=== PATIENT | female | born 1955 | race Caucasian/White ===

== ENCOUNTER 2017-06-27 10:47 | Observation (INO) | payer OTHER ==
[2017-06-27] MEDS ORDERED: SODIUM CHLORIDE 0.9% 500 ML IV STA (11:39)
[2017-06-27] MEDS ORDERED: ACETAMINOPHEN TAB 325 MG TAB PO STA (11:40)
[2017-06-27 12:02] LABS: Basophils % (A) 0 %; CHCM 34.8; Eosinophils # (A) 0.1 k/uL (0-0.7); Eosinophils % (A) 1 %; HCT 45.9 % (34.0-46.0); HDW 2.67; HGB 16.1 gm/dL (11.4-16.0); Luc # (Auto) 0.14; Luc % (Auto) 2; Lymphocytes # (A) 1.7 k/uL (1.0-4.8); Lymphocytes % (A) 20 %; MCH 30.4 pg (25.0-35.0); MCHC 35.1 g/dL (31.0-37.0); MCV 86.6 fL (80.0-100.0); Mean Platelet Volume 7.4; Monocytes # (A) 0.5 k/uL (0-1.0); Monocytes % (A) 5 %; Neutrophils # (A) 5.9 k/uL (1.3-7.7); Neutrophils % (A) 71 %; RDW 12.2 % (11.5-15.5); WBC 8.3 k/uL (3.8-10.6); WBC (Perox) 8.23
[2017-06-27 12:03] LABS: ALT 49 U/L (9-52); AST 28 U/L (14-36); Alkaline Phosphatase 69 U/L (38-126); Anion Gap 9 mmol/L; Blood Urea Nitrogen 15 mg/dL (7-17); Calcium 9.2 mg/dL (8.4-10.2); Carbon Dioxide 25 mmol/L (22-30); Chloride 109 mmol/L (98-107); Glucose 90 mg/dL (74-99); Magnesium 1.9 mg/dL (1.6-2.3); Non-African American GFR(MDRD) >60 (>60 ml/min/1.73 sqM); Potassium 4.1 mmol/L (3.5-5.1); Sodium 143 mmol/L (137-145); Total Bilirubin 0.4 mg/dL (0.2-1.3); Total Protein 6.4 g/dL (6.3-8.2)
[2017-06-27 12:04] LABS: Partial Thromboplastin Time 22.9 sec (22.0-30.0)
[2017-06-27 12:07] LABS: Prothrombin Time 10.4 sec (9.0-12.0)
[2017-06-27 12:12] LABS: Creatine Kinase 41 U/L (30-135)
[2017-06-27 12:25] LABS: Creatine Kinase MB 0.6 ng/mL (0.0-2.4); Troponin I <0.012 ng/mL (0.000-0.034)
--- NOTE | 2017-06-27 12:47 | CT ---
EXAMINATION TYPE: CT brain wo con DATE OF EXAM: 06/27/2017 COMPARISON: NONE INDICATION: Headache, elevated blood pressure DLP: 981.7 mGycm, Automated exposure control for dose reduction was used. CONTRAST: None CT of the brain is performed utilizing 3 mm thick sections through the posterior fossa and 3 mm thick sections through the remaining calvarium. Study is performed within 24 hours of arrival to the hosp [facility]. No abnormal hyperdensity is present to suggest an acute intracranial hemorrhage. No mass lesion is evident. No acute infarcts are evident. Ventricles and sulci are appropriate for the patient age. Paranasal sinuses and mastoid air cells within the [id number] are clear. IMPRESSIONS: 1. Normal CT Brain
--- NOTE | 2017-06-27 12:48 | XR ---
EXAMINATION TYPE: XR chest 2V DATE OF EXAM: 06/27/2017 COMPARISON: NONE INDICATION: Chest pain elevated blood pressure TECHNIQUE: Frontal and lateral views of the chest are obtained. FINDINGS: The heart size is normal. The pulmonary vasculature is normal. The lungs are clear. IMPRESSION: 1. No acute pulmonary process.
[2017-06-27] MEDS ORDERED: ASPIRIN 325 MG TAB PO STA (13:17)
[2017-06-27] MEDS ORDERED: ONDANSETRON 4 MG/2 ML VIAL IVP PRN (14:22)
[2017-06-27] MEDS ORDERED: NALOXONE 0.4 MG/ML 1 ML VIAL IV PRN (14:22)
[2017-06-27] MEDS ORDERED: MORPHINE SULFATE 4 MG/ML SYRINGE IV PRN (14:22)
[2017-06-27] MEDS ORDERED: SODIUM CHLORIDE 0.9% 1,000 ML IV SCH (14:30)
--- NOTE | 2017-06-27 14:39 | ED ---
General Adult HPI - General Chief complaint: Dizziness Stated complaint: HIGH BP, HEADACHE Time Seen by Provider: 06/27/17 11:07 Source: patient, family, RN notes reviewed Mode of arrival: wheelchair Limitations: no limitations - History of Present Illness Initial comments: 61-year-old female presents for evaluation of hypertension. She does have a history of hypertension, is currently taking metoprolol 25 mg 3 times daily. She was previously on Norvasc 5 mg, she was taken off this medication to 3 weeks ago. Patient states she took an additional 2.5 mg of Norvasc this morning prior to arrival. Patient's blood pressure was 199/111. Denies any shortness of breath. Denies abdominal pain. Patient does state she has a fluttering sensation and sharp chest pain in the center of her chest. This lasts for 1-2 seconds. Nonradiating, not associated with nausea vomiting or diarrhea. There is no diaphoresis. Chest pain is not sustained, and not associated with exertion. She also reports a headache which is localized to the top of her head, this was gradual in onset, throbbing in nature. Only additional past medical history is GERD, and she is a current smoker. - Related Data Home Medications Medication Instructions Recorded Confirmed ALPRAZolam [Xanax] 0.25 mg PO DAILY PRN 06/27/17 06/27/17 Metoprolol Tartrate [Lopressor] 25 mg PO TID 06/27/17 06/27/17 Pantoprazole Sodium [Protonix] 40 mg PO HS 06/27/17 06/27/17 Timolol [Betimol 0.5% Ophth Soln] 1 drop RIGHT EYE DAILY 06/27/17 06/27/17 traMADol HCL [Ultram] 50 mg PO BID PRN 06/27/17 06/27/17 Allergies Allergy/AdvReac Type Severity Reaction Status Date / Time Iodine and Iodide Containing Allergy Swelling Verified 06/27/17 12:36 Produc Penicillins Allergy Unknown Verified 06/27/17 12:36 prednisone Allergy Unknown Verified 06/27/17 12:36 contrast dye Allergy Swelling Uncoded 06/27/17 10:50 silk tape Allergy Unknown Uncoded 06/27/17 10:50 Review of Systems ROS Statement: Those systems with pertinent positive or pertinent negative responses have been documented in the HPI. ROS Other: All systems not noted in ROS Statement are negative. Past Medical History Past Medical History: GERD/Reflux, Hypertension Additional Past Medical History / Comment(s): back problems History of Any Multi-Drug Resistant Organisms: None Reported Past Surgical History: Cholecystectomy, Hysterectomy, Orthopedic Surgery Additional Past Surgical History / Comment(s): eye surgery, prothetic right eye , right shoulder Past Psychological History: Anxiety Smoking Status: Current every day smoker Past Alcohol Use History: None Reported Past Drug Use History: None Reported General Exam Limitations: no limitations General appearance: alert, in no apparent distress Head exam: Present: atraumatic, normocephalic Eye exam: Present: normal appearance, EOMI, other (Left eye is a prosthetic, right eye pupil equal round reactive to light, 3 mm) ENT exam: Present: normal exam, mucous membranes moist Neck exam: Present: normal inspection. Absent: tenderness, meningismus Respiratory exam: Present: normal lung sounds bilaterally. Absent: respiratory distress, wheezes Cardiovascular Exam: Present: regular rate, normal rhythm GI/Abdominal exam: Present: soft. Absent: distended, tenderness, guarding Extremities exam: Present: normal inspection, full ROM (DP pulses present bilaterally), other. Absent: normal capillary refill, pedal edema Neurological exam: Present: alert, oriented X3, CN II-XII intact. Absent: motor sensory deficit Psychiatric exam: Present: normal affect, normal mood Skin exam: Present: warm, dry, intact. Absent: cyanosis, diaphoretic Course Vital Signs 06/27/17 06/27/17 06/27/17 10:50 11:42 13:14 Temperature 98.2 F Pulse Rate 54 L 68 64 Respiratory 17 16 16 Rate Blood Pressure 195/95 177/73 169/89 O2 Sat by Pulse 97 98 Oximetry 06/27/17 13:36 Temperature Pulse Rate 69 Respiratory 18 Rate Blood Pressure 167/79 O2 Sat by Pulse 97 Oximetry - Reevaluation(s) Reevaluation #1: 06/27/17 14:38 On reevaluation, patient continues to have these intermittent episodes of palpitation and sharp chest pain. This pain is atypical for cardiac chest pain. Headache is improving. Blood pressure is down trending without treatment EKG Findings - EKG Comments: EKG Findings:: EKG shows sinus bradycardia with a ventricular 57, per old 2, QRS duration 102, QTC 406, there is no ST segment elevation or depression. Medical Decision Making - Medical Decision Making 61-year-old female presenting with chief complaint of hypertension, and gradual onset headache as well as some sharp intermittent chest pain. Patient's chest pain is sharp, it is associated with a palpitation, there is no signs of arrhythmia, pain does not seem cardiac in nature. Headache is resolving with Tylenol. Patient's blood pressure is down trending without treatment. She did take Norvasc prior to arrival. Patient's family is somewhat concerned about the level of blood pressure prior to arrival. I did speak extensively with the family that her chest pain does not sound cardiac in nature, her EKG is not concerning for heart attack, and her cardiac enzymes are negative. However given patient's history of smoking, and uncertainty surrounding both her hypertension and chest pain. She will be placed in observation for cardiology evaluation. Serial troponins will be obtained. Patient will be restarted on Norvasc at 2.5 mg daily. Blood pressure the vital signs are stable while in the emergency department. Patient family are agreeable with this plan. Diagnosis: Hypertension, atypical chest pain. - Lab Data Result diagrams: 06/27/17 11:30 06/27/17 11:30 Lab Results 06/27/17 06/27/17 06/27/17 Range/Units 11:30 11:30 11:30 WBC 8.3 (3.8-10.6) k/uL RBC 5.30 (3.80-5.40) m/uL Hgb 16.1 H (11.4-16.0) gm/dL Hct 45.9 (34.0-46.0) % MCV 86.6 (80.0-100.0) fL MCH 30.4 (25.0-35.0) pg MCHC 35.1 (31.0-37.0) g/dL RDW 12.2 (11.5-15.5) % Plt Count 280 (150-450) k/uL Neutrophils % 71 % Lymphocytes % 20 % Monocytes % 5 % Eosinophils % 1 % Basophils % 0 % Neutrophils # 5.9 (1.3-7.7) k/uL Lymphocytes # 1.7 (1.0-4.8) k/uL Monocytes # 0.5 (0-1.0) k/uL Eosinophils # 0.1 (0-0.7) k/uL Basophils # 0.0 (0-0.2) k/uL PT (9.0-12.0) sec INR (<1.2) APTT (22.0-30.0) sec Sodium 143 (137-145) mmol/L Potassium 4.1 (3.5-5.1) mmol/L Chloride 109 H (98-107) mmol/L Carbon Dioxide 25 (22-30) mmol/L Anion Gap 9 mmol/L BUN 15 (7-17) mg/dL Creatinine 0.75 (0.52-1.04) mg/dL Est GFR (MDRD) Af Amer >60 (>60 ml/min/1.73 sqM) Est GFR (MDRD) Non-Af >60 (>60 ml/min/1.73 sqM) Glucose 90 (74-99) mg/dL Calcium 9.2 (8.4-10.2) mg/dL Magnesium 1.9 (1.6-2.3) mg/dL Total Bilirubin 0.4 (0.2-1.3) mg/dL AST 28 (14-36) U/L ALT 49 (9-52) U/L Alkaline Phosphatase 69 (38-126) U/L Total Creatine Kinase 41 (30-135) U/L CK-MB (CK-2) 0.6 (0.0-2.4) ng/mL CK-MB (CK-2) Rel Index 1.5 Troponin I <0.012 (0.000-0.034) ng/mL NT-Pro-B Natriuret Pep pg/mL Total Protein 6.4 (6.3-8.2) g/dL Albumin 3.9 (3.5-5.0) g/dL 06/27/17 06/27/17 Range/Units 11:30 11:30 WBC (3.8-10.6) k/uL RBC (3.80-5.40) m/uL Hgb (11.4-16.0) gm/dL Hct (34.0-46.0) % MCV (80.0-100.0) fL MCH (25.0-35.0) pg MCHC (31.0-37.0) g/dL RDW (11.5-15.5) % Plt Count (150-450) k/uL Neutrophils % % Lymphocytes % % Monocytes % % Eosinophils % % Basophils % % Neutrophils # (1.3-7.7) k/uL Lymphocytes # (1.0-4.8) k/uL Monocytes # (0-1.0) k/uL Eosinophils # (0-0.7) k/uL Basophils # (0-0.2) k/uL PT 10.4 (9.0-12.0) sec INR 1.0 (<1.2) APTT 22.9 (22.0-30.0) sec Sodium (137-145) mmol/L Potassium (3.5-5.1) mmol/L Chloride (98-107) mmol/L Carbon Dioxide (22-30) mmol/L Anion Gap mmol/L BUN (7-17) mg/dL Creatinine (0.52-1.04) mg/dL Est GFR (MDRD) Af Amer (>60 ml/min/1.73 sqM) Est GFR (MDRD) Non-Af (>60 ml/min/1.73 sqM) Glucose (74-99) mg/dL Calcium (8.4-10.2) mg/dL Magnesium (1.6-2.3) mg/dL Total Bilirubin (0.2-1.3) mg/dL AST (14-36) U/L ALT (9-52) U/L Alkaline Phosphatase (38-126) U/L Total Creatine Kinase (30-135) U/L CK-MB (CK-2) (0.0-2.4) ng/mL CK-MB (CK-2) Rel Index Troponin I (0.000-0.034) ng/mL NT-Pro-B Natriuret Pep 281 pg/mL Total Protein (6.3-8.2) g/dL Albumin (3.5-5.0) g/dL Disposition Clinical Impression: Hypertension, Atypical chest pain Disposition: ADMITTED IP TO THIS [facility] Condition: Stable Referrals: Apurva Richardson DO [Primary Care Provider] - 1-2 days Decision to Admit Reason: Admit from EC Decision Date: 06/27/17 Decision Time: 14:05
[2017-06-27] MEDS: ALPRAZolam 0.25 MG TAB PO PRN (17:58)
[2017-06-27] MEDS: ACETAMINOPHEN TAB 325 MG TAB PO PRN (17:59)
[2017-06-27 18:31] VITALS: BMI 27.7
[2017-06-27 18:40] LABS: Creatine Kinase 39 U/L (30-135)
[2017-06-27 18:54] LABS: Creatine Kinase MB 0.5 ng/mL (0.0-2.4); Troponin I <0.012 ng/mL (0.000-0.034)
[2017-06-27] MEDS: METOPROLOL TARTRATE 25 MG TAB PO SCH (19:24)
[2017-06-27] MEDS: traMADol 50 MG TAB PO PRN (20:10)
[2017-06-27] MEDS: PANTOPRAZOLE 40 MG TABLET PO SCH (20:10)
[2017-06-28 00:12] LABS: Creatine Kinase 36 U/L (30-135)
[2017-06-28 00:25] LABS: Creatine Kinase MB 0.6 ng/mL (0.0-2.4); Troponin I <0.012 ng/mL (0.000-0.034)
[2017-06-28] MEDS: traMADol 50 MG TAB PO PRN ×3 (01:50→20:53)
[2017-06-28] MEDS: METOPROLOL TARTRATE 25 MG TAB PO SCH ×3 (02:09→17:59)
[2017-06-28 07:39] LABS: Basophils % (A) 1 %; CH 30.6; Eosinophils # (A) 0.2 k/uL (0-0.7); Eosinophils % (A) 3 %; HDW 2.58; HGB 15.4 gm/dL (11.4-16.0); Luc # (Auto) 0.15; Luc % (Auto) 3; Lymphocytes # (A) 2.5 k/uL (1.0-4.8); Lymphocytes % (A) 41 %; MCH 30.4 pg (25.0-35.0); MCHC 33.5 g/dL (31.0-37.0); MCV 90.7 fL (80.0-100.0); Mean Platelet Volume 7.1; Monocytes # (A) 0.3 k/uL (0-1.0); Monocytes % (A) 5 %; Neutrophils % (A) 49 %; RBC 5.07 m/uL (3.80-5.40); RDW 13.1 % (11.5-15.5); WBC 6.1 k/uL (3.8-10.6); WBC (Perox) 6.05
[2017-06-28 07:58] LABS: ALT 43 U/L (9-52); AST 26 U/L (14-36); Alkaline Phosphatase 54 U/L (38-126); Anion Gap 6 mmol/L; Blood Urea Nitrogen 15 mg/dL (7-17); Calcium 8.9 mg/dL (8.4-10.2); Carbon Dioxide 25 mmol/L (22-30); Chloride 110 mmol/L (98-107); Glucose 77 mg/dL (74-99); Non-African American GFR(MDRD) >60 (>60 ml/min/1.73 sqM); Potassium 4.4 mmol/L (3.5-5.1); Sodium 141 mmol/L (137-145); Total Bilirubin 0.4 mg/dL (0.2-1.3); Total Protein 5.8 g/dL (6.3-8.2)
[2017-06-28 08:26] LABS: Creatine Kinase MB 0.5 ng/mL (0.0-2.4)
[2017-06-28] MEDS ORDERED: ASPIRIN 325 MG TAB PO SCH (09:00)
[2017-06-28] MEDS ORDERED: amLODIPine 2.5 MG TAB PO SCH (09:00)
--- NOTE | 2017-06-28 09:16 | CONS ---
This is a 61-year-old female who presented with headaches and elevated blood pressures. She recently stopped amlodipine and after that her blood pressure has been steadily increasing. She had some atypical chest discomfort, but mostly headache and elevated blood pressure. She looks comfortable. No shortness of breath. At this time she is lying comfortably in bed. She has a past history of elevated blood pressures on Dr. Olivares note from 2009. At that time her blood pressure went up to 193/79 mmHg in the standing position associated with dizziness. Patient recently had a stress echo with Dr. Spencer in the office and apparently according to the patient was within normal limits. Past medical history of cholecystectomy, longstanding history of hypertension, she has prosthetic eye on left side. MEDICATIONS: She takes metoprolol 25 mg three times a day and has been bradycardic and this has been noted in the hospital too. She also stopped amlodipine. ALLERGIES: PENICILLIN AND IODINE. REVIEW OF SYSTEMS: No fever, chills, rigors. No cough or expectoration. No nausea, vomiting, diarrhea, hematuria, dysuria. No strokes or seizures. No skin lesions or musculoskeletal complaints. On examination, her blood pressure upon admission was 155/81 mmHg. Heart rates were in the high 40 and low 50s. Head and neck examination is normal. Heart sounds are S1, S2 normal. No murmurs, no gallops, no rubs. Breath sounds are normal. No rhonchi, no crackles. Abdomen is soft, nontender. Extremities are warm, no edema. EKG showed sinus rhythm and heart rate around 50 beats per minute. Normal ST segments. Normal GA interval. IMPRESSION: Longstanding history of hypertension and history of elevated blood pressures associated with dizziness. Her dizziness is most likely from high blood pressure not low blood pressure. Her heart rates while mildly bradycardic are usually in the 50s. She is on metoprolol 25 mg three times a day for palpitations and she describes it flip flops. She has event monitoring done and no sustained arrhythmias have been noted in the office by Dr. Spencer, according to the patient. SUGGEST: Amlodipine 5 mg this morning and 5 mg p.o. daily. Reduce the dose of metoprolol to 25 mg twice daily and consider reducing this further. I reassured the patient for minor palpitations it is probably not worth taking metoprolol and therefore, I am cutting down the dose while increasing the dose of amlodipine. She already has an appointment with Dr. Spencer in about 7 to 10 days and hopefully by then her blood pressure will be better controlled on 5 mg of amlodipine with possibly very low dose beta-bree. She should stay in the hospital for at least 24 hours more to ensure that her blood pressure is controlled. MTDD
[2017-06-28] MEDS: amLODIPine 5 MG TAB PO SCH (09:19)
[2017-06-28] MEDS: ASPIRIN 81 MG PO SCH (09:19)
[2017-06-28] MEDS: TIMOLOL 0.5% OPHTH DROPS 5 ML BTL RIGHT EYE SCH (09:20)
[2017-06-28] MEDS: ACETAMINOPHEN TAB 325 MG TAB PO PRN (09:21)
[2017-06-28] MEDS: ALPRAZolam 0.25 MG TAB PO PRN (15:46)
--- NOTE | 2017-06-28 18:18 | P.HPIM ---
History of Present Illness H&P Date: 06/28/17 Chief Complaint: Hypertensive emergency and headache Patient is a 61-year-old female who presented to [facility] emergency room with a chief complaint of severe headache and elevated blood pressure. She was evaluated in the emergency room her blood pressure was 195/ 95 she was admitted for 24-hour observation due to hypertensive emergency. Patient states that she has known history of palpitation and elevated blood pressure she has been maintained on metoprolol 25 mg 3 times daily she was also maintained on Norvasc however she developed episodes of bradycardia and Norvasc was discontinued at that time. Patient started having significant elevation in her blood pressure after Norvasc was discontinued. Past Medical History Past Medical History: Eye Disorder, GERD/Reflux, Hypertension Additional Past Medical History / Comment(s): back problems, left eye prosthetic eye, inactive gastritis History of Any Multi-Drug Resistant Organisms: None Reported Past Surgical History: Cholecystectomy, Hysterectomy, Orthopedic Surgery Additional Past Surgical History / Comment(s): eye surgery, prothetic left eye, left shoulder ligament repair Past Anesthesia/Blood Transfusion Reactions: No Reported Reaction Past Psychological History: Anxiety Smoking Status: Current every day smoker Past Alcohol Use History: None Reported Past Drug Use History: None Reported - Past Family History Mother Family Medical History: Congestive Heart Failure (CHF), Myocardial Infarction ( [place]), Renal Disease Father Family Medical History: CVA/TIA, Diabetes Mellitus Medications and Allergies Home Medications Medication Instructions Recorded Confirmed Type ALPRAZolam [Xanax] 0.25 mg PO DAILY PRN 06/27/17 06/27/17 History Metoprolol Tartrate [Lopressor] 25 mg PO TID 06/27/17 06/27/17 History Pantoprazole Sodium [Protonix] 40 mg PO HS 06/27/17 06/27/17 History Timolol [Betimol 0.5% Ophth Soln] 1 drop RIGHT EYE DAILY 06/27/17 06/27/17 History traMADol HCL [Ultram] 50 mg PO BID PRN 06/27/17 06/27/17 History Allergies Allergy/AdvReac Type Severity Reaction Status Date / Time Iodine and Iodide Containing Allergy Swelling Verified 06/27/17 12:36 Produc Penicillins Allergy Unknown Verified 06/27/17 12:36 prednisone Allergy Unknown Verified 06/27/17 12:36 contrast dye Allergy Swelling Uncoded 06/27/17 10:50 silk tape Allergy Unknown Uncoded 06/27/17 10:50 Physical Exam Vitals: Vital Signs Temp Pulse Pulse Pulse Resp BP BP 06/28/17 16:00 97.8 F 55 L 16 06/28/17 12:00 97.7 F 51 L 14 06/28/17 07:59 97.6 F 57 L 14 06/28/17 04:00 98 F 49 L 54 L 18 155/81 184/71 06/28/17 02:01 55 L 06/28/17 00:00 51 L 18 06/27/17 22:27 60 18 06/27/17 20:00 56 L 18 06/27/17 19:18 98 F 68 18 BP BP Pulse Ox 06/28/17 16:00 128/65 97 06/28/17 12:00 136/76 96 06/28/17 07:59 134/65 97 06/28/17 04:00 139/78 95 06/28/17 02:01 134/63 06/28/17 00:00 06/27/17 22:27 133/82 97 06/27/17 20:00 06/27/17 19:18 117/61 96 Intake and Output 06/28/17 06/28/17 06/28/17 06:59 14:59 22:59 Other: Voiding Method Toilet Toilet Toilet In general patient is alert and oriented 3 in no apparent distress HEENT head normocephalic and atraumatic Neck is supple no JVD no goiter no lymphadenopathy Chest exam reveals a scattered crackles in both bases no wheezing Cardiac exam reveals regular heart sounds S1 and S2 no gallops no murmurs Abdomen is soft nontender no organomegaly with normal bowel sounds Extremity exam reveals no edema no cyanosis or clubbing Results CBC & Chem 7: 06/28/17 06:39 06/28/17 06:39 Labs: Abnormal Lab Results - Last 24 Hours (Table) 06/28/17 06/28/17 Range/Units 06:39 06:39 Chloride 110 H (98-107) mmol/L Total Creatine Kinase 29 L (30-135) U/L Total Protein 5.8 L (6.3-8.2) g/dL Albumin 3.4 L (3.5-5.0) g/dL Thrombosis Risk Factor Assmnt - Choose All That Apply Each Factor Represents 1 point: Obesity (BMI >25) Each Risk Factor Represents 2 Points: Age 61-74 years Thrombosis Risk Factor Assessment Total Risk Factor Score: 3 Thrombosis Risk Factor Assessment Level: Moderate Risk Assessment and Plan Plan: #1 hypertension was hypertensive emergency #2 severe headache likely related to hypertension #3 underlying history of gastroesophageal reflux disease #4 underlying history of degenerative disc disease with chronic back pain At this time patient is admitted for 24-hour observation cardiology consultation was requested Blood pressure medications are being readjusted, Norvasc was added a cane and dose of metoprolol was decreased to twice daily due to bradycardia Will monitor closely possible discharge to home in a.m.
[2017-06-28] MEDS: PANTOPRAZOLE 40 MG TABLET PO SCH (20:53)
[2017-06-29] MEDS: ALPRAZolam 0.25 MG TAB PO PRN (01:49)
[2017-06-29] MEDS: traMADol 50 MG TAB PO PRN (06:56)
[2017-06-29 07:46] LABS: Basophils % (A) 1 %; CH 30.7; CHCM 33.5; Eosinophils # (A) 0.2 k/uL (0-0.7); Eosinophils % (A) 3 %; HCT 48.7 % (34.0-46.0); HDW 2.57; HGB 15.5 gm/dL (11.4-16.0); Luc # (Auto) 0.15; Luc % (Auto) 2; Lymphocytes # (A) 2.4 k/uL (1.0-4.8); Lymphocytes % (A) 33 %; MCH 29.4 pg (25.0-35.0); MCHC 31.8 g/dL (31.0-37.0); MCV 92.3 fL (80.0-100.0); Monocytes # (A) 0.3 k/uL (0-1.0); Monocytes % (A) 5 %; Neutrophils # (A) 4.2 k/uL (1.3-7.7); Neutrophils % (A) 57 %; RBC 5.28 m/uL (3.80-5.40); RDW 13.6 % (11.5-15.5); WBC 7.3 k/uL (3.8-10.6); WBC (Perox) 7.22
[2017-06-29 07:54] LABS: ALT 42 U/L (9-52); AST 26 U/L (14-36); Alkaline Phosphatase 60 U/L (38-126); Anion Gap 8 mmol/L; Blood Urea Nitrogen 20 mg/dL (7-17); Calcium 9.1 mg/dL (8.4-10.2); Carbon Dioxide 29 mmol/L (22-30); Chloride 105 mmol/L (98-107); Glucose 77 mg/dL (74-99); Non-African American GFR(MDRD) >60 (>60 ml/min/1.73 sqM); Potassium 4.5 mmol/L (3.5-5.1); Sodium 142 mmol/L (137-145); Total Bilirubin 0.4 mg/dL (0.2-1.3)
[2017-06-29] MEDS: amLODIPine 5 MG TAB PO SCH (08:42)
[2017-06-29] MEDS: METOPROLOL TARTRATE 25 MG TAB PO SCH (08:42)
[2017-06-29] MEDS: ASPIRIN 81 MG PO SCH (08:42)
[2017-06-29] MEDS: TIMOLOL 0.5% OPHTH DROPS 5 ML BTL RIGHT EYE SCH (11:06)
--- NOTE | 2017-06-29 11:14 | P.DS ---
Providers Date of admission: 06/27/17 14:43 Expected date of discharge: 06/29/17 Attending physician: Attila Salazar Consults: 06/27/17 14:23 Consult Physician Urgent Consulting Provider: Nash Jack Consult Reason/Comments: Hypertension, chest pain Do you want consulting provider notified?: Yes Primary care physician: Apurva [facility] Course: Discharge diagnosis #1 hypertension was hypertensive emergency #2 severe headache likely related to hypertension #3 underlying history of gastroesophageal reflux disease #4 underlying history of degenerative disc disease with chronic back pain Hospital course Patient is a 61-year-old female who presented to [facility] emergency room with a chief complaint of severe headache and elevated blood pressure. She was evaluated in the emergency room her blood pressure was 195/ 95 she was admitted for 24-hour observation due to hypertensive emergency. Patient states that she has known history of palpitation and elevated blood pressure she has been maintained on metoprolol 25 mg 3 times daily she was also maintained on Norvasc however she developed episodes of bradycardia and Norvasc was discontinued at that time. Patient started having significant elevation in her blood pressure after Norvasc was discontinued. Patient has computed tomography scan of the brain showing no acute changes. And likely her headache was related to her hypertension. Headache has now resolved. Cardiology evaluated patient has adjusted medications. Metoprolol has been decreased from 3 times a day to 25 mg twice a day. Norvasc has been added at 5 mg daily. Patient has had improvement in blood pressures. She is stable for discharge. She'll follow-up with cardiology and PCP in the outpatient setting. please refer to chart for any further details. I performed an examination of the patient and discussed their management with the physician Field Placement Director. I have reviewed the Physician Field Placement Director's notes and agree with the documented findings and plan of care Patient Condition at Discharge: Stable Plan - Discharge Summary New Discharge Prescriptions: New amLODIPine [Norvasc] 5 mg PO DAILY #30 tab Metoprolol Tartrate [Lopressor] 25 mg PO BID@0900,1800 #60 tab Aspirin EC [Ecotrin Low Dose] 81 mg PO DAILY #30 tablet. Continue traMADol HCL [Ultram] 50 mg PO BID PRN PRN Reason: Pain Timolol [Betimol 0.5% Ophth Soln] 1 drop RIGHT EYE DAILY ALPRAZolam [Xanax] 0.25 mg PO DAILY PRN PRN Reason: Anxiety Pantoprazole Sodium [Protonix] 40 mg PO HS Discontinued Metoprolol Tartrate [Lopressor] 25 mg PO TID Discharge Medication List ALPRAZolam [Xanax] 0.25 mg PO DAILY PRN 06/27/17 [History] Pantoprazole Sodium [Protonix] 40 mg PO HS 06/27/17 [History] Timolol [Betimol 0.5% Ophth Soln] 1 drop RIGHT EYE DAILY 06/27/17 [History] traMADol HCL [Ultram] 50 mg PO BID PRN 06/27/17 [History] Aspirin EC [Ecotrin Low Dose] 81 mg PO DAILY #30 tablet. 06/29/17 [Rx] Metoprolol Tartrate [Lopressor] 25 mg PO BID@0900,1800 #60 tab 06/29/17 [Rx] amLODIPine [Norvasc] 5 mg PO DAILY #30 tab 06/29/17 [Rx] Follow up Appointment(s)/Referral(s): Jc Spencer MD [STAFF PHYSICIAN] - 2 Weeks Apurva Richardson DO [Primary Care Provider] - 1 Week Activity/Diet/Wound Care/Special Instructions: Diet: cardiac Activity: as tolerated Discharge Disposition: HOME SELF-CARE
[2017-06-29 11:33] VITALS: BP 115/64; PULSE 52; RESP 16; TEMP 97.9
== END 2017-06-29 11:55 | disposition home or self-care (01) ==
LOC: EC 10:47 → 3OBS 14:43
PROVIDERS: ADMIT Internal Medicine; ATTEND Internal Medicine
DX: I10 Essential (primary) hypertension (principal); I16.1 Hypertensive emergency; R51 Headache; K21.9 Gastro-esophageal reflux disease without esophagitis; M54.9 Dorsalgia, unspecified; R00.1 Bradycardia, unspecified; R00.2 Palpitations; G89.29 Other chronic pain; F41.9 Anxiety disorder, unspecified; Z79.899 Other long term (current) drug therapy; F17.200 Nicotine dependence, unspecified, uncomplicated; Z88.3 Allergy status to other anti-infective agents; Z91.041 Radiographic dye allergy status; Z88.0 Allergy status to penicillin; Z88.8 Allergy status to other drugs, medicaments and biological substances; Z91.048 Other nonmedicinal substance allergy status; Z97.0 Presence of artificial eye; Z82.49 Family history of ischemic heart disease and other diseases of the circulatory system; Z83.3 Family history of diabetes mellitus
CPT/HCPCS: 99285; 96361 ×2; 96374; 36415; 94760; 93005; 83880; 80053 ×3; 82550 ×2; 82553 ×2; 83735; 84484; 85025 ×3; 85610; 85730; 71020; 70450; G0378 ×3; J2405

== ENCOUNTER → 2018-02-22 | Outpatient (CLI) | payer OTHER ==
[2018-02-22 12:11] LABS: Basophils % (A) 0 %; Eosinophils # (A) 0.2 k/uL (0-0.7); Eosinophils % (A) 2 %; HCT 44.3 % (34.0-46.0); HGB 14.6 gm/dL (11.4-16.0); Lymphocytes # (A) 1.8 k/uL (1.0-4.8); Lymphocytes % (A) 28 %; MCHC 32.9 g/dL (31.0-37.0); Mean Platelet Volume 6.7; Monocytes # (A) 0.4 k/uL (0-1.0); Monocytes % (A) 6 %; Neutrophils % (A) 61 %; Platelet Count 328 k/uL (150-450); RBC 5.21 m/uL (3.80-5.40); RDW 12.7 % (11.5-15.5); WBC 6.5 k/uL (3.8-10.6)
--- NOTE | 2018-02-22 12:17 | XR ---
EXAMINATION TYPE: XR chest 2V DATE OF EXAM: 02/22/2018 COMPARISON: 06/27/2017 HISTORY: 62-year-old female preoperative evaluation for spine surgery TECHNIQUE: PA and lateral views FINDINGS: The heart is normal size. Aorta and pulmonary vasculature are within normal limits. Nodular density a t the right tracheobronchial angle could reflect a prominent azygos vein. Short interval follow-up is recommended. Strandy bibasilar atelectasis. No consolidation or pleural effusion. Surgical gary a t the right glenoid. IMPRESSION: 1. No acute cardiopulmonary process. 2. Some nodular density at the right tracheobronchial angle probably represents summation artifact an d/or a prominent azygos vein. Short interval follow-up in 4-6 weeks recommended to reassess.
[2018-02-22 12:18] LABS: Appearance,Urine Cloudy (Clear); Bilirubin,Urine Negative (Negative); Blood,Urine Small (Negative); Color,Urine Yellow; Glucose,Urine (UA) Negative (Negative); Ketones,Urine Negative (Negative); Leukocyte Esterase,Urine Negative (Negative); Mucus,Urine Rare /hpf; Nitrite,Urine Negative (Negative); PH, Urine 5.5 (5.0-8.0); Protein,Urine Negative (Negative); RBC,Urine 2 /hpf (0-5); Squamous Epithelial Cell,Urine 7 /hpf (0-4); Urobilinogen,Urine <2.0 mg/dL (<2.0); WBC,Urine 2 /hpf (0-5)
[2018-02-22 12:27] LABS: Partial Thromboplastin Time 22.9 sec (22.0-30.0); Prothrombin Time 9.8 sec (9.0-12.0)
[2018-02-22 12:41] LABS: Anion Gap 11 mmol/L; Blood Urea Nitrogen 16 mg/dL (7-17); Calcium 9.1 mg/dL (8.4-10.2); Carbon Dioxide 27 mmol/L (22-30); Chloride 105 mmol/L (98-107); Glucose 74 mg/dL (74-99); Potassium 4.4 mmol/L (3.5-5.1); Sodium 143 mmol/L (137-145)
== END | disposition home or self-care (01) ==
LOC: LABPAT 11:12
PROVIDERS: ATTEND Orthopaedic Surgery Orthopaedic Surgery of the Spine
DX: Z01.818 Encounter for other preprocedural examination (principal); Z01.812 Encounter for preprocedural laboratory examination; R91.8 Other nonspecific abnormal finding of lung field; M48.00 Spinal stenosis, site unspecified
CPT/HCPCS: 36415; 71046; 80048; 81001; 85025; 85610; 85730; 86850; 86900; 86901; 87070

== ENCOUNTER 2018-03-03 06:35 | Inpatient (IN) | payer OTHER ==
[~2018-03-03 06:35] MED LIST: BACITRACIN 50,000 UNIT, POLYMYXIN B 500,000 UNIT in SODIUM CHLORIDE 0.9% IRRIGATIO 1,00... IRRIGATION ONE; Pre Op ABX Message 1 EACH MISC MISCELLANE ONE
[2018-03-03] MEDS ORDERED: LIDOCAINE 1% 20 ML VIAL (10MG/ML) FOR IV START INTRADERMA PRN (06:52)
[2018-03-03] MEDS ORDERED: ONDANSETRON ODT 4 MG TAB PO ONE (06:52)
[2018-03-03] MEDS: LACTATED RINGERS 1,000 ML IV SCH (07:37)
[2018-03-03] MEDS ORDERED: ONDANSETRON 4 MG/2 ML VIAL IVP ONE (07:43)
[2018-03-03] MEDS ORDERED: ceFAZolin 1,000 MG VIAL IVPB ONE (08:50)
[2018-03-03 08:51] LABS: Glucose,Whole Blood 105 mg/dL (75-99)
[2018-03-03] MEDS ORDERED: GELATIN SPONGE,ABSORB (SMALL) 1 EACH SPONGE TOPICAL ONE (09:14)
[2018-03-03] MEDS ORDERED: BUPIVACAINE-EPI 0.5%-1:200,000 10 ML VIAL SQ ONE ×2 (09:14→10:10)
[2018-03-03] MEDS ORDERED: THROMBIN (BOVINE) 5,000 UNIT VIAL TOPICAL ONE (09:15)
[2018-03-03] MEDS ORDERED: LACTATED RINGERS 1,000 ML IV ONE ×2 (09:45→12:05)
--- NOTE | 2018-03-03 12:20 | FL ---
Fluoroscopy History: min. invasive lumbar fusion minimally invasive lumbar fusion. 96 sec fl time. 2 carms used for case. 2 images scanned
[2018-03-03] MEDS ORDERED: ONDANSETRON 4 MG/2 ML VIAL IVP PRN (12:33)
[2018-03-03] MEDS ORDERED: BENZOCAINE/MENTHOL LOZENG 1 EACH LOZENGE MUCOUS MEM PRN (12:33)
[2018-03-03] MEDS ORDERED: traMADol 50 MG TAB PO PRN (12:36)
[2018-03-03] MEDS: MORPHINE SULFATE 2 MG/ML SYRINGE IV PRN ×6 (12:39→14:39)
--- NOTE | 2018-03-03 12:43 | P.OP ---
Date of Procedure: 03/03/18 Preoperative Diagnosis: Spinal stenosis L4 5 L5-S1, degenerative disc disease L4 5 L5-S1, low back pain , lower extremity radiculopathy, facet arthrosis Postoperative Diagnosis: Same Anesthesia: GETA Pathology: none sent Condition: stable Disposition: PACU Description of Procedure: DESCRIPTION OF PROCEDURE(S): BRIEF OPERATIVE NOTE Preoperative Diagnosis: Spinal stenosis L4 5 L5-S1, degenerative disc disease L4 5 L5-S1, low back pain, lower extremity radiculopathy, facet arthrosis Postoperative Diagnosis: Same Procedure: Laminectomy and decompression with bilateral foraminotomies and left facetectomy L4 5 L5-S1 Minimally invasive Posterior lateral decompression and fusion L4 5 L5-S1 Minimally invasive Transforaminal lumbar interbody fusion for a 360 fusion L4 5 and L5-S1 Discectomy for decompression L4 5 L5-S1 Placement of interbody graft L4 5 L5-S1 Harvesting of bone marrow aspirate the pedicle and vertebral body of L4 on the right Local autogenous bone grafting Use of Cell Saver Use of bone graft extenders Surgeon: Dr. Pereira Distribution Operation Supervisor: Jose Elias SIMONS who is present throughout the entire the case persistence during positioning, dissection, exposure, visualization, and all crucial elements of the case as well as closure. Anesthesia: General anesthesia per Dr. Millard Estimated blood loss: Approximately 150 mL Complications: None apparent Components implanted: K2M minimally invasive [place] pedicle screw system with rods and screws measuring 6.5 x 40 and 45 no meters with a [place] interbody cage as well as a Dyer interbody expandable cage Disposition: To recovery room in good stable condition. OPERATIVE INDICATIONS The patient has had long-standing issues in their lower back and lower extremities. She is found have severe changes at L4 5 and L5-S1 with significant disc degeneration facet arthrosis and foraminal stenosis. She had disc protrusion as well. She was having significant low back pain and lower extremity radicular symptoms which correlated well with her low back imaging. The patient has been through conservative treatment. Despite conservative treatment she was not having any significant improvement and was having some worsening of her symptoms over time. We discussed various treatment options including surgery, and the patient wishes to proceed with surgery We discussed the risk, patient's alternatives and benefits of surgery including but not limited to, risk of bleeding risk of infection, risk of need for further surgery , risk of decreased, loss of motion, muscle function, malunion nonunion, hardware failure, nerve damage, paralysis, heart attack, blindness and . OPERATIVE SUMMARY After discussing all the risks, patient alternatives and benefits at length, the patient elected to proceed with surgical intervention, signed informed consent, and presented for their procedure. The patient was seen and examined in the preoperative holding area and the surgical site was marked. The patient was given antibiotics and brought to the operating room. The patient was sedated and intubated by anesthesia in standard fashion. The patient was positioned on to the operating room table in a prone position on the appropriate frame which was well-padded and well molded. We were careful to pad any bony prominences and pressure points. We were careful to maintain the patient's cervical spine and good neutral alignment and position throughout. The patient was prepped and draped in a normal standard fashion. An appropriate timeout and keystone protocol performed. We were able to proceed with the surgery. The local wound area was infiltrated with local anesthetic. I was able utilize C-arm guidance to establish appropriate position over the pedicles bilaterally at the appropriate levels at L4 5 and L5-S1. With the appropriate levels confirmed was able to make small stab incisions over the appropriate pedicle sites bilaterally. Utilizing C-arm in his house able to establish a Jamshidi needle over the lateral aspect of the pedicle and advanced the trocar into the pedicle being careful not to breech superiorly inferiorly medially or laterally. Position was confirmed regularly with AP and lateral images on C-arm. I was able to establish the trocar into the pedicle appropriately into the posterior aspect of the vertebral body bilaterally at the appropriate levels. This was done at each of the pedicle positions and each of the vertebrae. At L4 on the right I was able to withdraw approximately 20 mL of bone marrow aspirate for use later in the case to supplement the bone graft. I was able place the guidewire into the trocar and into the vertebral body appropriately under C-arm guidance. Dissection was taken down over the wire to the appropriate starting position for the screw placed. This was done at L4-L5 and S1 bilaterally The appropriate length screw was chosen, threaded over the guidewire and screwed appropriately into the pedicle and vertebral body under C-arm guidance in excellent alignment and position with good bony purchase. This is done at each of the screw sites at the appropriate levels at L4-L5 and S1 bilaterally. With the screws intact I extended the incision to connect the screw hole sites on the most symptomatic side on the right. I dissected down to establish access over the pars and lamina to the base of the spinous process. I was able to expose the facet joint. The capsule the facet was taken down and showed some facet arthrosis at the joint. I was able to use a combination of curettes and Kerrison rongeurs and a high-speed drill to take down the facet joint and do a facetectomy. Partial laminectomy was also performed. I was able get excellent foraminal decompression and central decompression with undermining across midline to perform a laminectomy centrally and contralaterally. As able get good central decompression at L4 5 and L5-S1. The ligamentum flavum was taken down to further decompress centrally and at bilateral neural foramen. I was able to expose the disc space and visualize the traversing nerve root. Note was made of some disc protrusion at the level causing further compression of the nerve root. There is some further foraminal encroachment due to the disc protrusion. I was able to establish a annulotomy at the appropriate level protecting soft tissue and neural structures. Note was made of some significant disc desiccation at the disc. I performed a complete discectomy with accommodation of curettes and rasps and scrapers. The discectomy provided further decompression as well. I was able get good endplate preparation at the disc space. I sized for the appropriate size interbody spacer protecting the soft tissue and neural structures. The wound was copiously irrigated and suctioned dry. There is no evidence of any dural tear or leak. I was able to pack the disc space with local autogenous bone graft as well as a small amount of bone graft which was also placed into the interbody cage itself. At L5-S1 I used a [place] cage and at L4 5 I used an expandable Dyer cage. Protecting the soft tissue structures and neural structures I was able place the interbody cage in good alignment and good position with good fit and fill at the interbody space. His issues was confirmed with C-arm guidance. Good hemostasis maintained. There is no evidence of any dural tear or leak. The wound was irrigated and suctioned dry. With the hardware intact, intraoperative C-arm imaging was again taken which showed good alignment and position of the hardware at the appropriate levels at L4 5 and L5-S1. We were then able to measure, contour and place the rods and appropriate hardware bilaterally. I was able to place capcrews, tighten them down, and torque them with the torque screwdriver appropriately. With this intact I was able to place the local autogenous bone graft with additional bone graft enhancer as necessary into the posterior lateral gutters over the decorticated transverse processes. The remainder of the bone graft was placed over the facet joint on the contralateral side after taking down the facet joint capsule. With the bone graft intact, a stable construct, and good decompression at the appropriate levels, we were able to proceed with closure. Good hemostasis was maintained. There is no evidence of dural tear or leak. The fascia was closed for a watertight closure. he subcuticular tissue was closed with absorbable suture. The wound was cleaned and dried and dressed with the appropriate dressing. The drapes were broken down. The patient was gently rolled back onto their hospital bed being careful to maintain their cervical spine and good neutral alignment and position. They were woken up by anesthesia, extubated, and brought to the recovery room in good stable condition. The patient will be admitted to the hospital for appropriate postoperative care , medical management and monitoring. We will continue to follow them closely about the postoperative course.
[2018-03-03] MEDS ORDERED: diphenhydrAMINE 50 MG/ML 1 ML VIAL IVP ONE (13:05)
[2018-03-03] MEDS: MEPERIDINE 50 MG/ML SYRINGE IVP ONE ×2 (13:11→13:47)
[2018-03-03] MEDS: DIAZEPAM 5 MG TAB PO PRN ×3 (14:30→23:21)
[2018-03-03] MEDS: ceFAZolin IN SWFI 2 GM/20 ML SYRINGE IVP SCH (16:16)
[2018-03-03] MEDS: MORPHINE SULFATE 4 MG/ML SYRINGE IVP PRN ×2 (16:17→20:19)
[2018-03-03] MEDS: METOPROLOL TARTRATE 25 MG TAB PO SCH (17:30)
[2018-03-03] MEDS: SODIUM CHLORIDE 0.9% 1,000 ML IV SCH (17:32)
[2018-03-03] MEDS: HYDROcodone/APAP 5-325MG 1 EACH TAB PO PRN ×2 (18:55→23:14)
[2018-03-03] MEDS: PANTOPRAZOLE 40 MG TABLET PO SCH (20:07)
[2018-03-03] MEDS: FAMOTIDINE 20 MG TAB PO SCH (20:19)
[2018-03-03] MEDS: ALPRAZolam 0.25 MG TAB PO PRN (23:14)
[2018-03-04] MEDS: MORPHINE SULFATE 4 MG/ML SYRINGE IVP PRN ×2 (00:20→05:07)
[2018-03-04] MEDS: ceFAZolin IN SWFI 2 GM/20 ML SYRINGE IVP SCH (00:21)
[2018-03-04] MEDS: SODIUM CHLORIDE 0.9% 1,000 ML IV SCH ×2 (03:11→15:40)
[2018-03-04] MEDS: HYDROcodone/APAP 5-325MG 1 EACH TAB PO PRN ×4 (03:13→20:30)
[2018-03-04] MEDS ORDERED: amLODIPine 5 MG TAB PO SCH (06:00)
[2018-03-04] MEDS: AMLODIPINE 5 MG PO SCH (06:08)
[2018-03-04] MEDS: METOPROLOL TARTRATE 25 MG TAB PO SCH ×2 (06:09→18:32)
[2018-03-04] MEDS: DIAZEPAM 5 MG TAB PO PRN ×2 (06:09→18:26)
[2018-03-04] MEDS: LACTATED RINGERS 1,000 ML IV SCH (06:27)
[2018-03-04 07:43] LABS: Basophils % (A) 0 %; Eosinophils % (A) 0 %; HCT 38.5 % (34.0-46.0); HGB 13.1 gm/dL (11.4-16.0); Lymphocytes # (A) 0.9 k/uL (1.0-4.8); Lymphocytes % (A) 9 %; MCHC 33.9 g/dL (31.0-37.0); MCV 85.5 fL (80.0-100.0); Mean Platelet Volume 6.6; Monocytes # (A) 0.4 k/uL (0-1.0); Monocytes % (A) 4 %; Neutrophils # (A) 8.9 k/uL (1.3-7.7); Neutrophils % (A) 86 %; Platelet Count 237 k/uL (150-450); RDW 12.6 % (11.5-15.5); WBC 10.3 k/uL (3.8-10.6)
[2018-03-04 07:44] LABS: Anion Gap 10 mmol/L; Blood Urea Nitrogen 8 mg/dL (7-17); Calcium 8.3 mg/dL (8.4-10.2); Carbon Dioxide 27 mmol/L (22-30); Chloride 106 mmol/L (98-107); Glucose 115 mg/dL (74-99); Potassium 4.2 mmol/L (3.5-5.1); Sodium 143 mmol/L (137-145)
--- NOTE | 2018-03-04 09:12 | P.PN ---
Progress Note - Text Progress Note Date: 03/04/18 Postoperative day #1 Patient is seen and examined today at bedside. The patient has some pain around the surgical site as expected. She had significant spasms overnight which resolved to some degree with medications and is having some spasm again this morning. This seems to be somewhat controlled with heat around her paravertebral musculature and continue medications. Pain is being controlled with medication. She is not having a changes in her lower extremities. She is tolerating her diet appropriately. Physical Exam Afebrile with stable vital signs Abdomen is soft nontender. Chest has good excursion deep and space expiration The incision site is clean dry and intact. No erythema there is no purulence. The dressing is intact and it is still dry. Extremities have not had neurologic change from prior to surgery. She has sustained dorsal flexion plantarflexion and EHL intact Calves and thighs were soft nontender without evidence of DVT. Assessment/Plan Postoperative day #1 status post decompression L4 5 and L5-S1 for her spinal stenosis with degenerative disc disease low back pain and lower extremity radiculopathy Patient is having some spasms around her back which is not uncommon for this procedure but otherwise is progressing as expected from the surgery. We will continue to increase the patient's mobilization with therapy. She has been able to get up and around and her Callaway was discontinued. We will continue pain control with oral or IV medications. We'll continue to follow patient closely.
[2018-03-04] MEDS: HYDROmorphone 2 MG TAB PO PRN ×3 (09:46→20:31)
[2018-03-04] MEDS: MAGNESIUM HYDROXIDE 2,400 MG/10 ML CUP PO PRN (09:46)
[2018-03-04] MEDS: ASPIRIN 81 MG PO SCH (09:47)
[2018-03-04] MEDS: BRIMONIDINE TARTRATE 0.2% DROPS 5 ML BTL RIGHT EYE SCH (09:54)
[2018-03-04] MEDS: SENNOSIDES-DOCUSATE SODIUM 1 EACH TAB PO SCH (09:54)
[2018-03-04] MEDS ORDERED: diphenhydrAMINE 25 MG CAP PO STA (10:22)
--- NOTE | 2018-03-04 10:33 | P.CONS ---
History of Present Illness - Reason for Consult Consult date: 03/04/18 Medical management Requesting physician: Lisa Pereira - Chief Complaint Status post decompression L4 to 5 and L5 to S1 for her spinal stenosis - History of Present Illness This is a 62-year-old female, patient of Dr. Richardson. She has known past medical history of hypertension, irritable bowel syndrome, GERD and ocular hypertension. Patient also has a significant history of chronic back pain with spinal stenosis degenerative disc disease and lower extremity radiculopathy. She underwent decompression of L4 to L5 and L5 to S1 for her spinal stenosis. She is postop day #1. We will consulted for medical management. She is tolerated surgery well. Through the evening she had severe muscle spasms in her back. Patient was receiving Valium morphine and [place]. Orthopedics have added Dilaudid. Also applying heat to the area has improved some of her symptoms. Patient also has developed a rash on her back but appears to be may be related to a tape or bandage. She denies any itching. No blistering or hives. Patient denies any chest pain or shortness breath. Denies any nausea or vomiting. No bowel movement yet. Likely catheter was removed this morning. Patient has not voided yet. She has been up and ambulating with physical therapy. Review of Systems Please refer to HPI otherwise unremarkable Past Medical History Past Medical History: Eye Disorder, GERD/Reflux, Hypertension, Osteoarthritis ( OA) Additional Past Medical History / Comment(s): back problems and pain, left eye prosthetic eye, inactive gastritis,SOB,constipation,IBS,hemorrhoids,hypoglycemia History of Any Multi-Drug Resistant Organisms: None Reported Past Surgical History: Cholecystectomy, Hysterectomy, Orthopedic Surgery Additional Past Surgical History / Comment(s): eye surgery, prothetic left eye, right shoulder ligament repair Past Anesthesia/Blood Transfusion Reactions: No Reported Reaction Past Psychological History: Anxiety Smoking Status: Current every day smoker Past Alcohol Use History: None Reported Additional Past Alcohol Use History / Comment(s): started smoking at age 19,< 1ppd Past Drug Use History: None Reported - Past Family History Mother Family Medical History: Congestive Heart Failure (CHF), Myocardial Infarction ( [place]), Renal Disease Father Family Medical History: CVA/TIA, Diabetes Mellitus Medications and Allergies Home Medications Medication Instructions Recorded Confirmed Type ALPRAZolam [Xanax] 0.125 - 0.25 mg PO BID PRN 06/27/17 03/03/18 History Pantoprazole Sodium [Protonix] 40 mg PO DAILY@1700 06/27/17 03/03/18 History traMADol HCL [Ultram] 50 mg PO TID PRN 06/27/17 03/03/18 History Aspirin EC [Ecotrin Low Dose] 81 mg PO DAILY #30 tablet. 06/29/17 03/03/18 Rx Brimonidine Tartrate [Alphagan P 1 drops RIGHT EYE QAM 02/25/18 03/03/18 History 0.2% Ophth Soln] Famotidine 40 mg PO HS 02/25/18 03/03/18 History Metoprolol Tartrate [Lopressor] 25 mg PO BID@0600,1800 02/25/18 03/03/18 History amLODIPine [Norvasc] 5 mg PO DAILY@0600 02/25/18 03/03/18 History Allergies Allergy/AdvReac Type Severity Reaction Status Date / Time adhesive tape Allergy miller skin Verified 03/03/18 13:33 erythromycin base Allergy Nausea & Verified 03/03/18 13:33 Vomiting Iodinated Contrast- Oral and Allergy Swelling Verified 03/03/18 13:33 IV Dye Iodine and Iodide Containing Allergy Swelling Verified 03/03/18 13:33 Produc Penicillins Allergy Unknown Verified 03/03/18 13:33 prednisone Allergy facial Verified 03/03/18 13:33 swelling contrast dye Allergy Swelling Uncoded 02/25/18 13:58 silk tape Allergy miller skin Uncoded 02/25/18 13:58 steroid injection Allergy facial Uncoded 02/25/18 14:11 swelling Physical Exam Vitals: Vital Signs Temp Pulse Pulse Resp BP BP Pulse Ox 03/04/18 09:30 98 F 90 18 139/67 95 03/03/18 23:00 98.4 F 98 16 132/62 92 L 03/03/18 20:00 98.5 F 85 17 127/80 99 03/03/18 17:00 92 158/78 03/03/18 16:45 91 150/82 03/03/18 16:30 95 149/74 03/03/18 16:15 93 149/72 03/03/18 16:00 90 154/82 03/03/18 15:54 97.8 F 89 16 152/84 97 03/03/18 15:45 87 153/67 03/03/18 15:30 90 156/80 03/03/18 15:15 90 142/87 03/03/18 15:00 97.5 F L 89 16 152/84 97 03/03/18 14:45 89 16 151/71 96 03/03/18 14:15 92 16 151/76 97 03/03/18 13:45 94 16 131/71 96 03/03/18 13:31 90 16 137/65 95 03/03/18 13:17 92 16 143/66 94 L 03/03/18 13:01 107 H 16 163/78 99 03/03/18 12:45 87 16 131/62 99 03/03/18 12:34 98.4 F 96 16 146/65 97 Intake and Output 03/03/18 03/04/18 03/04/18 22:59 06:59 14:59 Intake Total 240 920 100 Output Total 1450 1500 Balance -1210 920 -1400 Intake: Intake, IV Titration 420 Amount Sodium Chloride 0.9% 1, 420 000 ml @ 75 mls/hr IV . [id number] [facility] Rx#:[id number] Oral 240 500 100 Output: Urine 1450 1500 Uretheral ([place]) 1500 Other: Voiding Method Indwelling Catheter Toilet # Voids 2 Weight 79.379 kg Head normocephalic Neck supple Lungs clear to auscultation bilaterally no wheezing or crackles Heart regular rate and rhythm S1-S2, no rub or gallop Abdomen is soft nontender nondistended positive bowel sounds no hepatosplenomegaly Extremities no edema Neuro alert and orientated to 3 Back: Dressing is clean dry and intact. Patient has a rash along her back that appears to be where may be bandage or dressing was placed. It starts near the buttocks and up to the middle of her back. Results CBC & Chem 7: 03/04/18 07:04 03/04/18 07:04 Labs: Abnormal Lab Results - Last 24 Hours (Table) 03/04/18 03/04/18 Range/Units 07:04 07:04 Neutrophils # 8.9 H (1.3-7.7) k/uL Lymphocytes # 0.9 L (1.0-4.8) k/uL Glucose 115 H (74-99) mg/dL Calcium 8.3 L (8.4-10.2) mg/dL Assessment and Plan Assessment: 1. Postop day 1 status post decompression of L4 to L5 and L5 to S1 for spinal stenosis with degenerative disc disease low back pain and lower extremity radiculopathy. Surgery completed with Dr. Pereira. Continue pain management per spinal surgeon. Continue physical therapy 2. Essential hypertension continue metoprolol and Norvasc. Blood pressure stable 3. GERD continue Pepcid 4. History of irritable bowel syndrome 5. Dermatitis on her back looks like a contact rash. We'll give 1 dose of Benadryl and monitor GI prophylaxis Pepcid and DVT prophylaxis SCDs Thank you for this consultation. We will continue to follow along during patient's hospitalization Time with Patient: Greater than 30 (Greater than 50% of the total time spent in counseling and coordination of care.I performed an examination of the patient and discussed their management with the physician [facility]. I have reviewed the Physician [facility]'s notes and agree with the documented findings and plan of care)
[2018-03-04] MEDS: diphenhydrAMINE 25 MG CAP ONE ×2 (11:02→15:39)
[2018-03-04] MEDS: PANTOPRAZOLE 40 MG TABLET PO SCH (18:33)
[2018-03-04] MEDS: ALPRAZolam 0.25 MG TAB PO PRN (20:31)
[2018-03-04] MEDS: FAMOTIDINE 20 MG TAB PO SCH (20:32)
[2018-03-05] MEDS: HYDROmorphone 2 MG TAB PO PRN ×2 (00:50→06:15)
[2018-03-05] MEDS: DIAZEPAM 5 MG TAB PO PRN ×3 (00:50→21:30)
[2018-03-05] MEDS: HYDROcodone/APAP 5-325MG 1 EACH TAB PO PRN (02:40)
[2018-03-05] MEDS: SODIUM CHLORIDE 0.9% 1,000 ML IV SCH ×2 (06:05→20:34)
[2018-03-05] MEDS: METOPROLOL TARTRATE 25 MG TAB PO SCH ×2 (06:15→17:11)
[2018-03-05] MEDS: AMLODIPINE 5 MG PO SCH (06:15)
[2018-03-05 07:36] LABS: Basophils % (A) 0 %; Eosinophils # (A) 0.1 k/uL (0-0.7); Eosinophils % (A) 1 %; HCT 38.5 % (34.0-46.0); HGB 13.1 gm/dL (11.4-16.0); Lymphocytes # (A) 1.5 k/uL (1.0-4.8); Lymphocytes % (A) 12 %; MCH 29.5 pg (25.0-35.0); MCHC 33.9 g/dL (31.0-37.0); MCV 86.9 fL (80.0-100.0); Mean Platelet Volume 6.7; Monocytes # (A) 0.6 k/uL (0-1.0); Monocytes % (A) 5 %; Neutrophils # (A) 10.5 k/uL (1.3-7.7); Neutrophils % (A) 82 %; Platelet Count 234 k/uL (150-450); RBC 4.43 m/uL (3.80-5.40); RDW 12.5 % (11.5-15.5); WBC 12.9 k/uL (3.8-10.6)
[2018-03-05 07:47] LABS: Anion Gap 10 mmol/L; Blood Urea Nitrogen 7 mg/dL (7-17); Calcium 8.7 mg/dL (8.4-10.2); Carbon Dioxide 28 mmol/L (22-30); Chloride 103 mmol/L (98-107); Glucose 101 mg/dL (74-99); Potassium 4.1 mmol/L (3.5-5.1); Sodium 141 mmol/L (137-145)
[2018-03-05] MEDS: ASPIRIN 81 MG PO SCH (08:06)
[2018-03-05] MEDS: BRIMONIDINE TARTRATE 0.2% DROPS 5 ML BTL RIGHT EYE SCH (08:06)
[2018-03-05] MEDS: SENNOSIDES-DOCUSATE SODIUM 1 EACH TAB PO SCH (08:06)
--- NOTE | 2018-03-05 08:33 | P.PN ---
Progress Note - Text Progress Note Date: 03/05/18 Orthopedic Spine Patient is a pleasant 62-year-old female who is seen and examined at the bedside following posterior lateral decompression and fusion performed Thursday. Patient continues to have significant difficulty with muscle spasms at the surgical sites and over the lumbar spine. She has some pain of the lumbar spine. She states her legs ache but she denies specific lower extremity radiculopathy. She has been able to ambulate to the restroom. Her [place] catheter has previously been discontinued. She is eating and voiding without difficulty. She has difficulty with prolonged sitting to increase back pain. She is seen laying on her side in bed today. She continues to receive Dilaudid , [place], and Valium for some control her symptoms does not feel her symptoms have been adequately controlled. We discussed the possibility of discharge to rehabilitation facility at the time of discharge she is unsure about her mobility and her family's ability to help her postsurgically. Currently does not complain of nausea, vomiting, fever, or chills. Physical Exam Lumbar Fusion: Status post surgical day number 2 Patient is awake, alert, and oriented 3 Vital signs stable Good chest excursion with deep inspiration and expiration Dorsiflexion, plantarflexion, and extensor hallucis longus positive sustained bilaterally No signs or symptoms of DVT; no calf pain; pneumatic cuffs not currently intact bilateral lower extremities Dressing is clean, dry, and intact; no erythema, purulence, or signs of infection Neurovascularly intact bilaterally lower extremities Assessment: Minimally invasive posterior lateral decompression and fusion with transforaminal lumbar interbody fusion at L4-5 and L5-S1 Back pain Lumbar muscle spasms Plan: 1. Ambulate as tolerated; continue to work with Physical Therapy to increase mobilization; patient may continue wearing LSO brace for comfort and support during increased activities and ambulation as needed 2. Continue pain control with IV and oral medications; we will plan to increase Irwin 5 mg/325 mg up to [place] 7.5 mg/325 mg 3. Dressing to remain intact with Telfa and Tegaderm 4. Medical management can continue to manage patient for patient's other medical issues 5. We will place consultation with case management to discuss the possibility of discharge to a rehabilitation facility or discharge home with home health care at the time of discharge 6. We will continue to follow the patient closely 7. Patient can follow-up with Jose Elias Kelley PA-C or Dr. Jono Pereira at [facility] in 2-3 weeks following discharge
[2018-03-05] MEDS: HYDROcodone/APAP 7.5-325MG 1 EACH TAB PO PRN ×3 (11:09→19:49)
--- NOTE | 2018-03-05 12:14 | P.PN ---
Subjective Progress Note Date: 03/05/18 This is a 62-year-old female, patient of Dr. Richardson. She has known past medical history of hypertension, irritable bowel syndrome, GERD and ocular hypertension. Patient also has a significant history of chronic back pain with spinal stenosis degenerative disc disease and lower extremity radiculopathy. She underwent decompression of L4 to L5 and L5 to S1 for her spinal stenosis. She is postop day #1. We will consulted for medical management. She is tolerated surgery well. Through the evening she had severe muscle spasms in her back. Patient was receiving Valium morphine and [place]. Orthopedics have added Dilaudid. Also applying heat to the area has improved some of her symptoms. Patient also has developed a rash on her back but appears to be may be related to a tape or bandage. She denies any itching. No blistering or hives. Patient denies any chest pain or shortness breath. Denies any nausea or vomiting. No bowel movement yet. Likely catheter was removed this morning. Patient has not voided yet. She has been up and ambulating with physical therapy. 03/05/2018 patient still complaining of back pain with muscle spasming. She reports having a rough night due to her pain. Spinal surgery is following. They have adjusted medications as of yesterday. Patient is being evaluated for possible ECF placement for rehab. Patient admits to having a lot of urinary frequency. She has had low-grade temps 100.1 and 100.7. White count has increased to 12.9. Urinalysis with culture has been ordered. The rash on her back has shown some improvement. She did receive 1 dose of Benadryl yesterday. Patient is passing gas no bowel movement yet. Denies any chest pain shortness of breath. Denies any nausea or vomiting. Denies any burning with urination Objective - Vital Signs Vital signs: Vital Signs Temp 98.2 F 03/05/18 07:50 Pulse 101 H 03/05/18 07:00 Resp 16 03/05/18 07:00 BP 117/72 03/05/18 07:00 Pulse Ox 96 03/05/18 07:00 Intake & Output 03/04/18 03/05/18 03/05/18 18:59 06:59 18:59 Intake Total 1300 1720 100 Output Total 1500 420 Balance -200 1300 100 Intake: Intake, IV Titration 600 Amount Sodium Chloride 0.9% 1, 600 000 ml @ 75 mls/hr IV . [id number] [facility] Rx#:[id number] Oral 700 1720 100 Output: Urine 1500 420 Uretheral ([place]) 1500 Other: Voiding Method Toilet Toilet Toilet # Voids 1 4 1 - Exam Head normocephalic Neck supple Lungs clear to auscultation bilaterally no wheezing or crackles Heart regular rate and rhythm S1-S2, no rub or gallop Abdomen is soft nontender nondistended positive bowel sounds no hepatosplenomegaly Extremities no edema Neuro alert and orientated to 3 Back: Dressing clean dry and intact. Rash along her back is decreased in redness. - Labs CBC & Chem 7: 03/05/18 06:23 03/05/18 06:23 Labs: Abnormal Lab Results - Last 24 Hours (Table) 03/05/18 03/05/18 Range/Units 06:23 06:23 WBC 12.9 H (3.8-10.6) k/uL Neutrophils # 10.5 H (1.3-7.7) k/uL Glucose 101 H (74-99) mg/dL Assessment and Plan Assessment: 1. Postop day 2 status post decompression of L4 to L5 and L5 to S1 for spinal stenosis with degenerative disc disease low back pain and lower extremity radiculopathy. Surgery completed with Dr. Pereira. Continue pain management per spinal surgeon. Continue physical therapy 2. Essential hypertension continue metoprolol and Norvasc. Blood pressure stable 3. GERD continue Pepcid 4. History of irritable bowel syndrome 5. Dermatitis on her back looks like a contact rash. Showing improvement 6. Leukocytosis with low-grade fevers. Check urinalysis with culture. Also encourage incentive spirometry use or possible atelectasis. Patient denies any cough GI prophylaxis Pepcid and DVT prophylaxis SCDs
[2018-03-05] MEDS: LACTATED RINGERS 1,000 ML IV SCH (12:19)
[2018-03-05 14:36] LABS: Appearance,Urine Clear (Clear); Bacteria,Urine Rare /hpf; Bilirubin,Urine Negative (Negative); Blood,Urine Small (Negative); Color,Urine Light Yellow; Glucose,Urine (UA) Negative (Negative); Ketones,Urine 1+ (Negative); Leukocyte Esterase,Urine Negative (Negative); Nitrite,Urine Negative (Negative); Protein,Urine Negative (Negative); RBC,Urine 3 /hpf (0-5); Specific Gravity,Urine 1.007 (1.001-1.035); Squamous Epithelial Cell,Urine 1 /hpf (0-4); Urobilinogen,Urine <2.0 mg/dL (<2.0); WBC,Urine <1 /hpf (0-5)
[2018-03-05] MEDS: PANTOPRAZOLE 40 MG TABLET PO SCH (17:12)
[2018-03-05] MEDS: FAMOTIDINE 20 MG TAB PO SCH (21:30)
[2018-03-05] MEDS: MAGNESIUM HYDROXIDE 2,400 MG/10 ML CUP PO PRN (21:30)
[2018-03-06] MEDS: HYDROmorphone 2 MG TAB PO PRN ×2 (00:22→20:54)
[2018-03-06] MEDS: HYDROcodone/APAP 7.5-325MG 1 EACH TAB PO PRN ×6 (01:20→22:50)
[2018-03-06] MEDS: DIAZEPAM 5 MG TAB PO PRN ×3 (04:30→19:44)
[2018-03-06 07:30] LABS: Basophils % (A) 0 %; Eosinophils # (A) 0.2 k/uL (0-0.7); Eosinophils % (A) 2 %; HCT 38.2 % (34.0-46.0); HGB 12.6 gm/dL (11.4-16.0); Lymphocytes # (A) 1.6 k/uL (1.0-4.8); Lymphocytes % (A) 19 %; MCH 28.7 pg (25.0-35.0); MCV 87.2 fL (80.0-100.0); Mean Platelet Volume 7.1; Monocytes # (A) 0.4 k/uL (0-1.0); Monocytes % (A) 5 %; Neutrophils # (A) 6.1 k/uL (1.3-7.7); Neutrophils % (A) 72 %; Platelet Count 254 k/uL (150-450); RBC 4.38 m/uL (3.80-5.40); RDW 12.5 % (11.5-15.5); WBC 8.4 k/uL (3.8-10.6)
[2018-03-06 07:52] LABS: Anion Gap 12 mmol/L; Blood Urea Nitrogen 11 mg/dL (7-17); Calcium 8.6 mg/dL (8.4-10.2); Carbon Dioxide 30 mmol/L (22-30); Chloride 101 mmol/L (98-107); Glucose 91 mg/dL (74-99); Potassium 3.4 mmol/L (3.5-5.1); Sodium 143 mmol/L (137-145)
[2018-03-06] MEDS: LACTATED RINGERS 1,000 ML IV SCH (07:52)
[2018-03-06] MEDS: SODIUM CHLORIDE 0.9% 1,000 ML IV SCH ×2 (08:49→22:27)
[2018-03-06] MEDS: ASPIRIN 81 MG PO SCH (08:55)
[2018-03-06] MEDS: AMLODIPINE 5 MG PO SCH (08:55)
[2018-03-06] MEDS: BRIMONIDINE TARTRATE 0.2% DROPS 5 ML BTL RIGHT EYE SCH (08:55)
[2018-03-06] MEDS: METOPROLOL TARTRATE 25 MG TAB PO SCH ×2 (08:56→17:26)
[2018-03-06] MEDS: SENNOSIDES-DOCUSATE SODIUM 1 EACH TAB PO SCH (08:57)
[2018-03-06] MEDS ORDERED: SENNOSIDES-DOCUSATE SODIUM 1 EACH TAB PO PRN (10:36)
--- NOTE | 2018-03-06 10:43 | P.PN ---
Progress Note - Text Progress Note Date: 03/06/18 Orthopedic Spine: Patient is a pleasant 62-year-old female who is seen and examined at the bedside following posterior lateral decompression and fusion performed Thursday. Since being seen and examined yesterday, patient states her symptoms have been better controlled since the change in her medications. She is experiencing less lumbar spasm this morning. He does continue to have pain at the lumbar spine. She states her pain is currently 5/10. She states her legs ache but she denies specific lower extremity radiculopathy. She has been able to ambulate to the restroom. Her [place] catheter has previously been discontinued. She is eating and voiding without difficulty. Continues to lay on her side without significant difficulty. She continues to receive Dilaudid, [place], and Valium for some control her symptoms and does feel her symptoms are better controlled today. She was seen by case management yesterday who was able to set up [facility] at the time of discharge. Patient does not wish to be discharged to rehabilitation facility. Patient does have some difficulty with chronic constipation and has not had a bowel movement since her admittance. She states she was previous he passing gas but is not currently. Her abdomen continues to be soft. She does have some discomfort in the inferior portion of the abdomen. She has been receiving Senokot and milk of magnesia. She is also receiving prune juice this morning. Currently does not complain of nausea, vomiting, fever, or chills. Physical Exam Lumbar Fusion: Status post surgical day number 3 Patient is awake, alert, and oriented 3 Vital signs stable Abdomen is soft nontender Good chest excursion with deep inspiration and expiration Dorsiflexion, plantarflexion, and extensor hallucis longus positive sustained bilaterally No signs or symptoms of DVT; no calf pain; pneumatic cuffs not currently intact bilateral lower extremities Dressing is clean, dry, and intact; no erythema, purulence, or signs of infection Some bruising over the lumbar spine around and below the incision sites Neurovascularly intact bilaterally lower extremities Assessment: Minimally invasive posterior lateral decompression and fusion with transforaminal lumbar interbody fusion at L4-5 and L5-S1 Back pain Lumbar muscle spasms Constipation Plan: 1. Ambulate as tolerated; continue to work with Physical Therapy to increase mobilization; patient may continue wearing LSO brace for comfort and support during increased activities and ambulation as needed 2. Continue pain control with oral medications; continue with oral Dilaudid, [place] 7.5 mg/325 mg, and Valium; will try to start weaning the patient off Dilaudid in preparation for discharge home over the next 1-2 days 3. We will increase Senokot-S to twice a day to help facilitate a bowel movement; patient may also continue taking milk of magnesia and drink prune juice 4. Dressing to remain intact with Telfa and Tegaderm 5. Medical management can continue to manage patient for patient's other medical issues 6. Patient has been seen by case management; patient will plan to be discharged home with [facility] 7. We will continue to follow the patient closely 8. Patient can follow-up with Jose Elias Kelley PA-C or Dr. Jono Pereira at [facility] in 2-3 weeks following discharge
[2018-03-06] MEDS ORDERED: POLYETHYLENE GLYCOL 3350 17 GM POWD.PACK PO STA (17:24)
--- NOTE | 2018-03-06 17:24 | P.PN ---
Subjective Progress Note Date: 03/06/18 This is a 62-year-old female, patient of Dr. Richardson. She has known past medical history of hypertension, irritable bowel syndrome, GERD and ocular hypertension. Patient also has a significant history of chronic back pain with spinal stenosis degenerative disc disease and lower extremity radiculopathy. She underwent decompression of L4 to L5 and L5 to S1 for her spinal stenosis. She is postop day #1. We will consulted for medical management. She is tolerated surgery well. Through the evening she had severe muscle spasms in her back. Patient was receiving Valium morphine and [place]. Orthopedics have added Dilaudid. Also applying heat to the area has improved some of her symptoms. Patient also has developed a rash on her back but appears to be may be related to a tape or bandage. She denies any itching. No blistering or hives. Patient denies any chest pain or shortness breath. Denies any nausea or vomiting. No bowel movement yet. Likely catheter was removed this morning. Patient has not voided yet. She has been up and ambulating with physical therapy. 03/05/2018 patient still complaining of back pain with muscle spasming. She reports having a rough night due to her pain. Spinal surgery is following. They have adjusted medications as of yesterday. Patient is being evaluated for possible ECF placement for rehab. Patient admits to having a lot of urinary frequency. She has had low-grade temps 100.1 and 100.7. White count has increased to 12.9. Urinalysis with culture has been ordered. The rash on her back has shown some improvement. She did receive 1 dose of Benadryl yesterday. Patient is passing gas no bowel movement yet. Denies any chest pain shortness of breath. Denies any nausea or vomiting. Denies any burning with urination Objective - Vital Signs Vital signs: Vital Signs Temp 98.0 F 03/06/18 14:16 Pulse 82 03/06/18 14:16 Resp 16 03/06/18 14:16 BP 116/67 03/06/18 14:16 Pulse Ox 98 03/06/18 14:16 Intake & Output 03/05/18 03/06/18 03/06/18 18:59 06:59 18:59 Intake Total 400 1420 Balance 400 1420 Intake: Oral 400 1420 Other: Voiding Method Toilet Toilet Toilet # Voids 2 3 3 - Exam Head normocephalic, and atraumatic Neck supple no JVD no goiter Lungs clear to auscultation bilaterally no wheezing or crackles Heart regular rate and rhythm S1-S2, no rub or gallop Abdomen is soft nontender nondistended positive bowel sounds no hepatosplenomegaly Extremities no edema no cyanosis or clubbing Neuro alert and orientated to 3 Back: Dressing clean dry and intact. Rash along her back is decreased in redness. - Labs CBC & Chem 7: 03/06/18 06:26 03/06/18 06:26 Labs: Abnormal Lab Results - Last 24 Hours (Table) 03/06/18 Range/Units 06:26 Potassium 3.4 L (3.5-5.1) mmol/L Microbiology - Last 24 Hours (Table) 03/05/18 13:41 Urine Culture - Preliminary Urine,Clean Catch Assessment and Plan Plan: 1. Postop day 2 status post decompression of L4 to L5 and L5 to S1 for spinal stenosis with degenerative disc disease low back pain and lower extremity radiculopathy. Surgery completed with Dr. Pereira. Continue pain management per spinal surgeon. Continue physical therapy 2. Essential hypertension continue metoprolol and Norvasc. Blood pressure stable 3. GERD continue Pepcid 4. History of irritable bowel syndrome 5. Dermatitis on her back looks like a contact rash. Showing improvement 6. Leukocytosis with low-grade fevers. Check urinalysis with culture. Also encourage incentive spirometry use or possible atelectasis. Patient denies any cough GI prophylaxis Pepcid and DVT prophylaxis SCDs Continue current management add MiraLAX will follow in a.m.
[2018-03-06] MEDS: PANTOPRAZOLE 40 MG TABLET PO SCH (17:26)
[2018-03-06] MEDS: FAMOTIDINE 20 MG TAB PO SCH (19:44)
[2018-03-07] MEDS: DIAZEPAM 5 MG TAB PO PRN ×3 (01:46→20:12)
[2018-03-07] MEDS: HYDROcodone/APAP 7.5-325MG 1 EACH TAB PO PRN ×5 (02:45→19:20)
[2018-03-07] MEDS: ALPRAZolam 0.25 MG TAB PO PRN (04:44)
[2018-03-07] MEDS: METOPROLOL TARTRATE 25 MG TAB PO SCH ×2 (06:06→17:40)
[2018-03-07] MEDS: AMLODIPINE 5 MG PO SCH (06:06)
[2018-03-07 07:19] LABS: Basophils % (A) 0 %; Eosinophils # (A) 0.2 k/uL (0-0.7); Eosinophils % (A) 4 %; HCT 34.3 % (34.0-46.0); HGB 11.5 gm/dL (11.4-16.0); Lymphocytes # (A) 1.1 k/uL (1.0-4.8); Lymphocytes % (A) 20 %; MCH 28.9 pg (25.0-35.0); MCHC 33.5 g/dL (31.0-37.0); MCV 86.1 fL (80.0-100.0); Mean Platelet Volume 6.9; Monocytes # (A) 0.4 k/uL (0-1.0); Monocytes % (A) 7 %; Neutrophils # (A) 3.6 k/uL (1.3-7.7); Neutrophils % (A) 65 %; Platelet Count 269 k/uL (150-450); RBC 3.98 m/uL (3.80-5.40); RDW 12.4 % (11.5-15.5); WBC 5.5 k/uL (3.8-10.6)
[2018-03-07 07:33] LABS: ALT 22 U/L (9-52); AST 25 U/L (14-36); Albumin 2.8 g/dL (3.5-5.0); Alkaline Phosphatase 63 U/L (38-126); Anion Gap 8 mmol/L; Blood Urea Nitrogen 8 mg/dL (7-17); Calcium 8.4 mg/dL (8.4-10.2); Carbon Dioxide 32 mmol/L (22-30); Chloride 103 mmol/L (98-107); Glucose 93 mg/dL (74-99); Potassium 3.8 mmol/L (3.5-5.1); Sodium 143 mmol/L (137-145); Total Bilirubin 0.3 mg/dL (0.2-1.3); Total Protein 5.2 g/dL (6.3-8.2)
[2018-03-07] MEDS: LACTATED RINGERS 1,000 ML IV SCH (07:58)
[2018-03-07] MEDS: ASPIRIN 81 MG PO SCH (09:07)
[2018-03-07] MEDS: BRIMONIDINE TARTRATE 0.2% DROPS 5 ML BTL RIGHT EYE SCH (09:07)
[2018-03-07] MEDS: SODIUM CHLORIDE 0.9% 1,000 ML IV SCH (09:11)
--- NOTE | 2018-03-07 11:12 | P.PN ---
Progress Note - Text Progress Note Date: 03/07/18 Patient is a pleasant 62-year-old female who is seen and examined at the bedside following posterior lateral decompression and fusion performed Thursday. Since being seen and examined yesterday, patient states her symptoms have continued to be better controlled since the change in her medications. She is experiencing less lumbar spasm this morning. He does continue to have pain at the lumbar spine. She has only taking Dilaudid once during the evening. She continues a [place] 7.5 mg/325 mg and Valium for control of her symptoms. She states her legs ache but she denies specific lower extremity radiculopathy. She has been able to ambulate to the restroom. Her [place] catheter has previously been discontinued. She is eating and voiding without difficulty. Today she is standing at the bedside without significant difficulty. She was seen by case management previously who was able to set up [facility] at the time of discharge. Patient does not wish to be discharged to rehabilitation facility. Patient does have some difficulty with chronic constipation and has not had a bowel movement since her admittance. She states she she is passing gas currently.. Her abdomen continues to be soft. She does have some discomfort in the inferior portion of the abdomen. She has been receiving Senokot, MiraLAX, prune juice and milk of magnesia. Currently does not complain of nausea, vomiting, fever, or chills. Physical Exam Lumbar Fusion: Status post surgical day number 4 Patient is awake, alert, and oriented 3 Vital signs stable Abdomen is soft nontender Good chest excursion with deep inspiration and expiration Dorsiflexion, plantarflexion, and extensor hallucis longus positive sustained bilaterally No signs or symptoms of DVT; no calf pain; pneumatic cuffs not currently intact bilateral lower extremities Dressing is clean, dry, and intact; no erythema, purulence, or signs of infection Some bruising over the lumbar spine around and below the incision sites Neurovascularly intact bilaterally lower extremities Assessment: Minimally invasive posterior lateral decompression and fusion with transforaminal lumbar interbody fusion at L4-5 and L5-S1 Back pain Lumbar muscle spasms Constipation Plan: 1. Continue to ambulate as tolerated; continue to work with Physical Therapy to increase mobilization; patient may continue wearing LSO brace for comfort and support during increased activities and ambulation as needed 2. Continue pain control with oral medications; continue with oral [place] 7.5 mg /325 mg and Valium; continue to weaning the patient off Dilaudid in preparation for discharge home over the next 1-2 days 3. We will continue with Senokot-S to twice a day, milk of magnesia, MiraLAX, and prune juice to help facilitate a bowel movement 4. Dressing to remain intact with Telfa and Tegaderm 5. Medical management can continue to manage patient for patient's other medical issues 6. Patient has been seen by case management; patient will plan to be discharged home with [facility] 7. We will continue to follow the patient closely 8. Patient can follow-up with Jose Elias Kelley PA-C or Dr. Jono Pereira at [facility] in 2-3 weeks following discharge
[2018-03-07] MEDS ORDERED: LACTULOSE 20 GM/30 ML CUP PO ONE (13:57)
--- NOTE | 2018-03-07 14:02 | P.PN ---
Subjective Progress Note Date: 03/07/18 This is a 62-year-old female, patient of Dr. Richardson. She has known past medical history of hypertension, irritable bowel syndrome, GERD and ocular hypertension. Patient also has a significant history of chronic back pain with spinal stenosis degenerative disc disease and lower extremity radiculopathy. She underwent decompression of L4 to L5 and L5 to S1 for her spinal stenosis. She is postop day #1. We will consulted for medical management. She is tolerated surgery well. Through the evening she had severe muscle spasms in her back. Patient was receiving Valium morphine and [place]. Orthopedics have added Dilaudid. Also applying heat to the area has improved some of her symptoms. Patient also has developed a rash on her back but appears to be may be related to a tape or bandage. She denies any itching. No blistering or hives. Patient denies any chest pain or shortness breath. Denies any nausea or vomiting. No bowel movement yet. Likely catheter was removed this morning. Patient has not voided yet. She has been up and ambulating with physical therapy. 03/05/2018 patient still complaining of back pain with muscle spasming. She reports having a rough night due to her pain. Spinal surgery is following. They have adjusted medications as of yesterday. Patient is being evaluated for possible ECF placement for rehab. Patient admits to having a lot of urinary frequency. She has had low-grade temps 100.1 and 100.7. White count has increased to 12.9. Urinalysis with culture has been ordered. The rash on her back has shown some improvement. She did receive 1 dose of Benadryl yesterday. Patient is passing gas no bowel movement yet. Denies any chest pain shortness of breath. Denies any nausea or vomiting. Denies any burning with urination On 03/07/2018 patient is alert and oriented in no apparent distress she had an episode of palpitation and chest discomfort earlier, stat EKG was done and revealed normal sinus rhythm, there was T-wave inversion in inferior leads, currently patient denies any symptoms, there is no chest pain and no palpitations, she was started on telemetry, serial troponin were ordered. Patient is also complaining of constipation since her surgery, lactulose will be given today. Objective - Vital Signs Vital signs: Vital Signs Temp 98.1 F 03/07/18 07:53 Pulse 98 03/07/18 13:20 Resp 16 03/07/18 07:53 BP 124/67 03/07/18 13:20 Pulse Ox 96 03/07/18 07:53 Intake & Output 03/06/18 03/07/18 03/07/18 18:59 06:59 18:59 Intake Total 350 Balance 350 Intake: Oral 350 Other: Voiding Method Toilet Toilet # Voids 3 3 - Exam Head normocephalic, and atraumatic Neck supple no JVD no goiter Lungs clear to auscultation bilaterally no wheezing or crackles Heart regular rate and rhythm S1-S2, no rub or gallop Abdomen is soft nontender nondistended positive bowel sounds no hepatosplenomegaly Extremities no edema no cyanosis or clubbing Neuro alert and orientated to 3 Back: Dressing clean dry and intact. Rash along her back is decreased in redness. - Labs CBC & Chem 7: 03/07/18 06:32 03/07/18 06:32 Labs: Abnormal Lab Results - Last 24 Hours (Table) 03/07/18 Range/Units 06:32 Carbon Dioxide 32 H (22-30) mmol/L Total Protein 5.2 L (6.3-8.2) g/dL Albumin 2.8 L (3.5-5.0) g/dL Microbiology - Last 24 Hours (Table) 03/05/18 13:41 Urine Culture - Final Urine,Clean Catch Assessment and Plan Plan: 1. Postop day 4 status post decompression of L4 to L5 and L5 to S1 for spinal stenosis with degenerative disc disease low back pain and lower extremity radiculopathy. Surgery completed with Dr. Pereira. Continue pain management per spinal surgeon. Continue physical therapy 2. Essential hypertension continue metoprolol and Norvasc. Blood pressure stable 3. GERD continue Pepcid 4. History of irritable bowel syndrome 5. Dermatitis on her back looks like a contact rash. Showing improvement 6. Leukocytosis with low-grade fevers. Check urinalysis with culture. Also encourage incentive spirometry use or possible atelectasis. Patient denies any cough GI prophylaxis Pepcid and DVT prophylaxis SCDs Continue current management add 1 dose of lactulose Will follow in a.m.
[2018-03-07] MEDS: PANTOPRAZOLE 40 MG TABLET PO SCH (17:40)
[2018-03-07] MEDS: FAMOTIDINE 20 MG TAB PO SCH (19:20)
[2018-03-08] MEDS: HYDROcodone/APAP 7.5-325MG 1 EACH TAB PO PRN ×3 (00:17→09:21)
[2018-03-08] MEDS: SODIUM CHLORIDE 0.9% 1,000 ML IV SCH ×2 (01:49→07:35)
[2018-03-08] MEDS: DIAZEPAM 5 MG TAB PO PRN ×2 (02:23→11:50)
[2018-03-08] MEDS: HYDROmorphone 2 MG TAB PO PRN (05:32)
[2018-03-08] MEDS: AMLODIPINE 5 MG PO SCH (05:33)
[2018-03-08] MEDS: METOPROLOL TARTRATE 25 MG TAB PO SCH (05:33)
[2018-03-08 07:00] VITALS: BP 103/64; PULSE 80; RESP 16; TEMP 98.4
[2018-03-08 07:27] LABS: Basophils % (A) 1 %; Eosinophils # (A) 0.2 k/uL (0-0.7); Eosinophils % (A) 3 %; HCT 36.7 % (34.0-46.0); HGB 11.6 gm/dL (11.4-16.0); Lymphocytes # (A) 0.9 k/uL (1.0-4.8); Lymphocytes % (A) 16 %; MCH 27.4 pg (25.0-35.0); MCHC 31.7 g/dL (31.0-37.0); MCV 86.3 fL (80.0-100.0); Mean Platelet Volume 7.1; Monocytes # (A) 0.4 k/uL (0-1.0); Monocytes % (A) 8 %; Neutrophils # (A) 3.9 k/uL (1.3-7.7); Neutrophils % (A) 70 %; Platelet Count 312 k/uL (150-450); RBC 4.25 m/uL (3.80-5.40); RDW 12.6 % (11.5-15.5); WBC 5.5 k/uL (3.8-10.6)
[2018-03-08] MEDS: LACTATED RINGERS 1,000 ML IV SCH (07:33)
[2018-03-08] MEDS: BRIMONIDINE TARTRATE 0.2% DROPS 5 ML BTL RIGHT EYE SCH (07:34)
[2018-03-08] MEDS: ASPIRIN 81 MG PO SCH (07:35)
[2018-03-08 07:39] LABS: ALT 32 U/L (9-52); AST 36 U/L (14-36); Albumin 3.1 g/dL (3.5-5.0); Alkaline Phosphatase 71 U/L (38-126); Anion Gap 11 mmol/L; Blood Urea Nitrogen 10 mg/dL (7-17); Calcium 8.8 mg/dL (8.4-10.2); Carbon Dioxide 30 mmol/L (22-30); Chloride 103 mmol/L (98-107); Glucose 105 mg/dL (74-99); Potassium 4.1 mmol/L (3.5-5.1); Sodium 144 mmol/L (137-145); Total Bilirubin 0.3 mg/dL (0.2-1.3); Total Protein 5.5 g/dL (6.3-8.2)
--- NOTE | 2018-03-08 08:59 | P.DS ---
Providers Date of admission: 03/03/18 06:35 Expected date of discharge: 03/08/18 Attending physician: Lisa Pereira Consults: 03/03/18 12:33 Consult Physician Routine Consulting Provider: Attila Salazar Consult Reason/Comments: Medical management Do you want consulting provider notified?: Yes Primary care physician: Apurva Richardson - Discharge Diagnosis(es) (1) Spinal stenosis at L4-L5 level Current Visit: Yes Status: Acute (2) Degeneration of L4-L5 intervertebral disc Current Visit: Yes Status: Acute (3) Lumbar facet arthropathy Current Visit: Yes Status: Acute (4) Facet arthropathy, lumbosacral Current Visit: Yes Status: Acute (5) Lumbosacral spinal stenosis Current Visit: Yes Status: Acute (6) DDD (degenerative disc disease), lumbosacral Current Visit: Yes Status: Acute (7) Low back pain Current Visit: Yes Status: Acute (8) Radiculopathy with lower extremity symptoms Current Visit: Yes Status: Acute (9) Constipation Current Visit: Yes Status: Acute Hospital Course: This is a pleasant 62-year-old female who presented with L4-5 and L5-S1 degenerative disc disease, facet arthrosis, and spinal canal stenosis with low back pain and lower extremity radiculopathy who failed outpatient conservative therapy. She was admitted for minimally invasive posterior lateral decompression and fusion with transforaminal lumbar interbody fusion at L4-5 and L5-S1. Patient had been progressing slowly postsurgically but has improved over the weekend. She's been able to increase her ambulation. She does continue to have some ongoing back pain and spasms but they have been better controlled. She does feel should be ready for discharge home today. She will be discharged home with home health care. She was able to have a large bowel movement yesterday. She has been doing with the assistance of a walker and states she has a walker at home. She's been eating and voiding without difficulty. Condition on day of discharge stable. Patient was cleared preoperatively for surgery by Dr. Richardson. Patient currently denies any nausea , vomiting, fever, or chills. Patient may shower Tegaderm dressing intact. Patient may remove Tegaderm dressing once she returns home and may shower without a dressing at that time. Patient should keep Steri-Strips intact and allow them to fall off naturally. Patient should refrain from driving until at least after their first follow-up appointment in the office. Patient should avoid excessive bending, lifting, and twisting; no lifting greater than 10 pounds. At discharge, patient will be given prescription for [place] 7.5 mg/325 mg 1-2 tabs every 6 hours as needed for pain dispense #90, Valium 5 mg 1 tab every 8 hours as needed for spasm dispense #90 and Senokot-S 1 tab twice per day as needed for constipation. Patient should discontinue Xanax and Ultram as previously prescribed while on the medications prescribed at discharge including [place] and Valium. Patient should avoid anti-inflammatories over the next 6 weeks. She may use a walker to aid in ambulation at home as needed. [employer] was attempted to be run on the patient discharge but [employer] was unable to process the request. Physical Exam on day of discharge: Status post surgical day number 5 Patient is awake, alert, and oriented 3 Vital signs stable Abdomen is soft nontender Good chest excursion with deep inspiration and expiration Dorsiflexion, plantarflexion, and extensor hallucis longus positive sustained bilaterally No signs or symptoms of DVT; no calf pain; pneumatic cuffs not currently intact bilateral lower extremities Dressing is clean, dry, and intact; no erythema, purulence, or signs of infection Some bruising over the lumbar spine around and below the incision sites Neurovascularly intact bilaterally lower extremities Procedures: Minimally invasive posterior lateral decompression and fusion with transforaminal lumbar interbody fusion at L4-5 and L5-S1. Patient Condition at Discharge: Stable Plan - Discharge Summary Discharge Rx Participant: No New Discharge Prescriptions: New Diazepam [Valium] 5 mg PO TID PRN #90 tab PRN Reason: Muscle Spasm HYDROcodone/APAP 7.5-325MG [[place] 7.5-325] 1 - 2 each PO Q6HR PRN #90 tab PRN Reason: Pain Sennosides-Docusate Sodium [Senokot-S] 1 tab PO BID PRN #60 tablet PRN Reason: Constipation No Action traMADol HCL [Ultram] 50 mg PO TID PRN PRN Reason: Pain ALPRAZolam [Xanax] 0.125 - 0.25 mg PO BID PRN PRN Reason: Anxiety Pantoprazole Sodium [Protonix] 40 mg PO DAILY@1700 Aspirin EC [Ecotrin Low Dose] 81 mg PO DAILY #30 tablet. Famotidine 40 mg PO HS Brimonidine Tartrate [[place]phagan P 0.2% Ophth Soln] 1 drops RIGHT EYE QAM amLODIPine [Norvasc] 5 mg PO DAILY@0600 Metoprolol Tartrate [Lopressor] 25 mg PO BID@0600,1800 Discharge Medication List ALPRAZolam [Xanax] 0.125 - 0.25 mg PO BID PRN 06/27/17 [History] Pantoprazole Sodium [Protonix] 40 mg PO DAILY@1700 06/27/17 [History] traMADol HCL [Ultram] 50 mg PO TID PRN 06/27/17 [History] Aspirin EC [Ecotrin Low Dose] 81 mg PO DAILY #30 tablet. 06/29/17 [Rx] Brimonidine Tartrate [[place] P 0.2% Ophth Soln] 1 drops RIGHT EYE QAM [History] Famotidine 40 mg PO HS 02/25/18 [History] Metoprolol Tartrate [Lopressor] 25 mg PO BID@0600,1800 02/25/18 [History] amLODIPine [Norvasc] 5 mg PO DAILY@0600 02/25/18 [History] Diazepam [Valium] 5 mg PO TID PRN #90 tab 03/08/18 [Rx] HYDROcodone/APAP 7.5-325MG [[place] 7.5-325] 1 - 2 each PO Q6HR PRN #90 tab [Rx] Sennosides-Docusate Sodium [Senokot-S] 1 tab PO BID PRN #60 tablet 03/08/18 [Rx] Follow up Appointment(s)/Referral(s): [facility], [NON-STAFF] - Apurva Richardson DO [Primary Care Provider] - 03/12/18 10:30 am (With Audrey SIMONS) Jose Elias Kelley PAC [PHYSICIAN ATHLETIC DIRECTOR] - 03/19/18 1:30 pm (Patient may follow-up with Jose Elias Kelley PA-C or Dr. Jono Pereira at [facility] in 2-3 weeks following discharge. ) Activity/Diet/Wound Care/Special Instructions: 1. Patient may shower with Tegaderm dressing intact. 2. Patient may remove Tegaderm dressing when she returns home and may shower without a dressing at that time. 3. Patient should keep Steri-Strips intact and allow them to fall off naturally. 4. Patient should refrain from driving until at least after their first follow- up appointment in the office. 5. Patient should avoid excessive bending, twisting, and lifting; no lifting greater than 10 pounds 6. Take medications as prescribed 7. Patient may use walker to aid in ambulation as needed 8. Do not soak in tub Discharge Disposition: HOME WITH HOME HEALTH SERVICES
--- NOTE | 2018-03-08 10:41 | P.PN ---
Subjective Progress Note Date: 03/08/18 This is a 62-year-old female, patient of Dr. Richardson. She has known past medical history of hypertension, irritable bowel syndrome, GERD and ocular hypertension. Patient also has a significant history of chronic back pain with spinal stenosis degenerative disc disease and lower extremity radiculopathy. She underwent decompression of L4 to L5 and L5 to S1 for her spinal stenosis. She is postop day #1. We will consulted for medical management. She is tolerated surgery well. Through the evening she had severe muscle spasms in her back. Patient was receiving Valium morphine and [place]. Orthopedics have added Dilaudid. Also applying heat to the area has improved some of her symptoms. Patient also has developed a rash on her back but appears to be may be related to a tape or bandage. She denies any itching. No blistering or hives. Patient denies any chest pain or shortness breath. Denies any nausea or vomiting. No bowel movement yet. Likely catheter was removed this morning. Patient has not voided yet. She has been up and ambulating with physical therapy. 03/05/2018 patient still complaining of back pain with muscle spasming. She reports having a rough night due to her pain. Spinal surgery is following. They have adjusted medications as of yesterday. Patient is being evaluated for possible ECF placement for rehab. Patient admits to having a lot of urinary frequency. She has had low-grade temps 100.1 and 100.7. White count has increased to 12.9. Urinalysis with culture has been ordered. The rash on her back has shown some improvement. She did receive 1 dose of Benadryl yesterday. Patient is passing gas no bowel movement yet. Denies any chest pain shortness of breath. Denies any nausea or vomiting. Denies any burning with urination 03/07/2018 patient is alert and oriented in no apparent distress she had an episode of palpitation and chest discomfort earlier, stat EKG was done and revealed normal sinus rhythm, there was T-wave inversion in inferior leads, currently patient denies any symptoms, there is no chest pain and no palpitations, she was started on telemetry, serial troponin were ordered. Patient is also complaining of constipation since her surgery, lactulose will be given today. 03/08/2018 patient's back pain is controlled. She is scheduled for discharge today. She denies any chest pain or shortness of breath. The heart palpitations she was feeling yesterday have resolved. Troponins were negative. Telemetry is currently showing a normal sinus rhythm. She did have an episode of sinus tach with a heart rate of 108 showing evidence also of some PACs. Patient reports having a bowel movement. Denies any burning with urination. Urinalysis negative during this admission Objective - Vital Signs Vital signs: Vital Signs Temp 98.4 F 03/08/18 07:00 Pulse 80 03/08/18 07:00 Resp 16 03/08/18 07:25 BP 103/64 03/08/18 07:00 Pulse Ox 95 03/08/18 07:00 Intake & Output 03/07/18 03/08/18 03/08/18 18:59 06:59 18:59 Other: Voiding Method Toilet Toilet # Voids 2 1 1 - Exam Head normocephalic Neck supple Lungs clear to auscultation bilaterally no wheezing or crackles Heart regular rate and rhythm S1-S2, no rub or gallop Abdomen is soft nontender nondistended positive bowel sounds no hepatosplenomegaly Extremities no edema Neuro alert and orientated to 3 Back some bruising noted underneath surgical bandage - Labs CBC & Chem 7: 03/08/18 06:32 03/08/18 06:32 Labs: Abnormal Lab Results - Last 24 Hours (Table) 03/08/18 03/08/18 Range/Units 06:32 06:32 Lymphocytes # 0.9 L (1.0-4.8) k/uL Glucose 105 H (74-99) mg/dL Total Protein 5.5 L (6.3-8.2) g/dL Albumin 3.1 L (3.5-5.0) g/dL Assessment and Plan Assessment: 1. Postop day 5 status post decompression of L4 to L5 and L5 to S1 for spinal stenosis with degenerative disc disease low back pain and lower extremity radiculopathy. Surgery completed with Dr. Pereira. Continue with current pain medication 2. Essential hypertension continue metoprolol and Norvasc. Blood pressure stable 3. GERD continue Pepcid 4. History of irritable bowel syndrome 5. Dermatitis on her back looks like a contact rash. Showing improvement 6. Leukocytosis with low-grade fevers. Possibly reactive from surgery. Urinalysis negative. White count has normalized. Patient is remained afebrile 7. Heart palpitations with evidence of sinus rhythm with PACs on EKG. Troponins negative. Telemetry monitoring showing no significant arrhythmia. Did show evidence of sinus rhythm with PACs. Dr. Salazar is recommending that patient follows up with her PCP to have further evaluation and possible stress test evaluation. Patient is currently having no symptoms and is chest pain- free. Patient is medically stable for discharge. Patient to follow-up with her PCP on 03/12/2018 I performed an examination of the patient and discussed their management with the physician Java Engineer. I have reviewed the Physician Java Engineer's notes and agree with the documented findings and plan of care
== END 2018-03-08 12:10 | disposition home health service (06) | DRG 455 ==
LOC: 2ORMAIN 06:35 → 3SUR 14:36
PROVIDERS: ADMIT Orthopaedic Surgery Orthopaedic Surgery of the Spine; ATTEND Orthopaedic Surgery Orthopaedic Surgery of the Spine
PROC: 4A11X4G Monitoring of Peripheral Nervous Electrical Activity, Intraoperative, External Approach (ICD-10-PCS; principal; 2018-03-03 08:30)
PROC: 0SG3071 Fusion of Lumbosacral Joint with Autologous Tissue Substitute, Posterior Approach, Posterior Column, Open Approach (ICD-10-PCS; principal; 2018-03-03 08:30)
PROC: 0SG0071 Fusion of Lumbar Vertebral Joint with Autologous Tissue Substitute, Posterior Approach, Posterior Column, Open Approach (ICD-10-PCS; principal; 2018-03-03 08:30)
PROC: 0SG00AJ Fusion of Lumbar Vertebral Joint with Interbody Fusion Device, Posterior Approach, Anterior Column, Open Approach (ICD-10-PCS; principal; 2018-03-03 08:30)
PROC: 0SG30AJ Fusion of Lumbosacral Joint with Interbody Fusion Device, Posterior Approach, Anterior Column, Open Approach (ICD-10-PCS; principal; 2018-03-03 08:30)
PROC: 07DS3ZZ Extraction of Vertebral Bone Marrow, Percutaneous Approach (ICD-10-PCS; principal; 2018-03-03 08:30)
PROC: 0ST20ZZ Resection of Lumbar Vertebral Disc, Open Approach (ICD-10-PCS; principal; 2018-03-03 08:30)
PROC: 30233N0 Transfusion of Autologous Red Blood Cells into Peripheral Vein, Percutaneous Approach (ICD-10-PCS; principal; 2018-03-03 08:30)
DX: M48.062 Spinal stenosis, lumbar region with neurogenic claudication (principal); M48.07 Spinal stenosis, lumbosacral region; M51.16 Intervertebral disc disorders with radiculopathy, lumbar region; M43.16 Spondylolisthesis, lumbar region; M47.817 Spondylosis without myelopathy or radiculopathy, lumbosacral region; M51.17 Intervertebral disc disorders with radiculopathy, lumbosacral region; J43.9 Emphysema, unspecified; G89.29 Other chronic pain; H40.052 Ocular hypertension, left eye; M62.838 Other muscle spasm; F41.9 Anxiety disorder, unspecified; K21.9 Gastro-esophageal reflux disease without esophagitis; M19.91 Primary osteoarthritis, unspecified site; K58.1 Irritable bowel syndrome with constipation; I10 Essential (primary) hypertension; D72.829 Elevated white blood cell count, unspecified; R35.0 Frequency of micturition; L25.8 Unspecified contact dermatitis due to other agents; R00.2 Palpitations; Z71.6 Tobacco abuse counseling; F17.210 Nicotine dependence, cigarettes, uncomplicated; Z79.82 Long term (current) use of aspirin; Z79.899 Other long term (current) drug therapy; Z90.710 Acquired absence of both cervix and uterus; Z97.0 Presence of artificial eye; Z90.49 Acquired absence of other specified parts of digestive tract; Z88.0 Allergy status to penicillin; Z88.8 Allergy status to other drugs, medicaments and biological substances; Z88.1 Allergy status to other antibiotic agents; Z91.048 Other nonmedicinal substance allergy status; Z91.041 Radiographic dye allergy status; Z83.3 Family history of diabetes mellitus; Z82.3 Family history of stroke; Z82.49 Family history of ischemic heart disease and other diseases of the circulatory system; Z84.1 Family history of disorders of kidney and ureter
CPT/HCPCS: 72100; 80048; 80053; 81001; 84484; 85025; 86850; 86891; 86900; 86901; 87086; 93005

== ENCOUNTER 2018-03-27 04:48 | Emergency (ER) | payer OTHER ==
--- NOTE | 2018-03-27 05:23 | ED ---
Extremity Problem HPI - General Source: patient, family Mode of arrival: wheelchair Limitations: no limitations - History of Present Illness MD Complaint: extremity pain, extremity swelling Onset/Timin -: hour(s) Location: bilateral lower extremity History of Same: No Quality: aching Consistency: constant Improves with: nothing Worsens with: walking Associated Symptoms: denies other symptoms <Samir Abraham - Last Filed: 03/27/18 05:20> <Kevin Mccoy - Last Filed: 03/27/18 08:08> - General Chief complaint: Extremity Problem,Nontraumatic Stated complaint: Foot swelling Time Seen by Provider: 03/27/18 05:02 - Related Data Home Medications Medication Instructions Recorded Confirmed ALPRAZolam [Xanax] 0.125 - 0.25 mg PO BID PRN 06/27/17 03/27/18 Pantoprazole Sodium [Protonix] 40 mg PO DAILY@1700 06/27/17 03/27/18 Brimonidine Tartrate [Alphagan P 1 drops RIGHT EYE QAM 02/25/18 03/27/18 0.2% Ophth Soln] Famotidine 40 mg PO HS 02/25/18 03/27/18 Metoprolol Tartrate [Lopressor] 25 mg PO BID@0600,1800 02/25/18 03/27/18 amLODIPine [Norvasc] 5 mg PO DAILY@0600 02/25/18 03/27/18 Previous Rx's Medication Instructions Recorded Aspirin EC [Ecotrin Low Dose] 81 mg PO DAILY #30 tablet. 06/29/17 Diazepam [Valium] 5 mg PO TID PRN #90 tab 03/08/18 HYDROcodone/APAP 7.5-325MG [[place] 1 - 2 each PO Q6HR PRN #90 tab 03/08/18 7.5-325] Sennosides-Docusate Sodium 1 tab PO BID PRN #60 tablet 03/08/18 [Senokot-S] Allergies Allergy/AdvReac Type Severity Reaction Status Date / Time adhesive tape Allergy miller skin Verified 03/27/18 04:57 erythromycin base Allergy Nausea & Verified 03/27/18 04:57 Vomiting Iodinated Contrast- Oral and Allergy Swelling Verified 03/27/18 04:57 IV Dye Iodine and Iodide Containing Allergy Swelling Verified 03/27/18 04:57 Produc Penicillins Allergy Unknown Verified 03/27/18 04:57 prednisone Allergy facial Verified 03/27/18 04:57 swelling contrast dye Allergy Swelling Uncoded 03/27/18 04:57 silk tape Allergy miller skin Uncoded 03/27/18 04:57 steroid injection Allergy facial Uncoded 03/27/18 04:57 swelling Review of Systems ROS Other: All systems not noted in ROS Statement are negative. Constitutional: Denies: fever, chills Respiratory: Denies: cough, dyspnea, hemoptysis Cardiovascular: Reports: edema. Denies: chest pain, palpitations, dyspnea on exertion, orthopnea, syncope Gastrointestinal: Denies: abdominal pain, nausea, vomiting Genitourinary: Denies: dysuria Musculoskeletal: Denies: back pain Skin: Denies: rash Neurological: Denies: headache, weakness, numbness <Samir Abraham - Last Filed: 03/27/18 05:20> ROS Other: All systems not noted in ROS Statement are negative. <Kevin Mccoy - Last Filed: 03/27/18 08:08> ROS Statement: Those systems with pertinent positive or pertinent negative responses have been documented in the HPI. Past Medical History Past Medical History: Eye Disorder, GERD/Reflux, Hypertension, Osteoarthritis ( OA) Additional Past Medical History / Comment(s): back problems and pain, left eye prosthetic eye, inactive gastritis,SOB,constipation,IBS,hemorrhoids,hypoglycemia History of Any Multi-Drug Resistant Organisms: None Reported Past Surgical History: Back Surgery, Cholecystectomy, Hysterectomy, Orthopedic Surgery Additional Past Surgical History / Comment(s): eye surgery, prothetic left eye, right shoulder ligament repair Past Anesthesia/Blood Transfusion Reactions: No Reported Reaction Past Psychological History: Anxiety Smoking Status: Former smoker Past Alcohol Use History: None Reported Past Drug Use History: None Reported - Past Family History Mother Family Medical History: Congestive Heart Failure (CHF), Myocardial Infarction ( [place]), Renal Disease Father Family Medical History: CVA/TIA, Diabetes Mellitus <Samir Abraham - Last Filed: 03/27/18 05:20> General Exam Limitations: no limitations General appearance: alert, in no apparent distress Eye exam: Present: normal appearance. Absent: scleral icterus, conjunctival injection Respiratory exam: Present: normal lung sounds bilaterally. Absent: respiratory distress, wheezes, rales, rhonchi, stridor Cardiovascular Exam: Present: regular rate, normal rhythm, normal heart sounds. Absent: systolic murmur, diastolic murmur, rubs, gallop GI/Abdominal exam: Present: soft. Absent: distended, tenderness, guarding, rebound Extremities exam: Present: normal inspection, normal capillary refill, pedal edema (Bilateral trace edema at the ankles), other (No palpable cord. No Homans sign). Absent: calf tenderness Back exam: Present: normal inspection, other (Surgical incisions are healing well with no erythema warmth or drainage). Absent: CVA tenderness (R), CVA tenderness (L) Neurological exam: Present: alert. Absent: motor sensory deficit Skin exam: Present: warm, dry, intact, normal color. Absent: rash <Samir Abraham - Last Filed: 03/27/18 05:20> Vital Signs 03/27/18 03/27/18 04:53 07:05 Temperature 97.6 F Pulse Rate 74 82 Respiratory 20 18 Rate Blood Pressure 143/73 150/67 O2 Sat by Pulse 97 97 Oximetry Medical Decision Making <Samir Abraham - Last Filed: 03/27/18 05:20> - Lab Data Result diagrams: 03/27/18 05:31 03/27/18 05:31 - Radiology Data Radiology results: report reviewed (Bilateral lower extremity ultrasound negative for DVT.) <Kevin Mccoy - Last Filed: 03/27/18 08:08> - Medical Decision Making Patient reevaluated and resting comfortably in bed. Patient is a couple of weeks postop from back surgery. Patient only has mild edema near the ankles. No chest pain or dyspnea. Patient and family updated on results and need for follow-up. (Kevin Mccoy) - Lab Data Lab Results 03/27/18 03/27/18 03/27/18 Range/Units 05:31 05:31 05:31 WBC 4.4 (3.8-10.6) k/uL RBC 4.43 (3.80-5.40) m/uL Hgb 12.6 (11.4-16.0) gm/dL Hct 37.7 (34.0-46.0) % MCV 84.9 (80.0-100.0) fL MCH 28.4 (25.0-35.0) pg MCHC 33.5 (31.0-37.0) g/dL RDW 12.6 (11.5-15.5) % Plt Count 319 (150-450) k/uL Neutrophils % 45 % Lymphocytes % 37 % Monocytes % 7 % Eosinophils % 7 % Basophils % 1 % Neutrophils # 2.0 (1.3-7.7) k/uL Lymphocytes # 1.6 (1.0-4.8) k/uL Monocytes # 0.3 (0-1.0) k/uL Eosinophils # 0.3 (0-0.7) k/uL Basophils # 0.0 (0-0.2) k/uL D-Dimer 1.90 H (<0.60) mg/L FEU Sodium 143 (137-145) mmol/L Potassium 4.1 (3.5-5.1) mmol/L Chloride 104 (98-107) mmol/L Carbon Dioxide 28 (22-30) mmol/L Anion Gap 11 mmol/L BUN 15 (7-17) mg/dL Creatinine 0.70 (0.52-1.04) mg/dL Est GFR (CKD-EPI)AfAm >90 (>60 ml/min/1.73 sqM) Est GFR (CKD-EPI)NonAf >90 (>60 ml/min/1.73 sqM) Glucose 101 H (74-99) mg/dL Calcium 9.1 (8.4-10.2) mg/dL Total Bilirubin 0.1 L (0.2-1.3) mg/dL AST 26 (14-36) U/L ALT 28 (9-52) U/L Alkaline Phosphatase 68 (38-126) U/L NT-Pro-B Natriuret Pep pg/mL Total Protein 5.9 L (6.3-8.2) g/dL Albumin 3.5 (3.5-5.0) g/dL 03/27/18 Range/Units 05:31 WBC (3.8-10.6) k/uL RBC (3.80-5.40) m/uL Hgb (11.4-16.0) gm/dL Hct (34.0-46.0) % MCV (80.0-100.0) fL MCH (25.0-35.0) pg MCHC (31.0-37.0) g/dL RDW (11.5-15.5) % Plt Count (150-450) k/uL Neutrophils % % Lymphocytes % % Monocytes % % Eosinophils % % Basophils % % Neutrophils # (1.3-7.7) k/uL Lymphocytes # (1.0-4.8) k/uL Monocytes # (0-1.0) k/uL Eosinophils # (0-0.7) k/uL Basophils # (0-0.2) k/uL D-Dimer (<0.60) mg/L FEU Sodium (137-145) mmol/L Potassium (3.5-5.1) mmol/L Chloride (98-107) mmol/L Carbon Dioxide (22-30) mmol/L Anion Gap mmol/L BUN (7-17) mg/dL Creatinine (0.52-1.04) mg/dL Est GFR (CKD-EPI)AfAm (>60 ml/min/1.73 sqM) Est GFR (CKD-EPI)NonAf (>60 ml/min/1.73 sqM) Glucose (74-99) mg/dL Calcium (8.4-10.2) mg/dL Total Bilirubin (0.2-1.3) mg/dL AST (14-36) U/L ALT (9-52) U/L Alkaline Phosphatase (38-126) U/L NT-Pro-B Natriuret Pep 87 pg/mL Total Protein (6.3-8.2) g/dL Albumin (3.5-5.0) g/dL Disposition <Samir Abraham - Last Filed: 03/27/18 05:20> Is patient prescribed a controlled substance at d/c from ED?: No Time of Disposition: 08:08 <Kevin Mccoy - Last Filed: 03/27/18 08:08> Clinical Impression: Leg edema Disposition: HOME SELF-CARE Condition: Stable Instructions: Leg Edema (ED) Additional Instructions: Please follow-up with primary care physician in the next couple days for recheck. Return for chest pain or difficulty in breathing, fevers, calf pain, worsening swelling, worsening symptoms or other concerns. Referrals: Apurva Richardson DO [Primary Care Provider] - 1-2 days
[2018-03-27 05:43] LABS: Basophils % (A) 1 %; Eosinophils # (A) 0.3 k/uL (0-0.7); Eosinophils % (A) 7 %; HCT 37.7 % (34.0-46.0); HGB 12.6 gm/dL (11.4-16.0); Lymphocytes # (A) 1.6 k/uL (1.0-4.8); Lymphocytes % (A) 37 %; MCH 28.4 pg (25.0-35.0); MCHC 33.5 g/dL (31.0-37.0); MCV 84.9 fL (80.0-100.0); Mean Platelet Volume 7.3; Monocytes # (A) 0.3 k/uL (0-1.0); Monocytes % (A) 7 %; Neutrophils % (A) 45 %; Platelet Count 319 k/uL (150-450); RBC 4.43 m/uL (3.80-5.40); RDW 12.6 % (11.5-15.5); WBC 4.4 k/uL (3.8-10.6)
[2018-03-27 05:53] LABS: ALT 28 U/L (9-52); AST 26 U/L (14-36); Albumin 3.5 g/dL (3.5-5.0); Alkaline Phosphatase 68 U/L (38-126); Anion Gap 11 mmol/L; Blood Urea Nitrogen 15 mg/dL (7-17); Calcium 9.1 mg/dL (8.4-10.2); Carbon Dioxide 28 mmol/L (22-30); Chloride 104 mmol/L (98-107); Glucose 101 mg/dL (74-99); Potassium 4.1 mmol/L (3.5-5.1); Sodium 143 mmol/L (137-145); Total Bilirubin 0.1 mg/dL (0.2-1.3); Total Protein 5.9 g/dL (6.3-8.2)
[2018-03-27] MEDS ORDERED: ENOXAPARIN 80 MG/0.8 ML SYRINGE SQ STA (05:59)
[2018-03-27 07:06] VITALS: RESP 18
--- NOTE | 2018-03-27 07:58 | US ---
EXAMINATION TYPE: US venous doppler duplex LE DATE OF EXAM: 03/27/2018 7:43 AM COMPARISON: NONE CLINICAL HISTORY: Pain. Pt states bilateral feet swelling s/p lumbar surgery SIDE PERFORMED: Bilateral TECHNIQUE: The lower extremity deep venous system is examined utilizing real time linear array sonog mohsen with graded compression, doppler sonography and color-flow sonography. VESSELS IMAGED: External Iliac Vein (EIV) Common Femoral Vein Deep Femoral Vein Greater Saphenous Vein * Femoral Vein Popliteal Vein Small Saphenous Vein * Proximal Calf Veins (* superficial vessels) Difficult exam, pt scanned lying on her side due to recent back surgery Right Leg: Negative for DVT Left Leg: Negative for DVT Grayscale, color doppler, spectral doppler imaging performed of the deep veins of the lower extremiti es. There is normal flow, compressibility, vascular waveforms. IMPRESSION: No sonographic evidence of deep venous thrombosis within the bilateral lower extremities.
[2018-03-27 08:43] VITALS: BP 147/72; PULSE 88; TEMP 97.9
== END 2018-03-27 08:43 | disposition home or self-care (01) ==
LOC: EC 04:48
DX: R60.0 Localized edema (principal); H57.9 Unspecified disorder of eye and adnexa; K21.9 Gastro-esophageal reflux disease without esophagitis; I10 Essential (primary) hypertension; Z97.0 Presence of artificial eye; Z98.890 Other specified postprocedural states; Z88.0 Allergy status to penicillin; Z88.1 Allergy status to other antibiotic agents; Z88.8 Allergy status to other drugs, medicaments and biological substances; Z91.040 Latex allergy status; Z91.041 Radiographic dye allergy status; Z91.048 Other nonmedicinal substance allergy status; Z79.899 Other long term (current) drug therapy; Z87.891 Personal history of nicotine dependence
CPT/HCPCS: 99284; 96372; 36415; 85379; 83880; 80053; 85025; 93970; J1650

== ENCOUNTER 2018-03-30 16:49 | Emergency (ER) | payer OTHER ==
[2018-03-30 17:15] VITALS: RESP 18
[2018-03-30] MEDS ORDERED: SODIUM CHLORIDE 0.9% 1,000 ML IV STA ×2 (17:20)
[2018-03-30] MEDS ORDERED: RX INFO: IV CONTRAST WAS GIVEN 1 EACH MISC MISCELLANE PRN (17:20)
[2018-03-30] MEDS ORDERED: methylPREDNISolone SOD SUCCI 125 MG/2 ML VIAL IV STA (17:21)
[2018-03-30] MEDS ORDERED: FAMOTIDINE 20 MG/2 ML VIAL IV STA (17:21)
[2018-03-30] MEDS ORDERED: diphenhydrAMINE 50 MG/ML 1 ML VIAL IVP STA (17:21)
[2018-03-30 17:40] LABS: Basophils % (A) 1 %; Eosinophils # (A) 0.3 k/uL (0-0.7); Eosinophils % (A) 4 %; HCT 39.4 % (34.0-46.0); HGB 13.4 gm/dL (11.4-16.0); Lymphocytes # (A) 1.4 k/uL (1.0-4.8); Lymphocytes % (A) 24 %; MCH 29.1 pg (25.0-35.0); MCHC 34.2 g/dL (31.0-37.0); MCV 85.2 fL (80.0-100.0); Mean Platelet Volume 6.3; Monocytes # (A) 0.3 k/uL (0-1.0); Monocytes % (A) 6 %; Neutrophils # (A) 3.7 k/uL (1.3-7.7); Neutrophils % (A) 63 %; Platelet Count 309 k/uL (150-450); RBC 4.62 m/uL (3.80-5.40); RDW 13.1 % (11.5-15.5); WBC 5.9 k/uL (3.8-10.6)
[2018-03-30 17:53] LABS: Partial Thromboplastin Time 22.9 sec (22.0-30.0); Prothrombin Time 9.9 sec (9.0-12.0)
[2018-03-30 17:56] LABS: ALT 35 U/L (9-52); AST 40 U/L (14-36); Alkaline Phosphatase 70 U/L (38-126); Anion Gap 12 mmol/L; Blood Urea Nitrogen 12 mg/dL (7-17); Calcium 9.1 mg/dL (8.4-10.2); Carbon Dioxide 26 mmol/L (22-30); Chloride 105 mmol/L (98-107); Creatine Kinase 74 U/L (30-135); Glucose 103 mg/dL (74-99); Magnesium 1.8 mg/dL (1.6-2.3); Potassium 4.1 mmol/L (3.5-5.1); Sodium 143 mmol/L (137-145); Total Bilirubin 0.4 mg/dL (0.2-1.3); Total Protein 6.5 g/dL (6.3-8.2)
--- NOTE | 2018-03-30 17:58 | ED ---
General Adult HPI - General Chief complaint: Shortness of Breath Stated complaint: pulmonary embolism Time Seen by Provider: 03/30/18 17:18 Source: patient, RN notes reviewed, old records reviewed Mode of arrival: wheelchair Limitations: no limitations - History of Present Illness Initial comments: This is a 62-year-old female to the ER for evaluation today. Patient's brought him percent in by her family doctor for evaluation regards to shortness of breath. Fatigue, patient had recent surgery back surgery and since has not been feeling herself not feeling well. Patient was seen in the ER 3 days ago for rule out DVT, patient sent ER today for evaluation and rule out PE. She denies chest pain. Patient doesn't contrast ALLERGY//presents to the ER in 7 outpatient basis. No fevers cough or congestion, patient is no bowel pain no back pain or no other issues. - Related Data Home Medications Medication Instructions Recorded Confirmed ALPRAZolam [Xanax] 0.125 - 0.25 mg PO BID PRN 06/27/17 03/30/18 Pantoprazole Sodium [Protonix] 40 mg PO DAILY@1700 06/27/17 03/30/18 Brimonidine Tartrate [Alphagan P 1 drops RIGHT EYE QAM 02/25/18 03/30/18 0.2% Ophth Soln] Metoprolol Tartrate [Lopressor] 25 mg PO BID@0600,1800 02/25/18 03/30/18 amLODIPine [Norvasc] 5 mg PO DAILY@0600 02/25/18 03/30/18 hydrOXYzine PAMOATE [Vistaril] 25 mg PO TID PRN 03/30/18 03/30/18 Previous Rx's Medication Instructions Recorded Aspirin EC [Ecotrin Low Dose] 81 mg PO DAILY #30 tablet. 06/29/17 Diazepam [Valium] 5 mg PO TID PRN #90 tab 03/08/18 HYDROcodone/APAP 7.5-325MG [[place] 1 - 2 each PO Q6HR PRN #90 tab 03/08/18 7.5-325] Sennosides-Docusate Sodium 1 tab PO BID PRN #60 tablet 03/08/18 [Senokot-S] Allergies Allergy/AdvReac Type Severity Reaction Status Date / Time adhesive tape Allergy miller skin Verified 03/30/18 18:18 erythromycin base Allergy Nausea & Verified 03/30/18 18:18 Vomiting Iodinated Contrast- Oral and Allergy Swelling Verified 03/30/18 18:18 IV Dye Iodine and Iodide Containing Allergy Swelling Verified 03/30/18 18:18 Produc Penicillins Allergy Unknown Verified 03/30/18 18:18 prednisone Allergy facial Verified 03/30/18 18:18 swelling contrast dye Allergy Swelling Uncoded 03/30/18 17:15 silk tape Allergy miller skin Uncoded 03/30/18 17:15 steroid injection Allergy facial Uncoded 03/30/18 17:15 swelling Review of Systems ROS Statement: Those systems with pertinent positive or pertinent negative responses have been documented in the HPI. ROS Other: All systems not noted in ROS Statement are negative. Past Medical History Past Medical History: Eye Disorder, GERD/Reflux, Hypertension, Osteoarthritis ( OA) Additional Past Medical History / Comment(s): back problems and pain, left eye prosthetic eye, inactive gastritis,SOB,constipation,IBS,hemorrhoids,hypoglycemia History of Any Multi-Drug Resistant Organisms: None Reported Past Surgical History: Back Surgery, Cholecystectomy, Hysterectomy, Orthopedic Surgery Additional Past Surgical History / Comment(s): eye surgery, prothetic left eye, right shoulder ligament repair Past Anesthesia/Blood Transfusion Reactions: No Reported Reaction Past Psychological History: Anxiety Smoking Status: Former smoker Past Alcohol Use History: None Reported Past Drug Use History: None Reported - Past Family History Mother Family Medical History: Congestive Heart Failure (CHF), Myocardial Infarction ( [place]), Renal Disease Father Family Medical History: CVA/TIA, Diabetes Mellitus General Exam Limitations: no limitations General appearance: alert, in no apparent distress Head exam: Present: atraumatic, normocephalic, normal inspection Eye exam: Present: normal appearance, PERRL, EOMI. Absent: scleral icterus, conjunctival injection, periorbital swelling ENT exam: Present: normal exam, mucous membranes moist Neck exam: Present: normal inspection. Absent: tenderness, meningismus, lymphadenopathy Respiratory exam: Present: normal lung sounds bilaterally. Absent: respiratory distress, wheezes, rales, rhonchi, stridor Cardiovascular Exam: Present: regular rate, normal rhythm, normal heart sounds. Absent: systolic murmur, diastolic murmur, rubs, gallop, clicks GI/Abdominal exam: Present: soft, normal bowel sounds. Absent: distended, tenderness, guarding, rebound, rigid Extremities exam: Present: normal inspection, full ROM, normal capillary refill. Absent: tenderness, pedal edema, joint swelling, calf tenderness Back exam: Present: normal inspection Neurological exam: Present: alert, oriented X3, CN II-XII intact Psychiatric exam: Present: normal affect, normal mood Skin exam: Present: warm, dry, intact, normal color. Absent: rash Course Vital Signs 03/30/18 03/30/18 17:12 18:35 Temperature 98.0 F Pulse Rate 77 86 Respiratory 18 18 Rate Blood Pressure 133/60 142/63 O2 Sat by Pulse 99 99 Oximetry - Reevaluation(s) Reevaluation #1: 03/30/18 20:00 Medical record, prior ER visit is reviewed EKG Findings - EKG Comments: EKG Findings:: EKG shows normal sinus rhythm rate of 84, MO 164, QRS 80, QTC 467 Medical Decision Making - Medical Decision Making 62 female the ER with nonspecific symptoms, patient has negative CTA for PE, will follow-up with karate black belt on outpatient basis - Lab Data Result diagrams: 03/30/18 17:30 03/30/18 17:30 Lab Results 03/30/18 03/30/18 03/30/18 Range/Units 17:30 17:30 17:30 WBC 5.9 (3.8-10.6) k/uL RBC 4.62 (3.80-5.40) m/uL Hgb 13.4 (11.4-16.0) gm/dL Hct 39.4 (34.0-46.0) % MCV 85.2 (80.0-100.0) fL MCH 29.1 (25.0-35.0) pg MCHC 34.2 (31.0-37.0) g/dL RDW 13.1 (11.5-15.5) % Plt Count 309 (150-450) k/uL Neutrophils % 63 % Lymphocytes % 24 % Monocytes % 6 % Eosinophils % 4 % Basophils % 1 % Neutrophils # 3.7 (1.3-7.7) k/uL Lymphocytes # 1.4 (1.0-4.8) k/uL Monocytes # 0.3 (0-1.0) k/uL Eosinophils # 0.3 (0-0.7) k/uL Basophils # 0.0 (0-0.2) k/uL PT (9.0-12.0) sec INR (<1.2) APTT (22.0-30.0) sec D-Dimer (<0.60) mg/L FEU Sodium 143 (137-145) mmol/L Potassium 4.1 (3.5-5.1) mmol/L Chloride 105 (98-107) mmol/L Carbon Dioxide 26 (22-30) mmol/L Anion Gap 12 mmol/L BUN 12 (7-17) mg/dL Creatinine 0.70 (0.52-1.04) mg/dL Est GFR (CKD-EPI)AfAm >90 (>60 ml/min/1.73 sqM) Est GFR (CKD-EPI)NonAf >90 (>60 ml/min/1.73 sqM) Glucose 103 H (74-99) mg/dL Calcium 9.1 (8.4-10.2) mg/dL Phosphorus 5.0 H (2.5-4.5) mg/dL Magnesium 1.8 (1.6-2.3) mg/dL Total Bilirubin 0.4 (0.2-1.3) mg/dL AST 40 H (14-36) U/L ALT 35 (9-52) U/L Alkaline Phosphatase 70 (38-126) U/L Total Creatine Kinase 74 (30-135) U/L CK-MB (CK-2) 0.4 (0.0-2.4) ng/mL CK-MB (CK-2) Rel Index 0.5 Troponin I <0.012 (0.000-0.034) ng/mL Total Protein 6.5 (6.3-8.2) g/dL Albumin 4.0 (3.5-5.0) g/dL 03/30/18 Range/Units 17:30 WBC (3.8-10.6) k/uL RBC (3.80-5.40) m/uL Hgb (11.4-16.0) gm/dL Hct (34.0-46.0) % MCV (80.0-100.0) fL MCH (25.0-35.0) pg MCHC (31.0-37.0) g/dL RDW (11.5-15.5) % Plt Count (150-450) k/uL Neutrophils % % Lymphocytes % % Monocytes % % Eosinophils % % Basophils % % Neutrophils # (1.3-7.7) k/uL Lymphocytes # (1.0-4.8) k/uL Monocytes # (0-1.0) k/uL Eosinophils # (0-0.7) k/uL Basophils # (0-0.2) k/uL PT 9.9 (9.0-12.0) sec INR 1.0 (<1.2) APTT 22.9 (22.0-30.0) sec D-Dimer 1.46 H (<0.60) mg/L FEU Sodium (137-145) mmol/L Potassium (3.5-5.1) mmol/L Chloride (98-107) mmol/L Carbon Dioxide (22-30) mmol/L Anion Gap mmol/L BUN (7-17) mg/dL Creatinine (0.52-1.04) mg/dL Est GFR (CKD-EPI)AfAm (>60 ml/min/1.73 sqM) Est GFR (CKD-EPI)NonAf (>60 ml/min/1.73 sqM) Glucose (74-99) mg/dL Calcium (8.4-10.2) mg/dL Phosphorus (2.5-4.5) mg/dL Magnesium (1.6-2.3) mg/dL Total Bilirubin (0.2-1.3) mg/dL AST (14-36) U/L ALT (9-52) U/L Alkaline Phosphatase (38-126) U/L Total Creatine Kinase (30-135) U/L CK-MB (CK-2) (0.0-2.4) ng/mL CK-MB (CK-2) Rel Index Troponin I (0.000-0.034) ng/mL Total Protein (6.3-8.2) g/dL Albumin (3.5-5.0) g/dL - Radiology Data Radiology results: report reviewed (CTA negative PE), image reviewed Disposition Clinical Impression: Leg edema, Low back pain, Atypical chest pain Disposition: HOME SELF-CARE Condition: Undetermined Is patient prescribed a controlled substance at d/c from ED?: No Referrals: Apurva Richardson DO [Primary Care Provider] - 1-2 days
[2018-03-30 17:59] LABS: D-Dimer 1.46 mg/L FEU (<0.60)
[2018-03-30 18:08] LABS: Creatine Kinase MB 0.4 ng/mL (0.0-2.4); Troponin I <0.012 ng/mL (0.000-0.034)
--- NOTE | 2018-03-30 19:44 | CT ---
EXAMINATION TYPE: CT angio chest DATE OF EXAM: 03/30/2018 COMPARISON: NONE HISTORY: Elevated d-dimer. CT DLP: 622 mGycm Automated exposure control for dose reduction was used. CONTRAST: CTA scan of the thorax is performed with IV Contrast, patient injected with 100 mL of Isovue 370, pul monary embolism protocol. MIP images are created and reviewed. 3D reconstructed images are created on an independent workstation and reviewed. FINDINGS: LUNGS: The lungs are grossly clear, there is no concerning parenchymal mass or nodule identified. T here is no pleural effusion or pneumothorax seen. The tracheobronchial tree is patent. AORTA: No additional significant abnormality is seen. MEDIASTINUM: There is satisfactory enhancement of the pulmonary artery and its branches, there is no CT evidence for pulmonary embolism. There are no greater than 1 cm hilar or mediastinal lymph nodes. No pericardial effusion is seen. 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 Postop change noted in the right shoulder. Patient is post cholecystectomy. IMPRESSION: NO EVIDENT PULMONARY EMBOLISM.
[2018-03-30 20:09] VITALS: BP 167/83; PULSE 83; TEMP 97.7
== END 2018-03-30 20:15 | disposition home or self-care (01) ==
LOC: EC 16:49
DX: R07.89 Other chest pain (principal); M54.5 Low back pain; R60.0 Localized edema; K21.9 Gastro-esophageal reflux disease without esophagitis; I10 Essential (primary) hypertension; Z87.891 Personal history of nicotine dependence; Z98.890 Other specified postprocedural states; Z79.899 Other long term (current) drug therapy; Z91.048 Other nonmedicinal substance allergy status; Z88.1 Allergy status to other antibiotic agents; Z91.041 Radiographic dye allergy status; Z88.0 Allergy status to penicillin; Z88.8 Allergy status to other drugs, medicaments and biological substances
CPT/HCPCS: 99285; 96374; 96375 ×2; 96361 ×3; 36415; 93005; 85379; 80053; 82550; 82553; 83735; 84100; 84484; 85025; 85610; 85730; 71275; J1200; J2930; Q9967

== ENCOUNTER → 2021-05-09 | Outpatient (CLI) | payer MEDICARE, OTHER | END | disposition home or self-care (01) | LOC: RADMRIMAIN 07:57 | PROVIDERS: ATTEND Family Medicine | DX: Z53.9 Procedure and treatment not carried out, unspecified reason (principal) ==

== ENCOUNTER 2021-10-12 14:54 | Emergency (ER) | payer MEDICARE, OTHER ==
[2021-10-12] MEDS ORDERED: ALBUTEROL HFA INHALER INHALATION STA (16:07)
--- NOTE | 2021-10-12 17:25 | ED ---
General Adult HPI - General Chief complaint: Upper Respiratory Infection Stated complaint: Covid + Time Seen by Provider: 10/12/21 15:58 Source: patient, RN notes reviewed Mode of arrival: ambulatory Limitations: no limitations - History of Present Illness Initial comments: Patient is a 66-year-old female that presents to the emergency department statin g she is Covid-positive wanted monoclonal antibodies. Patient notes that she did not bring her test or a picture a test that she did email. Patient was otherwise in no apparent distress. She notes that she did feel short of breath had a cough and was fatigue. She denied chest pain headache nausea vomiting diarrhea constipation fever fatigue chills. - Related Data Home Medications Medication Instructions Recorded Confirmed ALPRAZolam [Xanax] 0.125 - 0.25 mg PO BID PRN 06/27/17 03/30/18 Pantoprazole Sodium [Protonix] 40 mg PO DAILY@1700 06/27/17 03/30/18 Brimonidine Tartrate [Alphagan P 1 drops RIGHT EYE QAM 02/25/18 03/30/18 0.2% Ophth Soln] Metoprolol Tartrate [Lopressor] 25 mg PO BID@0600,1800 02/25/18 03/30/18 amLODIPine [Norvasc] 5 mg PO DAILY@0600 02/25/18 03/30/18 hydrOXYzine pamoate [Vistaril] 25 mg PO TID PRN 03/30/18 03/30/18 Previous Rx's Medication Instructions Recorded Aspirin EC [Ecotrin Low Dose] 81 mg PO DAILY #30 tablet. 06/29/17 HYDROcodone/APAP 7.5-325MG [[place] 1 - 2 each PO Q6HR PRN #90 tab 03/08/18 7.5-325] Sennosides-Docusate Sodium 1 tab PO BID PRN #60 tablet 03/08/18 [Senokot-S] diazePAM [Valium] 5 mg PO TID PRN #90 tab 03/08/18 Allergies Allergy/AdvReac Type Severity Reaction Status Date / Time adhesive tape Allergy miller skin Verified 10/12/21 15:15 erythromycin base Allergy Nausea & Verified 10/12/21 15:15 Vomiting Iodinated Contrast Media Allergy Swelling Verified 10/12/21 15:15 [Iodinated Contrast- Oral and IV Dye] Iodine and Iodide Containing Allergy Swelling Verified 10/12/21 15:15 Produc Penicillins Allergy Unknown Verified 10/12/21 15:15 prednisone Allergy facial Verified 10/12/21 15:15 swelling contrast dye Allergy Swelling Uncoded 10/12/21 15:15 silk tape Allergy miller skin Uncoded 10/12/21 15:15 steroid injection Allergy facial Uncoded 10/12/21 15:15 swelling Review of Systems ROS Statement: Those systems with pertinent positive or pertinent negative responses have been documented in the HPI. ROS Other: All systems not noted in ROS Statement are negative. Past Medical History Past Medical History: Eye Disorder, GERD/Reflux, Hypertension, Osteoarthritis (OA) Additional Past Medical History / Comment(s): back problems and pain, left eye prosthetic eye, inactive gastritis,SOB,constipation,IBS,hemorrhoids,hypoglycemia History of Any Multi-Drug Resistant Organisms: None Reported Past Surgical History: Back Surgery, Cholecystectomy, Hysterectomy, Orthopedic Surgery Additional Past Surgical History / Comment(s): eye surgery, prothetic left eye, right shoulder ligament repair Past Anesthesia/Blood Transfusion Reactions: No Reported Reaction Past Psychological History: Anxiety Smoking Status: Never smoker Past Alcohol Use History: None Reported Past Drug Use History: None Reported - Past Family History Mother Family Medical History: Congestive Heart Failure (CHF), Myocardial Infarction ([place]), Renal Disease Father Family Medical History: CVA/TIA, Diabetes Mellitus General Exam Limitations: no limitations General appearance: alert, in no apparent distress, obese Head exam: Present: atraumatic, normocephalic, normal inspection Eye exam: Present: normal appearance, PERRL, EOMI. Absent: scleral icterus, conjunctival injection, periorbital swelling ENT exam: Present: normal exam, mucous membranes moist Neck exam: Present: normal inspection Respiratory exam: Present: normal lung sounds bilaterally. Absent: respiratory distress, wheezes, rales, rhonchi, stridor Cardiovascular Exam: Present: regular rate, normal rhythm, normal heart sounds. Absent: systolic murmur, diastolic murmur, rubs, gallop, clicks GI/Abdominal exam: Present: soft, normal bowel sounds. Absent: distended, tenderness, guarding, rebound, rigid Extremities exam: Present: normal inspection, full ROM, normal capillary refill. Absent: tenderness, pedal edema, joint swelling, calf tenderness Neurological exam: Present: alert, oriented X3 Psychiatric exam: Present: normal affect, normal mood Skin exam: Present: warm, dry, intact, normal color. Absent: rash Course Vital Signs 10/12/21 15:13 Temperature 98.5 F Pulse Rate 94 Respiratory 20 Rate Blood Pressure 130/77 O2 Sat by Pulse 96 Oximetry Medical Decision Making - Medical Decision Making 66-year-old female Covid-positive wanting monoclonal antibodies. Due to patient not having her paper test or a picture of her test Covid swab ordered. Covid test positive. Patient does meet criteria for monoclonal antibodies and wishes to undergo infusion. Patient is agreeable to discharge home after. Albuterol inhaler ordered. Case discussed with Dr. Jarquin, patient discharge home after infusion. - Lab Data Lab Results 10/12/21 Range/Units 16:15 Coronavirus (PCR) Detected A (Not Detectd) Disposition Clinical Impression: COVID Disposition: HOME SELF-CARE Condition: Stable Instructions (If sedation given, give patient instructions): Coronavirus Disease 2019 (COVID-19) Additional Instructions: Please return to the Emergency Department if symptoms worsen or any other concerns. Follow-up with primary care in 1-2 days. Take Tylenol Motrin as needed for any aches pains or fevers. Quarantine per CDC guidelines. Avoid any strenuous activity or exercise. Is patient prescribed a controlled substance at d/c from ED?: No Referrals: Apurva Richardson DO [Primary Care Provider] - 1-2 days Time of Disposition: 17:24
[2021-10-12] MEDS ORDERED: BAMLANIVIMAB (EUA) 700 MG, ETESEVIMAB (EUA) 1,400 MG in SODIUM CHLORIDE 0.9% 50 ML IVPB ONE (17:30)
[2021-10-12] MEDS ORDERED: SODIUM CHLORIDE 0.9% 50 ML IVPB ONE (18:00)
[2021-10-12 18:21] VITALS: RESP 20
--- NOTE | 2021-10-12 18:24 | XR ---
EXAMINATION TYPE: XR chest 2V DATE OF EXAM: 10/12/2021 COMPARISON: 02/22/2018 HISTORY: Weakness. Short of breath TECHNIQUE: FINDINGS: Heart is normal. Lungs are clear of consolidation. There are no hilar masses. Costophrenic angles are clear. Bony thorax is intact. There is right shoulder surgery noted. IMPRESSION: No active cardiopulmonary disease. No change.
[2021-10-12 19:06] VITALS: BP 146/70; PULSE 81; TEMP 98.2
== END 2021-10-12 19:51 | disposition home or self-care (01) ==
LOC: EC 14:54
DX: U07.1 COVID-19 (principal); K21.9 Gastro-esophageal reflux disease without esophagitis; I10 Essential (primary) hypertension; M19.90 Unspecified osteoarthritis, unspecified site; F41.9 Anxiety disorder, unspecified; Z79.82 Long term (current) use of aspirin; Z88.1 Allergy status to other antibiotic agents; Z88.0 Allergy status to penicillin; Z90.49 Acquired absence of other specified parts of digestive tract; Z90.710 Acquired absence of both cervix and uterus
CPT/HCPCS: 99285; 94640; 87635; 71046; J3490

== ENCOUNTER 2022-01-07 03:17 | Inpatient (IN) | payer MEDICARE, OTHER ==
[2022-01-07] MEDS ORDERED: SODIUM CHLORIDE 0.9% 1,000 ML IV STA (03:19)
[2022-01-07] MEDS ORDERED: METOPROLOL TARTRATE 5 MG/5 ML VIAL IVP STA (03:22)
[2022-01-07] MEDS ORDERED: DILTIAZEM DRIP BOLUS FROM BAG 1 MG SOLN IV ONE (03:22)
--- NOTE | 2022-01-07 03:27 | ED ---
Arrhythmia/Palpitations HPI - General Stated Complaint: SVT Time Seen by Provider: 01/07/22 03:19 Source: patient, EMS, RN notes reviewed, old records reviewed Mode of arrival: EMS Limitations: no limitations - History of Present Illness Initial Comments: This is a 66-year-old female presenting by EMS today. Patient Dese for evaluation of elevated blood pressure elevated heart rate severely elevated heart rate, called EMS secondary severity of the heart rate. Patient feels the palpitations and heart rate beating in her chest. She states she has never had this issue before she does have a history of some vascular illness or disease and does struggle with severely elevated blood pressure. She currently does not have chest pain and shortness of breath is improving on arrival to the emergency department MD Complaint: rapid heart beat, "heart racing", irregular heart beat -: minutes(s) Context: occurred during rest, awoke with symptoms Arrhythmia History: SVT Associated Symptoms: shortness of breath Treatments Prior to Arrival: beta-bree - Related Data Home Medications Medication Instructions Recorded Confirmed ALPRAZolam [Xanax] 0.125 - 0.25 mg PO BID PRN 06/27/17 03/30/18 Pantoprazole Sodium [Protonix] 40 mg PO DAILY@1700 06/27/17 03/30/18 Brimonidine Tartrate [Alphagan P 1 drops RIGHT EYE QAM 02/25/18 03/30/18 0.2% Ophth Soln] Metoprolol Tartrate [Lopressor] 25 mg PO BID@0600,1800 02/25/18 03/30/18 amLODIPine [Norvasc] 5 mg PO DAILY@0600 02/25/18 03/30/18 hydrOXYzine pamoate [Vistaril] 25 mg PO TID PRN 03/30/18 03/30/18 Previous Rx's Medication Instructions Recorded Aspirin EC [Ecotrin Low Dose] 81 mg PO DAILY #30 tablet. 06/29/17 HYDROcodone/APAP 7.5-325MG [[place] 1 - 2 each PO Q6HR PRN #90 tab 03/08/18 7.5-325] Sennosides-Docusate Sodium 1 tab PO BID PRN #60 tablet 03/08/18 [Senokot-S] diazePAM [Valium] 5 mg PO TID PRN #90 tab 03/08/18 Allergies Allergy/AdvReac Type Severity Reaction Status Date / Time adhesive tape Allergy miller skin Verified 10/12/21 15:15 erythromycin base Allergy Nausea & Verified 10/12/21 15:15 Vomiting Iodinated Contrast Media Allergy Swelling Verified 10/12/21 15:15 [Iodinated Contrast- Oral and IV Dye] Iodine and Iodide Containing Allergy Swelling Verified 10/12/21 15:15 Produc Penicillins Allergy Unknown Verified 10/12/21 15:15 prednisone Allergy facial Verified 10/12/21 15:15 swelling contrast dye Allergy Swelling Uncoded 10/12/21 15:15 silk tape Allergy miller skin Uncoded 10/12/21 15:15 steroid injection Allergy facial Uncoded 10/12/21 15:15 swelling Review of Systems ROS Statement: Those systems with pertinent positive or pertinent negative responses have been documented in the HPI. ROS Other: All systems not noted in ROS Statement are negative. Past Medical History Past Medical History: Eye Disorder, GERD/Reflux, Hypertension, Osteoarthritis (OA) Additional Past Medical History / Comment(s): back problems and pain, left eye prosthetic eye, inactive gastritis,SOB,constipation,IBS,hemorrhoids,hypoglycemia History of Any Multi-Drug Resistant Organisms: None Reported Past Surgical History: Back Surgery, Cholecystectomy, Hysterectomy, Orthopedic Surgery Additional Past Surgical History / Comment(s): eye surgery, prothetic left eye, right shoulder ligament repair Past Anesthesia/Blood Transfusion Reactions: No Reported Reaction Past Psychological History: Anxiety Smoking Status: Never smoker Past Alcohol Use History: None Reported Past Drug Use History: None Reported - Past Family History Mother Family Medical History: Congestive Heart Failure (CHF), Myocardial Infarction ([place]), Renal Disease Father Family Medical History: CVA/TIA, Diabetes Mellitus General Exam Limitations: no limitations General appearance: alert, in no apparent distress, anxious Head exam: Present: atraumatic, normocephalic, normal inspection Eye exam: Present: normal appearance, PERRL, EOMI. Absent: scleral icterus, co njunctival injection, periorbital swelling ENT exam: Present: normal exam, mucous membranes moist Neck exam: Present: normal inspection. Absent: tenderness, meningismus, lymphadenopathy Respiratory exam: Present: normal lung sounds bilaterally. Absent: respiratory distress, wheezes, rales, rhonchi, stridor Cardiovascular Exam: Present: tachycardia, irregular rhythm, normal heart sounds. Absent: systolic murmur, diastolic murmur, rubs, gallop, clicks GI/Abdominal exam: Present: soft, normal bowel sounds. Absent: distended, tenderness, guarding, rebound, rigid Extremities exam: Present: normal inspection, full ROM, normal capillary refill. Absent: tenderness, pedal edema, joint swelling, calf tenderness Back exam: Present: normal inspection Neurological exam: Present: alert, oriented X3, CN II-XII intact Psychiatric exam: Present: normal affect, normal mood Skin exam: Present: warm, dry, intact, normal color. Absent: rash Course Vital Signs 01/07/22 01/07/22 03:18 04:25 Temperature 98.6 F Pulse Rate 142 H 91 Respiratory 18 18 Rate Blood Pressure 136/87 121/86 O2 Sat by Pulse 97 96 Oximetry - Reevaluation(s) Reevaluation #1: 01/07/22 03:47 Medical record is reviewed Reevaluation #2: 01/07/22 03:47 EMS did give adenosine 2 prior to arrival heart rate now 150s atrial fibrillation Reevaluation #3: 01/07/22 05:34 Patient symptoms continued to improve with medications here in the ER - Consultations Consultation #1: Spoke with Dr. Richardson who agrees to admit this patient EKG Findings - EKG Comments: EKG Findings:: EKG Shows A. fib with RVR 152 QRS 90 QTC 323 Medical Decision Making - Medical Decision Making 66 male female presented to to the emergency department for evaluation of shortness of breath and tachycardia elevated blood pressure. Patient is found to be nature fibrillation with RVR prehospital she is in SVT rate of around 200 and given adenosine. Patient both Cardizem and metoprolol here in the emergency department - Lab Data Result diagrams: 01/07/22 03:26 01/07/22 03:26 Lab Results 01/07/22 01/07/22 01/07/22 Range/Units 03:26 03:26 03:26 WBC 7.4 (3.8-10.6) k/uL RBC 5.09 (3.80-5.40) m/uL Hgb 14.9 (11.4-16.0) gm/dL Hct 44.5 (34.0-46.0) % MCV 87.4 (80.0-100.0) fL MCH 29.3 (25.0-35.0) pg MCHC 33.5 (31.0-37.0) g/dL RDW 12.9 (11.5-15.5) % Plt Count 328 (150-450) k/uL MPV 7.4 Neutrophils % 52 % Lymphocytes % 38 % Monocytes % 4 % Eosinophils % 2 % Basophils % 1 % Neutrophils # 3.8 (1.3-7.7) k/uL Lymphocytes # 2.8 (1.0-4.8) k/uL Monocytes # 0.3 (0-1.0) k/uL Eosinophils # 0.2 (0-0.7) k/uL Basophils # 0.1 (0-0.2) k/uL PT 10.1 (9.0-12.0) sec INR 0.9 (<1.2) APTT 22.8 (22.0-30.0) sec D-Dimer 0.45 (<0.60) mg/L FEU Sodium 141 (137-145) mmol/L Potassium 3.6 (3.5-5.1) mmol/L Chloride 106 (98-107) mmol/L Carbon Dioxide 22 (22-30) mmol/L Anion Gap 13 mmol/L BUN 16 (7-17) mg/dL Creatinine 0.87 (0.52-1.04) mg/dL Est GFR (CKD-EPI)AfAm 80 (>60 ml/min/1.73 sqM) Est GFR (CKD-EPI)NonAf 69 (>60 ml/min/1.73 sqM) Glucose 235 H (74-99) mg/dL Plasma Lactic Acid Lon (0.7-2.0) mmol/L Calcium 8.8 (8.4-10.2) mg/dL Phosphorus 3.5 (2.5-4.5) mg/dL Magnesium 1.9 (1.6-2.3) mg/dL Total Bilirubin 0.4 (0.2-1.3) mg/dL AST 32 (14-36) U/L ALT 29 (4-34) U/L Alkaline Phosphatase 97 (38-126) U/L Troponin I (0.000-0.034) ng/mL NT-Pro-B Natriuret Pep pg/mL Total Protein 7.4 (6.3-8.2) g/dL Albumin 4.1 (3.5-5.0) g/dL TSH 2.590 (0.465-4.680) mIU/L 01/07/22 01/07/22 01/07/22 Range/Units 03:26 03:26 03:26 WBC (3.8-10.6) k/uL RBC (3.80-5.40) m/uL Hgb (11.4-16.0) gm/dL Hct (34.0-46.0) % MCV (80.0-100.0) fL MCH (25.0-35.0) pg MCHC (31.0-37.0) g/dL RDW (11.5-15.5) % Plt Count (150-450) k/uL MPV Neutrophils % % Lymphocytes % % Monocytes % % Eosinophils % % Basophils % % Neutrophils # (1.3-7.7) k/uL Lymphocytes # (1.0-4.8) k/uL Monocytes # (0-1.0) k/uL Eosinophils # (0-0.7) k/uL Basophils # (0-0.2) k/uL PT (9.0-12.0) sec INR (<1.2) APTT (22.0-30.0) sec D-Dimer (<0.60) mg/L FEU Sodium (137-145) mmol/L Potassium (3.5-5.1) mmol/L Chloride (98-107) mmol/L Carbon Dioxide (22-30) mmol/L Anion Gap mmol/L BUN (7-17) mg/dL Creatinine (0.52-1.04) mg/dL Est GFR (CKD-EPI)AfAm (>60 ml/min/1.73 sqM) Est GFR (CKD-EPI)NonAf (>60 ml/min/1.73 sqM) Glucose (74-99) mg/dL Plasma Lactic Acid Lon 4.2 H* (0.7-2.0) mmol/L Calcium (8.4-10.2) mg/dL Phosphorus (2.5-4.5) mg/dL Magnesium (1.6-2.3) mg/dL Total Bilirubin (0.2-1.3) mg/dL AST (14-36) U/L ALT (4-34) U/L Alkaline Phosphatase (38-126) U/L Troponin I <0.012 (0.000-0.034) ng/mL NT-Pro-B Natriuret Pep 59 pg/mL Total Protein (6.3-8.2) g/dL Albumin (3.5-5.0) g/dL TSH (0.465-4.680) mIU/L Critical Care Time Critical Care Time: Yes Total Critical Care Time: 31 Disposition Clinical Impression: Atrial fibrillation, Atrial fibrillation with RVR, SVT (supraventricular tachycardia) Disposition: ADMITTED IP TO THIS HOSP Condition: Fair Is patient prescribed a controlled substance at d/c from ED?: No Referrals: pAurva Richardson DO [Primary Care Provider] - 1-2 days
[2022-01-07] MEDS: DILTIAZEM 125 MG in SODIUM CHLORIDE 0.9% 100 ML IV SCH (03:37)
[2022-01-07 03:59] LABS: Basophils # (A) 0.1 k/uL (0-0.2); Basophils % (A) 1 %; Eosinophils # (A) 0.2 k/uL (0-0.7); Eosinophils % (A) 2 %; HCT 44.5 % (34.0-46.0); HGB 14.9 gm/dL (11.4-16.0); Lymphocytes # (A) 2.8 k/uL (1.0-4.8); Lymphocytes % (A) 38 %; MCH 29.3 pg (25.0-35.0); MCHC 33.5 g/dL (31.0-37.0); MCV 87.4 fL (80.0-100.0); Mean Platelet Volume 7.4; Monocytes # (A) 0.3 k/uL (0-1.0); Monocytes % (A) 4 %; Neutrophils # (A) 3.8 k/uL (1.3-7.7); Neutrophils % (A) 52 %; Platelet Count 328 k/uL (150-450); RBC 5.09 m/uL (3.80-5.40); RDW 12.9 % (11.5-15.5); WBC 7.4 k/uL (3.8-10.6)
[2022-01-07 04:19] LABS: Albumin 4.1 g/dL (3.5-5.0); Calcium 8.8 mg/dL (8.4-10.2); Magnesium 1.9 mg/dL (1.6-2.3); Phosphorus 3.5 mg/dL (2.5-4.5); Potassium 3.6 mmol/L (3.5-5.1); Total Bilirubin 0.4 mg/dL (0.2-1.3); Total Protein 7.4 g/dL (6.3-8.2)
[2022-01-07 04:21] LABS: INR 0.9 (<1.2); Prothrombin Time 10.1 sec (9.0-12.0)
[2022-01-07 04:22] LABS: Partial Thromboplastin Time 22.8 sec (22.0-30.0)
[2022-01-07] MEDS ORDERED: NALOXONE 0.4 MG/ML 1 ML VIAL IV PRN (05:30)
[2022-01-07] MEDS ORDERED: MORPHINE SULFATE 4 MG/ML SYRINGE IV PRN (05:30)
[2022-01-07] MEDS ORDERED: ONDANSETRON 4 MG/2 ML VIAL IVP PRN (05:30)
[2022-01-07] MEDS ORDERED: LORazepam 2 MG/ML INJ IV PRN (05:30)
[2022-01-07] MEDS ORDERED: HEPARIN SODIUM 1,000 UN/ML (10ML VL) IV PRN (08:34)
[2022-01-07] MEDS ORDERED: HEPARIN SODIUM 1,000 UN/ML (10ML VL) IV ONE (08:34)
[2022-01-07] MEDS ORDERED: MONTELUKAST 10 MG TAB PO PRN (08:36)
--- NOTE | 2022-01-07 08:45 | P.CRDCN ---
History of Present Illness History of present illness: 66-year-old lady with history of hypertension dyslipidemia and arthritis comes to Hospital following an episode of sustained palpitations at home. She developed sudden onset palpitations associated with discomfort in her chest some shortness of breath and not feeling well. She called EMS. Her heart rate apparently was in the 180s. She received some medication through IV probably adenosine that was administered findings with some improvement in her heart rate. An EKG in the chart shows atrial fibrillation with a heart rate of [address]-T wave changes subsequent EKG shows normal sinus rhythm. At the time of my evaluation this morning she seems to be in sinus rhythm. I'm told by the nurse the patient has had recurrent episodes of rapid irregular heart rhythm intermittently. Cardiac enzymes are negative. EKG does not reveal ischemic changes. I'm going to start the patient and flecainide for rhythm suppression monitored her EKG is carefully started on IV heparin and convert her to L occlusal Zaroxolyn depending upon her insurance coverage. An EKG echocardiogram done at bedside shows preserved LV function. There is no history of coronary artery disease or congestive heart failure. Patient has seen my associate Dr. Spencer in the past and has undergone stress test and echocardiogram and was told she had essentially healthy heart. Constitutional: Denies chills. Denies fever. Eyes: Denies blurred vision. Denies pain. Ears, nose, mouth and throat: Denies headache. Denies sore throat. Cardiovascular: Denies chest pain. Denies shortness of breath. Significant for palpitations Respiratory: Denies cough. Gastrointestinal: Denies abdominal pain. Denies diarrhea. Denies nausea. Denies vomiting. Musculoskeletal: Denies myalgias. Integumentary: Denies pruritus. Denies rash. Neurological: Denies numbness. Denies weakness. Psychiatric: Denies anxiety. Denies depression. Endocrine: Denies fatigue. Denies weight change. Genitourinary: Denies burning, hematuria, frequency of urination. Hematological: No anemia or excess bleeding. General: The patient is awake and alert, in no distress, and does not appear acutely ill. Skin: Skin is warm and dry and no rashes or lesions are noted. Eye: Pupils are equal, round and reactive to light, extra-ocular movements are intact; there is normal conjunctiva bilaterally. Ears, nose, mouth and throat: There are moist mucous membranes and no oral lesions. Neck: The neck is supple, there is no tenderness or JVD. Cardiovascular: There is a regular rate and rhythm. No murmur, rub or gallop is appreciated. Respiratory: Lungs are clear to auscultation, respirations are non-labored, breath sounds are equal. Gastrointestinal: Soft, non-distended, non-tender abdomen without masses or org anomegaly noted. There is no rebound or guarding present. Bowel sounds are unremarkable. Back: There is no tenderness to palpation in the midline. There is no obvious deformity. Musculoskeletal: Normal ROM, no tenderness, There is no pedal edema. There is no calf tenderness or swelling. Extremities: No edema. Vascular: Femoral pulse is normal. Posterior tibial pulses are normal .Dorsalis pedis is palpable. Neurological: CN II-XII intact. There are no obvious motor or sensory deficits. Speech is normal. Psychiatric: Cooperative, appropriate mood & affect, normal judgment. Assessment and plan: Paroxysmal atrial fibrillation Hypertension Dyslipidemia Start the patient on IV heparin Start the patient and flecainide Converted to oral anticoagulant Past Medical History Past Medical History: Eye Disorder, GERD/Reflux, Hypertension, Osteoarthritis (OA) Additional Past Medical History / Comment(s): back problems and pain, left eye prosthetic eye, inactive gastritis,SOB,constipation,IBS,hemorrhoids,hypoglycemia History of Any Multi-Drug Resistant Organisms: None Reported Past Surgical History: Back Surgery, Cholecystectomy, Hysterectomy, Orthopedic Surgery Additional Past Surgical History / Comment(s): eye surgery, prothetic left eye, right shoulder ligament repair Past Anesthesia/Blood Transfusion Reactions: No Reported Reaction Past Psychological History: Anxiety Smoking Status: Never smoker Past Alcohol Use History: None Reported Past Drug Use History: None Reported - Past Family History Mother Family Medical History: Congestive Heart Failure (CHF), Myocardial Infarction ([place]), Renal Disease Father Family Medical History: CVA/TIA, Diabetes Mellitus Medications and Allergies Home Medications Medication Instructions Recorded Confirmed Type Pantoprazole Sodium [Protonix] 40 mg PO PC-BRKFST 06/27/17 01/07/22 History Metoprolol Tartrate [Lopressor] 25 mg PO W/SUPPER 02/25/18 01/07/22 History Acetaminophen Tab [Tylenol Tab] 500 mg PO Q6H PRN 01/07/22 01/07/22 History Ascorbic Acid [Vitamin C] 500 mg PO DAILY 01/07/22 01/07/22 History Cyclobenzaprine [Flexeril] 10 mg PO DAILY PRN 01/07/22 01/07/22 History Ergocalciferol [Vitamin D2 (1250 1,250 mcg PO BUTLER 01/07/22 01/07/22 History Mcg = 62104 Iu)] Furosemide [Lasix] 20 mg PO Q48H 01/07/22 01/07/22 History Gabapentin [Neurontin] 100 mg PO HS 01/07/22 01/07/22 History Latanoprost/Pf [Latanoprost 0.005% 1 drop RIGHT EYE QAM 01/07/22 01/07/22 History Eye Drop] Levothyroxine Sodium [Synthroid] 75 mcg PO DAILY 01/07/22 01/07/22 History Metoprolol Tartrate [Lopressor] 37.5 mg PO QAM 01/07/22 01/07/22 History Montelukast [Singulair] 10 mg PO HS PRN 01/07/22 01/07/22 History Potassium Chloride [Klor-Con 20] 20 meq PO Q48H 01/07/22 01/07/22 History Vitamin D3 Drops 1 dose PO DAILY 01/07/22 01/07/22 History Zinc 50 mg PO DAILY 01/07/22 01/07/22 History amLODIPine [Norvasc] 10 mg PO DAILY 01/07/22 01/07/22 History traMADol HCL [Ultram] 50 mg PO TID PRN 01/07/22 01/07/22 History Allergies Allergy/AdvReac Type Severity Reaction Status Date / Time adhesive tape Allergy miller skin Verified 01/07/22 06:39 erythromycin base Allergy Nausea & Verified 01/07/22 06:39 Vomiting Iodinated Contrast Media Allergy Swelling Verified 01/07/22 06:39 [Iodinated Contrast- Oral and IV Dye] Iodine and Iodide Containing Allergy Swelling Verified 01/07/22 06:39 Produc Penicillins Allergy Unknown Verified 01/07/22 06:39 prednisone Allergy facial Verified 01/07/22 06:39 swelling contrast dye Allergy Swelling Uncoded 01/07/22 06:39 silk tape Allergy miller skin Uncoded 01/07/22 06:39 steroid injection Allergy facial Uncoded 01/07/22 06:39 swelling Physical Exam Vitals: Vital Signs Temp Pulse Resp BP Pulse Ox 01/07/22 06:20 99 18 113/67 96 01/07/22 04:25 91 18 121/86 96 01/07/22 03:18 98.6 F 142 H 18 136/87 97 Intake and Output 01/06/22 01/07/22 01/07/22 22:59 06:59 14:59 Other: Weight 90.718 kg Results 01/07/22 03:26 01/07/22 03:26 Cardiac Enzymes 01/07/22 01/07/22 01/07/22 Range/Units 03: 03: 07:42 AST 32 (14-36) U/L Troponin I <0.012 0.084 H* (0.000-0.034) ng/mL Coagulation 01/07/22 Range/Units 03: PT 10.1 (9.0-12.0) sec APTT 22.8 (22.0-30.0) sec CBC 01/07/22 Range/Units 03:26 WBC 7.4 (3.8-10.6) k/uL RBC 5.09 (3.80-5.40) m/uL Hgb 14.9 (11.4-16.0) gm/dL Hct 44.5 (34.0-46.0) % Plt Count 328 (150-450) k/uL Comprehensive Metabolic Panel 01/07/22 Range/Units 03:26 Sodium 141 (137-145) mmol/L Potassium 3.6 (3.5-5.1) mmol/L Chloride 106 (98-107) mmol/L Carbon Dioxide 22 (22-30) mmol/L BUN 16 (7-17) mg/dL Creatinine 0.87 (0.52-1.04) mg/dL Glucose 235 H (74-99) mg/dL Calcium 8.8 (8.4-10.2) mg/dL AST 32 (14-36) U/L ALT 29 (4-34) U/L Alkaline Phosphatase 97 (38-126) U/L Total Protein 7.4 (6.3-8.2) g/dL Albumin 4.1 (3.5-5.0) g/dL Current Medications Generic Name Dose Route Start Last Admin Trade Name Freq PRN Reason Stop Dose Admin Amlodipine Besylate 10 mg 01/07/22 09:00 Amlodipine 10 Mg Tab PO DAILY [facility] Flecainide Acetate 50 mg 01/07/22 09:00 Flecainide 50 Mg Tab PO Q12HR [facility] Gabapentin 100 mg 01/07/22 21:00 Gabapentin 100 Mg Cap PO HS [facility] Heparin Sodium (Porcine) 0 unit 01/07/22 08:34 Heparin Sodium 1,000 Un/Ml (10ml Vl) IV PER PROTOCOL PRN Low PTT Protocol Diltiazem HCl 125 mg/ Sodium 125 mls @ 5 mls/hr 01/07/22 03:30 01/07/22 03:37 Chloride IV 5 mg/hr .Q24H [facility] 5 mls/hr Administration 5 MG/HR Heparin Sodium/Sodium Chloride 250 mls @ 10 mls/hr 01/07/22 08:45 25,000 unit/ Sodium Chloride IV .Q24H [facility] Protocol 11.023 UNITS/KG/HR Levothyroxine Sodium 75 mcg 01/07/22 09:00 Levothyroxine 75 Mcg Tab PO DAILY [facility] Lorazepam 0.5 mg 01/07/22 05:30 Lorazepam 2 Mg/Ml Inj IV Q6HR PRN Anxiety Montelukast Sodium 10 mg 01/07/22 08:36 Montelukast 10 Mg Tab PO HS PRN allergy/asthma symptoms Morphine Sulfate 4 mg 01/07/22 05:30 Morphine Sulfate 4 Mg/Ml Syringe IV Q4HR PRN Severe Pain Naloxone HCl 0.2 mg 01/07/22 05:30 Naloxone 0.4 Mg/Ml 1 Ml Vial IV Q2M PRN Opioid Reversal Non-Formulary Medication 1 drop 01/07/22 09:00 Latanoprost/Pf [Latanoprost 0.005% Eye Drop] RIGHT EYE QAM [facility] Ondansetron HCl 4 mg 01/07/22 05:30 Ondansetron 4 Mg/2 Ml Vial IVP Q8HR PRN Nausea And Vomiting Pantoprazole Sodium 40 mg 01/07/22 08:45 Pantoprazole 40 Mg Tablet PO PC-BRKFST [facility] Tramadol HCl 50 mg 01/07/22 08:36 Tramadol 50 Mg Tab PO TID PRN Pain Intake and Output 01/06/22 01/07/22 01/07/22 22:59 06:59 14:59 Other: Weight 90.718 kg 01/07/22 03:26 01/07/22 03:26
--- NOTE | 2022-01-07 09:00 | ECHOF ---
Referral Reason:newAfib MEASUREMENTS -------- HEIGHT: 162.6 cm WEIGHT: 90.7 kg BP: 113/67 IVSd: 1.2 cm (0.6 - 1.1) LVIDd: 2.7 cm (3.9 - 5.3) LVPWd: 1.3 cm (0.6 - 1.1) IVSs: 2.1 cm LVIDs: 1.7 cm LVPWs: 1.4 cm LAESV Index (A-L): 23.38 ml/m Ao Diam: 2.7 cm (2.0 - 3.7) AV Cusp: 1.5 cm (1.5 - 2.6) LA Diam: 3.5 cm (2.7 - 3.8) MV EXCURSION: 15.892 mm (> 18.000) MV EF SLOPE: 78 mm/s (70 - 150) EPSS: 0.5 cm MV E Geovany: 1.03 m/s MV DecT: 237 ms MV A Geovany: 0.80 m/s MV E/A Ratio: 1.28 RAP: 5.00 mmHg RVSP: 43.49 mmHg FINDINGS -------- Sinus rhythm. This was a technically difficult study with suboptimal views. The left ventricular size is normal. There is borderline concentric left ventricular hypertrophy. Overall left ventricular systolic function is normal with, an EF between 55 - 60 %. The RV was not well visualized. Normal LA size by volume 22+/-6 ml/m2. The right atrial size is normal. 3.0mg of Lumason was utilized for enhancement of images Interatrial and interventricular septum intact. The aortic valve was not well visualized. There is no evidence of aortic regurgitation. There is no evidence of aortic stenosis. Mild mitral regurgitation is present. Mild tricuspid regurgitation present. There is mild pulmonary hypertension. The right ventricular systolic pressure, as measured by Doppler, is 43.49mmHg. There is no pulmonic regurgitation present. The aortic root size is normal. IVC Not well visulized. There is no pericardial effusion. CONCLUSIONS -------- 1. The left ventricular size is normal. 2. There is borderline concentric left ventricular hypertrophy. 3. Overall left ventricular systolic function is normal with, an EF between 55 - 60 %. 4. Mild mitral regurgitation is present. 5. Mild tricuspid regurgitation present. 6. There is mild pulmonary hypertension. 7. The right ventricular systolic pressure, as measured by Doppler, is 43.49mmHg. SAFETY REPRESENTATIVE: Ibis Alejo RDCS
[2022-01-07] MEDS: LATANOPROST 0.005% OPHTH DROPS 2.5 ML BTL RIGHT EYE SCH (09:10)
[2022-01-07] MEDS: amLODIPine 10 MG TAB PO SCH (09:26)
[2022-01-07] MEDS: traMADol 50 MG TAB PO PRN ×2 (09:41→22:55)
[2022-01-07] MEDS: LEVOTHYROXINE 75 MCG TAB PO SCH (09:42)
[2022-01-07] MEDS: PANTOPRAZOLE 40 MG TABLET PO SCH (09:42)
[2022-01-07] MEDS: FLECAINIDE 50 MG TAB PO SCH ×2 (09:42→21:38)
[2022-01-07] MEDS: HEPARIN SOD,PORK IN 0.45% NACL 25,000 UNIT in 0.45% NACL 1 250ML.BAG IV SCH (09:46)
[2022-01-07] MEDS: GABAPENTIN 100 MG CAP PO SCH (21:38)
[2022-01-08] MEDS: DILTIAZEM 125 MG in SODIUM CHLORIDE 0.9% 100 ML IV SCH (05:59)
[2022-01-08 07:32] LABS: ALT 31 U/L (4-34); AST 36 U/L (14-36); African American GFR (CKD) >90 (>60 ml/min/1.73 sqM); Albumin 3.7 g/dL (3.5-5.0); Alkaline Phosphatase 89 U/L (38-126); Anion Gap 6 mmol/L; Blood Urea Nitrogen 11 mg/dL (7-17); Calcium 8.8 mg/dL (8.4-10.2); Carbon Dioxide 24 mmol/L (22-30); Chloride 110 mmol/L (98-107); Glucose 118 mg/dL (74-99); Magnesium 2.1 mg/dL (1.6-2.3); Non-African American GFR(CKD) 88 (>60 ml/min/1.73 sqM); Phosphorus 4.4 mg/dL (2.5-4.5); Potassium 3.6 mmol/L (3.5-5.1); Prothrombin Time 10.7 sec (9.0-12.0); Sodium 140 mmol/L (137-145); Total Bilirubin 0.6 mg/dL (0.2-1.3); Total Protein 6.8 g/dL (6.3-8.2)
[2022-01-08 07:41] LABS: Basophils # (A) 0.1 k/uL (0-0.2); Basophils % (A) 1 %; Eosinophils # (A) 0.1 k/uL (0-0.7); Eosinophils % (A) 2 %; HCT 44.2 % (34.0-46.0); HGB 14.7 gm/dL (11.4-16.0); Lymphocytes # (A) 1.6 k/uL (1.0-4.8); Lymphocytes % (A) 29 %; MCH 29.9 pg (25.0-35.0); MCHC 33.2 g/dL (31.0-37.0); MCV 89.9 fL (80.0-100.0); Mean Platelet Volume 7.3; Monocytes # (A) 0.4 k/uL (0-1.0); Monocytes % (A) 7 %; Neutrophils # (A) 3.2 k/uL (1.3-7.7); Neutrophils % (A) 58 %; Platelet Count 282 k/uL (150-450); RBC 4.91 m/uL (3.80-5.40); RDW 13.1 % (11.5-15.5); WBC 5.5 k/uL (3.8-10.6)
[2022-01-08] MEDS: PANTOPRAZOLE 40 MG TABLET PO SCH (07:43)
[2022-01-08] MEDS: LEVOTHYROXINE 75 MCG TAB PO SCH (07:43)
[2022-01-08] MEDS: traMADol 50 MG TAB PO PRN ×2 (07:45→19:47)
--- NOTE | 2022-01-08 08:39 | P.HPIM ---
History of Present Illness H&P Date: 01/07/22 Chief Complaint: palpitations Kathrine Garcias is a 66 yo F with PMH of HTN who presented to the ED after experiencing palpitations last night. she states she was wken from sleep with the sensation fo her heart racing and developed some chest tightness. She took her BP and it was 190/110 so she called EMS. On their inital evalutation she states her HR was 180 and she was given atropine in the ambulance. On arrival, pt tachycardic, EKG showing A fib with RVR. Trop 0.084, labs otherwise unremarkable. Review of Systems All systems: negative Constitutional: Reports malaise, Reports weakness, Denies chills, Denies fever Eyes: denies blurred vision, denies pain Ears, nose, mouth and throat: Denies headache, Denies sore throat Cardiovascular: Reports lightheadedness, Reports rapid heart beat, Denies chest pain, Denies shortness of breath Respiratory: Denies cough Gastrointestinal: Denies abdominal pain, Denies diarrhea, Denies nausea, Denies vomiting Genitourinary: Denies dysuria, Denies hematuria Musculoskeletal: Denies myalgias Integumentary: Denies pruritus, Denies rash Neurological: Denies numbness, Denies weakness Psychiatric: Denies anxiety, Denies depression Endocrine: Denies fatigue, Denies weight change Past Medical History Past Medical History: Eye Disorder, GERD/Reflux, Hypertension, Osteoarthritis (OA) Additional Past Medical History / Comment(s): back problems and pain, left eye prosthetic eye, inactive gastritis,SOB,constipation,IBS,hemorrhoids,hypoglycemia History of Any Multi-Drug Resistant Organisms: None Reported Past Surgical History: Back Surgery, Cholecystectomy, Hysterectomy, Orthopedic Surgery Additional Past Surgical History / Comment(s): eye surgery, prothetic left eye, right shoulder ligament repair Past Anesthesia/Blood Transfusion Reactions: No Reported Reaction Past Psychological History: Anxiety Smoking Status: Never smoker Past Alcohol Use History: None Reported Past Drug Use History: None Reported - Past Family History Mother Family Medical History: Congestive Heart Failure (CHF), Myocardial Infarction ([place]), Renal Disease Father Family Medical History: CVA/TIA, Diabetes Mellitus Medications and Allergies Home Medications Medication Instructions Recorded Confirmed Type Pantoprazole Sodium [Protonix] 40 mg PO PC-BRKFST 06/27/17 01/07/22 History Metoprolol Tartrate [Lopressor] 25 mg PO W/SUPPER 02/25/18 01/07/22 History Acetaminophen Tab [Tylenol Tab] 500 mg PO Q6H PRN 01/07/22 01/07/22 History Apixaban [Eliquis] 5 mg PO BID 30 Days #60 tab 01/07/22 Rx Ascorbic Acid [Vitamin C] 500 mg PO DAILY 01/07/22 01/07/22 History Cyclobenzaprine [Flexeril] 10 mg PO DAILY PRN 01/07/22 01/07/22 History Ergocalciferol [Vitamin D2 (1250 1,250 mcg PO BUTLER 01/07/22 01/07/22 History Mcg = 31788 Iu)] Furosemide [Lasix] 20 mg PO Q48H 01/07/22 01/07/22 History Gabapentin [Neurontin] 100 mg PO HS 01/07/22 01/07/22 History Latanoprost/Pf [Latanoprost 0.005% 1 drop RIGHT EYE QAM 01/07/22 01/07/22 History Eye Drop] Levothyroxine Sodium [Synthroid] 75 mcg PO DAILY 01/07/22 01/07/22 History Metoprolol Tartrate [Lopressor] 37.5 mg PO QAM 01/07/22 01/07/22 History Montelukast [Singulair] 10 mg PO HS PRN 01/07/22 01/07/22 History Potassium Chloride [Klor-Con 20] 20 meq PO Q48H 01/07/22 01/07/22 History Vitamin D3 Drops 1 dose PO DAILY 01/07/22 01/07/22 History Zinc 50 mg PO DAILY 01/07/22 01/07/22 History amLODIPine [Norvasc] 10 mg PO DAILY 01/07/22 01/07/22 History traMADol HCL [Ultram] 50 mg PO TID PRN 01/07/22 01/07/22 History Allergies Allergy/AdvReac Type Severity Reaction Status Date / Time adhesive tape Allergy miller skin Verified 01/07/22 06:39 erythromycin base Allergy Nausea & Verified 01/07/22 06:39 Vomiting Iodinated Contrast Media Allergy Swelling Verified 01/07/22 06:39 [Iodinated Contrast- Oral and IV Dye] Iodine and Iodide Containing Allergy Swelling Verified 01/07/22 06:39 Produc Penicillins Allergy Unknown Verified 01/07/22 06:39 prednisone Allergy facial Verified 01/07/22 06:39 swelling contrast dye Allergy Swelling Uncoded 01/07/22 06:39 silk tape Allergy miller skin Uncoded 01/07/22 06:39 steroid injection Allergy facial Uncoded 01/07/22 06:39 swelling Physical Exam Vitals: Vital Signs Temp Pulse Resp BP Pulse Ox 01/07/22 21:39 93 18 123/55 95 01/07/22 14:00 98.3 F 80 16 136/73 97 01/07/22 09:54 73 18 129/58 97 01/07/22 06:20 99 18 113/67 96 01/07/22 04:25 91 18 121/86 96 01/07/22 03:18 98.6 F 142 H 18 136/87 97 Intake and Output 01/07/22 01/07/22 01/08/22 14:59 22:59 06:59 Intake Total 79.333 Balance 79.333 Intake: Intake, IV Titration 79.333 Amount Heparin Sod,Pork in 0.45% 79.333 NaCl 25,000 unit In 0.45 % NaCl 1 250ml.bag @ 11. 023 UNITS/KG/HR 10 mls/hr IV .Q24H [facility] Rx#: [id number] General: well nourished, well developed, NAD. Vitals reviewed Eyes: PERRL, EOMI, conjunctiva normal HENT: normocephalic, mucus membranes moist Neck: supple, no JVD Lungs: normal respiratory effort, no wheezes or rales CV: Regular rate and rhythm, no murmur. Peripheral pulses 2+ Abdomen: soft, nondistended, no organomegaly Lymph: no cervical or axillary LAD Skin: warm and dry. Neuro: A&Ox3, normal mood and affect Results CBC & Chem 7: 01/08/22 06:22 01/08/22 06:22 Labs: Abnormal Lab Results - Last 24 Hours (Table) 01/07/22 01/07/22 01/07/22 Range/Units 03:26 03:26 07:42 APTT (22.0-30.0) sec Glucose 235 H (74-99) mg/dL Plasma Lactic Acid Lon 4.2 H* (0.7-2.0) mmol/L Troponin I 0.084 H* (0.000-0.034) ng/mL 01/07/22 01/07/22 Range/Units 09:08 15:38 APTT 40.0 H (22.0-30.0) sec Glucose (74-99) mg/dL Plasma Lactic Acid Lon (0.7-2.0) mmol/L Troponin I 0.077 H* (0.000-0.034) ng/mL Assessment and Plan Plan: 1. A fib with RVR. Admit, cardiology consult. Start IV heparin. Flecanide per Cardio. Plan for transition to eliquis 2. HTN. Continue Norvasc 3. Glacuoma. Continue home eyedrops
--- NOTE | 2022-01-08 09:28 | P.PN ---
Subjective Progress Note Date: 01/08/22 Patient remains in sinus rhythm but continues to complain of palpitations with activity. She is currently on intravenous heparin and is still in the emergency room waiting for a bed to be admitted. She is currently on flecainide 50 twice a day I will obtain an EKG on her today. I asked the nurse to find out if she is covered for her liquids cells at all to if she is we will stop the heparin and start her on one of those 2 agents We will get her up and ambulate her and if she is feeling well we may be able to discharge her home An echocardiogram on her showed normal LV systolic function with mild pulmonary hypertension I will add Toprol-XL 25 mg daily given the intermittent episodes of palpitations On exam she is comfortable at rest vital signs are stable remains in sinus rhythm there is a jugular venous distention carotid upstroke is normal there is no bruit chest exam reveals good air entry bilaterally heart exam reveals first and second heart sounds no gallop no murmur or rub abdomen is soft exam extremities did not reveal any edema per for pulses are felt Assessment and plan: Paroxysmal atrial fibrillation History of hypertension Continue the patient on flecainide check an EKG today Start Toprol-XL Objective - Vital Signs Vital signs: Vital Signs Temp 98.3 F 01/07/22 14:00 Pulse 89 01/08/22 06:51 Resp 18 01/08/22 06:51 BP 124/52 01/08/22 06:51 Pulse Ox 96 01/08/22 06:51 Intake & Output 01/07/22 01/08/22 01/08/22 18:59 06:59 18:59 Intake Total 79.333 93.724 Balance 79.333 93.724 Intake: Intake, IV Titration 79.333 93.724 Amount Heparin Sod,Pork in 0.45% 79.333 93.724 NaCl 25,000 unit In 0.45 % NaCl 1 250ml.bag @ 11. 023 UNITS/KG/HR 10 mls/hr IV .Q24H [facility] Rx#: [id number] - Labs CBC & Chem 7: 01/08/22 06:22 01/08/22 06:22 Labs: Abnormal Lab Results - Last 24 Hours (Table) 01/07/22 01/07/22 01/07/22 Range/Units 09:08 15:38 23:31 APTT 40.0 H 69.5 H (22.0-30.0) sec Chloride (98-107) mmol/L Glucose (74-99) mg/dL Troponin I 0.077 H* (0.000-0.034) ng/mL 01/08/22 01/08/22 Range/Units 06:22 06:22 APTT 57.0 H (22.0-30.0) sec Chloride 110 H (98-107) mmol/L Glucose 118 H (74-99) mg/dL Troponin I (0.000-0.034) ng/mL
[2022-01-08] MEDS: HEPARIN SOD,PORK IN 0.45% NACL 25,000 UNIT in 0.45% NACL 1 250ML.BAG IV SCH (09:59)
[2022-01-08] MEDS: APIXABAN 5 MG TAB PO SCH ×2 (11:07→20:18)
[2022-01-08] MEDS: FLECAINIDE 50 MG TAB PO SCH ×2 (11:07→20:18)
[2022-01-08] MEDS: amLODIPine 10 MG TAB PO SCH (11:07)
[2022-01-08] MEDS: METOPROLOL SUCCINATE (ER) 25 MG TAB.ER.24H PO SCH (11:08)
[2022-01-08] MEDS: LATANOPROST 0.005% OPHTH DROPS 2.5 ML BTL RIGHT EYE SCH (13:18)
--- NOTE | 2022-01-08 14:52 | P.PN ---
Subjective Progress Note Date: 01/08/22 Kathrine Garcias is a 66 yo F with PMH of HTN who presented to the ED after experiencing palpitations last night. she states she was wken from sleep with the sensation fo her heart racing and developed some chest tightness. She took her BP and it was 190/110 so she called EMS. On their inital evalutation she states her HR was 180 and she was given atropine in the ambulance. On arrival, pt tachycardic, EKG showing A fib with RVR. Trop 0.084, labs otherwise unremarkable. 01/08/2022 maintained on heparin drip, prescription coverage for Eliquis being confirmed. Reports recurrent tachycardia with heart rates up into the 130s, palpitations, accompanying shortness of breath with exertion. Currently on fl ecainide, beta bree reintroduced. Echo reported normal LV function, mild pulmonary hypertension. Objective - Vital Signs Vital signs: Vital Signs Temp 97.8 F 01/08/22 13:28 Pulse 85 01/08/22 13:28 Resp 18 01/08/22 13:28 BP 114/53 01/08/22 13:28 Pulse Ox 97 01/08/22 13:28 Intake & Output 01/07/22 01/08/22 01/08/22 18:59 06:59 18:59 Intake Total 79.333 93.724 76.943 Balance 79.333 93.724 76.943 Weight 90.718 kg Intake: Intake, IV Titration 79.333 93.724 76.943 Amount Heparin Sod,Pork in 0.45% 79.333 93.724 76.943 NaCl 25,000 unit In 0.45 % NaCl 1 250ml.bag @ 11. 023 UNITS/KG/HR 10 mls/hr IV .Q24H [facility] Rx#: [id number] - Exam General: Sitting up on stretcher, NAD. Vitals reviewed Eyes: PERRL, EOMI, conjunctiva normal HENT: normocephalic, mucus membranes moist Neck: supple, no JVD Lungs: Unlabored, normal respiratory effort, no wheezes or rales CV: Regular rate and rhythm, no murmur. Peripheral pulses 2+ Abdomen: soft, nondistended, no organomegaly Skin: warm and dry. Neuro: A&Ox3, normal mood and affect - Labs CBC & Chem 7: 01/08/22 06:22 01/08/22 06:22 Labs: Abnormal Lab Results - Last 24 Hours (Table) 01/07/22 01/07/22 01/08/22 Range/Units 15:38 23:31 06:22 APTT 40.0 H 69.5 H (22.0-30.0) sec Chloride 110 H (98-107) mmol/L Glucose 118 H (74-99) mg/dL 01/08/22 Range/Units 06:22 APTT 57.0 H (22.0-30.0) sec Chloride (98-107) mmol/L Glucose (74-99) mg/dL Assessment and Plan Assessment: Paroximal atrial fibrillation with RVR, new onset, symptomatic Hypertension Glaucoma Plan continue on current medication regime ,monitoring and symptomatic treatment. [facility]. Repeat EKG pending. Antiarrhythmics adjusted, beta bree added in addition to flecainide. Discharge planning in progress for possibly later this afternoon or tomorrow, pending final DC recommendations and clearance per cardiology, improvement in symptoms upon exertion-better controlled heart rate. The impression and plan of care has been dictated as directed. : I performed a history and examination of this patient, discussed the same with the dictator. I agree with the dictator's note ,documented as a scribe. Any additional findings or plans will be noted.
[2022-01-08] MEDS ORDERED: SENNOSIDES 8.6 MG TAB PO PRN (20:05)
[2022-01-08] MEDS: GABAPENTIN 100 MG CAP PO SCH (20:18)
[2022-01-08 22:11] VITALS: RESP 18
[2022-01-09] MEDS: DILTIAZEM 125 MG in SODIUM CHLORIDE 0.9% 100 ML IV SCH (00:51)
[2022-01-09] MEDS: LEVOTHYROXINE 75 MCG TAB PO SCH (06:33)
[2022-01-09] MEDS: traMADol 50 MG TAB PO PRN (06:35)
[2022-01-09] MEDS: APIXABAN 5 MG TAB PO SCH (08:35)
[2022-01-09] MEDS: METOPROLOL SUCCINATE (ER) 25 MG TAB.ER.24H PO SCH (08:35)
[2022-01-09] MEDS: PANTOPRAZOLE 40 MG TABLET PO SCH (08:35)
[2022-01-09] MEDS: amLODIPine 10 MG TAB PO SCH (08:35)
[2022-01-09] MEDS: FLECAINIDE 50 MG TAB PO SCH (08:35)
[2022-01-09] MEDS: LATANOPROST 0.005% OPHTH DROPS 2.5 ML BTL RIGHT EYE SCH (08:40)
[2022-01-09] MEDS ORDERED: METOPROLOL SUCCINATE (ER) 25 MG TAB.ER.24H PO STA (10:24)
--- NOTE | 2022-01-09 11:58 | P.DS ---
Providers Date of admission: 01/07/22 05:30 Expected date of discharge: 01/09/22 Attending physician: Antione Richardson MD Consults: 01/07/22 05:32 Consult Physician Routine Consulting Provider: Jc Spencer Consult Reason/Comments: afibRVR Do you want consulting provider notified?: Yes Primary care physician: [facility] Course: Final Diagnoses: Paroximal atrial fibrillation with RVR, new onset, symptomatic Hypertension Glaucoma Kathrine Garcias is a 66 yo F with PMH of HTN who presented to the ED after experiencing palpitations last night. she states she was wken from sleep with the sensation fo her heart racing and developed some chest tightness. She took her BP and it was 190/110 so she called EMS. On their inital evalutation she states her HR was 180 and she was given atropine in the ambulance. On arrival, pt tachycardic, EKG showing A fib with RVR. Trop 0.084, labs otherwise unremarkable. 01/08/2022 maintained on heparin drip, prescription coverage for Eliquis being confirmed. Reports recurrent tachycardia with heart rates up into the 130s, palpitations, accompanying shortness of breath with exertion. Currently on flecainide, beta bree reintroduced. Echo reported normal LV function, mild pulmonary hypertension. Significant clinical improvement. Reporting less palpitations, heart rates in the low 100s with exertion .beta bree further increased .Denies Chest pain or shortness of breath. Cleared by cardiology for discharge. Patient will be discharged home today in stable condition with guarded prognosis. The impression and plan of care has been dictated as directed. : I performed a history and examination of this patient, discussed the same with the dictator. I agree with the dictator's note ,documented as a scribe. Any additional findings or plans will be noted. Patient Condition at Discharge: Stable Plan - Discharge Summary Discharge Rx Participant: No New Discharge Prescriptions: New Apixaban [Eliquis] 5 mg PO BID 30 Days #60 tab Metoprolol Succinate (ER) [Toprol XL] 50 mg PO DAILY #0 Metoprolol Succinate (ER) [Toprol XL] 50 mg PO DAILY 30 Days #30 tab Flecainide [Tambocor] 50 mg PO Q12HR 30 Days #60 tab Continue Pantoprazole Sodium [Protonix] 40 mg PO PC-BRKFST Acetaminophen Tab [Tylenol] 500 mg PO Q6H PRN PRN Reason: Pain Or Fever > 100.5 Vitamin D3 Drops 1 dose PO DAILY Cyclobenzaprine [Flexeril] 10 mg PO DAILY PRN PRN Reason: Muscle Spasm traMADol HCL [Ultram] 50 mg PO TID PRN PRN Reason: Pain Gabapentin [Neurontin] 100 mg PO HS amLODIPine [Norvasc] 10 mg PO DAILY Potassium Chloride [Klor-Con 20] 20 meq PO Q48H Zinc 50 mg PO DAILY Ascorbic Acid [Vitamin C] 500 mg PO DAILY Ergocalciferol [Vitamin D2 (1250 Mcg = 09708 Iu)] 1,250 mcg PO BUTLER Montelukast [Singulair] 10 mg PO HS PRN PRN Reason: allergy/asthma symptoms Latanoprost/Pf [Latanoprost 0.005% Eye Drop] 1 drop RIGHT EYE QAM Levothyroxine Sodium [Synthroid] 75 mcg PO DAILY Furosemide [Lasix] 20 mg PO Q48H Discontinued Metoprolol Tartrate [Lopressor] 25 mg PO W/SUPPER Metoprolol Tartrate [Lopressor] 37.5 mg PO QAM Discharge Medication List Pantoprazole Sodium [Protonix] 40 mg PO PC-BRKFST 06/27/17 [History] Acetaminophen Tab [Tylenol] 500 mg PO Q6H PRN 01/07/22 [History] Apixaban [Eliquis] 5 mg PO BID 30 Days #60 tab 01/07/22 [Rx] Ascorbic Acid [Vitamin C] 500 mg PO DAILY 01/07/22 [History] Cyclobenzaprine [Flexeril] 10 mg PO DAILY PRN 01/07/22 [History] Ergocalciferol [Vitamin D2 (1250 Mcg = 90376 Iu)] 1,250 mcg PO BUTLER 01/07/22 [History] Furosemide [Lasix] 20 mg PO Q48H 01/07/22 [History] Gabapentin [Neurontin] 100 mg PO HS 01/07/22 [History] Latanoprost/Pf [Latanoprost 0.005% Eye Drop] 1 drop RIGHT EYE QAM 01/07/22 [History] Levothyroxine Sodium [Synthroid] 75 mcg PO DAILY 01/07/22 [History] Montelukast [Singulair] 10 mg PO HS PRN 01/07/22 [History] Potassium Chloride [Klor-Con 20] 20 meq PO Q48H 01/07/22 [History] Vitamin D3 Drops 1 dose PO DAILY 01/07/22 [History] Zinc 50 mg PO DAILY 01/07/22 [History] amLODIPine [Norvasc] 10 mg PO DAILY 01/07/22 [History] traMADol HCL [Ultram] 50 mg PO TID PRN 01/07/22 [History] Flecainide [Tambocor] 50 mg PO Q12HR 30 Days #60 tab 01/08/22 [Rx] Metoprolol Succinate (ER) [Toprol XL] 50 mg PO DAILY #0 01/09/22 [Rx] Metoprolol Succinate (ER) [Toprol XL] 50 mg PO DAILY 30 Days #30 tab 01/09/22 [Rx] Follow up Appointment(s)/Referral(s): Jc Spencer MD [STAFF PHYSICIAN] - 1 Week Apurva Richardson DO [Primary Care Provider] - 3 Days Patient Instructions/Handouts: A-fib (Atrial Fibrillation) (ED) Activity/Diet/Wound Care/Special Instructions: Pending final DC recommendations/antiarrhythmics, clearance per cardiology
[2022-01-09 12:41] VITALS: BP 139/72; PULSE 86; TEMP 97.6
--- NOTE | 2022-01-09 12:42 | P.PN ---
Subjective this is a 66-year-old female past medical history of hypertension, peripheral vascular disease, former tobacco use. She follows in the office with Dr. Spencer. We have been asked to see in consultation for new onset atrial fibrillation. Patient present to the hospital with complaints of palpitations, some shortness of breath and chest discomfort. Patient was found to be in atrial fibrillation with RVR HR 150s. Echocardiogram revealed an EF of 5560 percent, mild mitral regurgitation, mild tricuspid regurgitation. Patient was started on Eliquis 5 mg twice a day, flecainide 50mg BID and metoprolol succinate 25mg daily 01/09/2022 Patient seen and examined at bedside, no acute distress. She denies any chest pain, shortness of breath, lightheadedness, dizziness, palpitations. However with ambulating patient states she does feel some palpitations and nursing noted to be tachycardic with ambulation in sinus rhythm. Telemetry reviewed patient is maintained in sinus mechanism. Heart rate in the 60s80s. GENERAL: Well-appearing, well-nourished and in no acute distress. NECK: Supple without JVD or thyromegaly. LUNGS: Breath sounds clear to auscultation bilaterally. Respiration equal and unlabored. No wheezes, rales or rhonchi. HEART: Regular rate and rhythm without murmurs, rubs or gallops. S1 and S2 heard . EXTREMITIES: Normal range of motion, no edema. No clubbing or cyanosis. Peripheral pulses intact. ASSESSMENT New onset Paroxysmal atrial fibrillation with RVR, maintaining sinus mechanism Hypertension Dyslipidemia History of peripheral vascular disease Former tobacco use PLAN Increase metoprolol succinate 50mg daily Continue Eliquis and flecainide From a cardiology perspective, patient is stable to be discharged today. Follow up with Dr. Spencer in 1-2 weeks. Nurse Practitioner note has been reviewed, I agree with a documented findings and plan of care. Patient was seen and examined. Objective - Vital Signs Vital signs: Vital Signs Temp 98.6 F 01/07/22 03:18 Pulse 73 01/07/22 09:54 Resp 18 01/07/22 09:54 BP 129/58 01/07/22 09:54 Pulse Ox 97 01/07/22 09:54 Intake & Output 01/06/22 01/07/22 01/07/22 18:59 06:59 18:59 Weight 90.718 kg - Labs CBC & Chem 7: 01/08/22 06:22 01/08/22 06:22 Labs: Abnormal Lab Results - Last 24 Hours (Table) 01/07/22 01/07/22 01/07/22 Range/Units 03:26 03:26 07:42 Glucose 235 H (74-99) mg/dL Plasma Lactic Acid Lon 4.2 H* (0.7-2.0) mmol/L Troponin I 0.084 H* (0.000-0.034) ng/mL 01/07/22 Range/Units 09:08 Glucose (74-99) mg/dL Plasma Lactic Acid Lon (0.7-2.0) mmol/L Troponin I 0.077 H* (0.000-0.034) ng/mL
[2022-01-10] MEDS ORDERED: METOPROLOL SUCCINATE (ER) 50 MG TAB.ER.24H PO SCH (09:00)
== END 2022-01-09 14:25 | disposition home or self-care (01) | DRG 310 ==
LOC: EC 03:17 → 3SCARD 05:30
PROVIDERS: ADMIT Family Medicine; ATTEND Family Medicine
DX: I48.0 Paroxysmal atrial fibrillation (principal); I27.20 Pulmonary hypertension, unspecified; I73.9 Peripheral vascular disease, unspecified; I10 Essential (primary) hypertension; E78.5 Hyperlipidemia, unspecified; F41.9 Anxiety disorder, unspecified; H40.9 Unspecified glaucoma; K21.9 Gastro-esophageal reflux disease without esophagitis; M19.90 Unspecified osteoarthritis, unspecified site; Z79.890 Hormone replacement therapy; Z79.899 Other long term (current) drug therapy; Z97.0 Presence of artificial eye; Z90.49 Acquired absence of other specified parts of digestive tract; Z87.19 Personal history of other diseases of the digestive system; Z90.710 Acquired absence of both cervix and uterus; Z87.42 Personal history of other diseases of the female genital tract; Z87.39 Personal history of other diseases of the musculoskeletal system and connective tissue; Z87.891 Personal history of nicotine dependence; Z86.69 Personal history of other diseases of the nervous system and sense organs; Z98.890 Other specified postprocedural states; Z88.1 Allergy status to other antibiotic agents; Z91.041 Radiographic dye allergy status; Z88.0 Allergy status to penicillin; Z88.8 Allergy status to other drugs, medicaments and biological substances; Z91.048 Other nonmedicinal substance allergy status; Z82.49 Family history of ischemic heart disease and other diseases of the circulatory system; Z82.3 Family history of stroke; Z83.3 Family history of diabetes mellitus; Z84.1 Family history of disorders of kidney and ureter
CPT/HCPCS: 36415; 80053; 83605; 83735; 83880; 84100; 84443; 84484; 85025; 85379; 85610; 85730; 93005; 93306; 96361; 96365; 96366; 96375; 96376; 99291

== ENCOUNTER 2022-10-14 06:10 | Day surgery (SDC) | payer MEDICARE, OTHER ==
[2022-10-10 10:05] VITALS: BMI 34.3
[2022-10-14 06:33] VITALS: TEMP 97.9
[2022-10-14] MEDS ORDERED: LACTATED RINGERS 1,000 ML IV ONE (06:38)
[2022-10-14] MEDS ORDERED: diphenhydrAMINE 50 MG/ML 1 ML VIAL ONE (06:51)
[2022-10-14] MEDS ORDERED: fentaNYL (PF) 50 MCG/ML 2 ML AMP ONE (07:00)
[2022-10-14] MEDS ORDERED: MIDAZOLAM 2 MG/2 ML VIAL ONE (07:00)
[2022-10-14] MEDS ORDERED: DEXAMETHASONE SOD PHOSPHATE 10 MG/ML 1 ML VIAL ONE (07:00)
[2022-10-14] MEDS ORDERED: LACTATED RINGERS 1,000 ML IV SCH (07:15)
--- NOTE | 2022-10-14 07:19 | P.PCN ---
Date of Procedure: 10/14/22 Description of Procedure: PREOPERATIVE DIAGNOSIS: Thoracic degenerative disc disease, and thoracic spinal canal stenosis POSTOPERATIVE DIAGNOSIS: Thoracic degenerative disc disease, and thoracic spinal canal stenosis Procedure: T7-T8 Epidural steroid injection under fluoroscopic guidance, 2. Thoracic epidurogram SURGEON: Joshua Oquendo ANESTHESIA: Local with 1% lidocaine, and IV sedation : Versed 1 mg, and fentanyl 75 g Benadryl 50 mg IV for ALLERGIC reactions to steroids. As per patient she is getting Benadryl for previous epidural steroid injections. ALLERGIES: IVP dye, and iodine, prednisone, adhesive tape, and erythromycin, penicillin EBL: None. Complications: None Specimens removed: None Fluoroscopic image: saved to electronic medical records PROCEDURE INDICATION: The patient had history of thoracic degenerative disc disease and thoracic spinal canal stenosis. Failed to conservative therapy. Presented for epidural steroid injection. PROCEDURE DESCRIPTION: The patient was seen and identified in the preoperative area. Risks, benefits, complications, and alternatives were discussed with the patient. The patient agreed to proceed with the procedure and signed the consent. IV was started, and vital signs were stable. Patient was taken to the procedure area, and time out was completed. The patient was placed in the prone position on procedure table and a pillow was placed under the abdomen . The lumbosacral area was prepped and draped in the usual sterile fashion. Critical pause was taken. Vital signs were closely monitored during the procedure. Using anterior-posterior fluoroscopy, the T7-T8 interlaminar space was identified, and skin and deeper tissues were localized with 1% lidocaine. Using anterior-posterior fluoroscopy, lateral fluoroscopy, and [id number] technique, a 20 gauge 3.5 Tuohy epidural needle entered the epidural space. After negative aspiration of CSF and blood with no paresthesias. Again after negative aspiration of CSF and blood with no paresthesias, 8 mL of block solution was injected into the epidural space. Block solution contained 10 mg of dexamethasone and 7 mL of preservative-free normal saline. Needle was withdrawn intact, skin was cleansed, and bandages were applied. DISPOSITION / PLANS: The patient was placed in a supine position and transferred to the recovery area in a stable condition for observation. Patient was discharged from the recovery room after meeting discharge criteria. Home discharge instructions given to the patient by the staff. The patient was reexamined prior to discharge. The patient will schedule a follow up in the clinic in 4 weeks.
[2022-10-14] MEDS ORDERED: IV FLUID CONTINUATION 1,000 ML IV ONE (07:20)
--- NOTE | 2022-10-14 07:31 | FL ---
EXAMINATION TYPE: FL guided pain mgmt statistic DATE OF EXAM: 10/14/2022 CLINICAL HISTORY: Low back pain. TECHNIQUE: Fluoroscopy. COMPARISON: None. FINDINGS: Fluoroscopic guidance was provided during pain relief procedure performed by Dr. Oquendo. A total of 6 seconds of fluoroscopic time was utilized during the procedure and 3 spot images are ac quired. Images acquired shows needle localization at the thoracic spine. IMPRESSION: As Above.
[2022-10-14 07:36] VITALS: RESP 18
[2022-10-14 07:45] VITALS: BP 116/64; PULSE 67
== END 2022-10-14 07:56 | disposition home or self-care (01) ==
LOC: ORPAIN 06:10
DX: M51.34 Other intervertebral disc degeneration, thoracic region (principal); M48.04 Spinal stenosis, thoracic region; I48.91 Unspecified atrial fibrillation; I10 Essential (primary) hypertension; E03.9 Hypothyroidism, unspecified; K21.9 Gastro-esophageal reflux disease without esophagitis; Z88.0 Allergy status to penicillin; Z88.1 Allergy status to other antibiotic agents; Z88.8 Allergy status to other drugs, medicaments and biological substances; Z91.040 Latex allergy status; Z79.890 Hormone replacement therapy; Z79.83 Long term (current) use of bisphosphonates; Z90.49 Acquired absence of other specified parts of digestive tract; Z96.649 Presence of unspecified artificial hip joint; Z98.890 Other specified postprocedural states; Z86.69 Personal history of other diseases of the nervous system and sense organs; Z79.899 Other long term (current) drug therapy
CPT/HCPCS: 62321; 99152; J2250; J1200; J1100; J3010

== ENCOUNTER → 2022-10-29 | Outpatient (CLI) | payer MEDICARE, OTHER ==
[2022-10-29 14:09] VITALS: BP 128/72; PULSE 79; RESP 18; TEMP 98
--- NOTE | 2022-10-29 14:57 | P.PN ---
Subjective Progress Note Date: 10/29/22 This is follow-up visit for this 67 years old female with a chronic history of severe midback pain she is diagnosed with thoracic radiculopathy thoracic degenerative disc disease, thoracic herniated disc disease patient had T7 8 thoracic herniated disc disease and she had thoracic epidural steroid injection done previously she reported that she had no benefit from it, she continues to sit to have severe midback pain with radiation to the right side of the chest wall, the pain is constant and increases with any activity, is currently on tramadol 50 mg every 8 hours and Tylenol 500 mg 3 times a day she tried the massage therapy for 2 weeks without any benefit her pain level is 7/10 increased with any activity to 10 over 10, he denies any motor or sensory deficit she denies any fever or night sweats she denies any change in the bowel movement or urination Objective - Vital Signs Vital signs: Vital Signs Temp 98 F 10/29/22 13:58 Pulse 79 10/29/22 13:58 Resp 18 10/29/22 13:58 BP 128/72 10/29/22 13:58 Pulse Ox 96 10/29/22 13:58 FiO2 Intake & Output 10/28/22 10/29/22 10/29/22 18:59 06:59 18:59 Weight 90.718 kg - Exam Physical Examinations : -Constitutiona : Cooperative , not in acute distress . -HEENT : nech : supple , no Lymphadenopathy , normal thyroid size . : eyes : no ptosis , no icterus, no photophobia . - neurologic : Cranial nerve II to XII intact , no focal neurological deffecit . -psychatric : alert , oriented X 3 , appropriate affect , intact judgment and insight . -Lymphatic : no Lymphadenopathy . - musculoskeltal : Cervical Spine motor stregnth in the deltoid and biceps, normal right side , normal Left side motor stregnth biceps and the wrist extensors normal right side ,normal left side . motor stregnth in the triceps muscle . normal Right side , normal Left side deep tendon reflexes normal at the biceps , normal at Brachioradialis , normal at triceps. cervical facet loading test: Positive Bilaterally Spurling test= positive Right , positive left. Neck distraction test= positive Right , positive left. Jai sign= positive right, positive left . Thoracic spine= Severe pain at the mid thoracic spine mainly on the right side and flexion extension and rotation of the torso associated with severe pain around T7 to T9 levels Lumber spine moter stegnth lower extremities ,thigh and legs 5/5 Right side , 5/5 Left side MRI of the thoracic spine= large herniated disc at T7 8 levels Assessment and Plan Plan: Assessment and plan=1-thoracic herniated disc disease T7 8 level. 2-thoracic radiculopathy. 3-thoracic spinal stenosis. She could benefit from repeat thoracic epidural steroid injection at T7 8 level right paramedian approach She has to hold Eliquis for 3 days before the procedure Time with Patient: Less than 30
== END ==
LOC: PNWHC3 13:40
PROVIDERS: ATTEND Specialist
DX: M54.14 Radiculopathy, thoracic region (principal); M51.24 Other intervertebral disc displacement, thoracic region; M48.04 Spinal stenosis, thoracic region; Z91.048 Other nonmedicinal substance allergy status; Z88.1 Allergy status to other antibiotic agents; Z91.041 Radiographic dye allergy status; Z88.0 Allergy status to penicillin; Z88.8 Allergy status to other drugs, medicaments and biological substances; Z87.891 Personal history of nicotine dependence
CPT/HCPCS: 99211

== ENCOUNTER → 2022-11-27 | Day surgery (SDC) | payer MEDICARE, OTHER ==
[~2022-11-27] MED LIST changes: -BACITRACIN 50,000 UNIT, POLYMYXIN B 500,000 UNIT in SODIUM CHLORIDE 0.9% IRRIGATIO 1,00... IRRIGATION ONE; +IV FLUID CONTINUATION 1,000 ML IV ONE; +LACTATED RINGERS 1,000 ML IV ONE; +LACTATED RINGERS 1,000 ML IV SCH; +LIDOCAINE 1% (10MG/ML) FOR IV START INTRADERMA PRN; +MIDAZOLAM 2 MG/2 ML VIAL ONE; -Pre Op ABX Message 1 EACH MISC MISCELLANE ONE; +diphenhydrAMINE 50 MG/ML 1 ML VIAL IVP ONE; +diphenhydrAMINE 50 MG/ML 1 ML VIAL ONE; +fentaNYL (PF) 50 MCG/ML 2 ML AMP ONE; +methylPREDNISolone ACETATE 40 MG/ML 1 ML VIAL ONE
[2022-11-27 07:09] VITALS: TEMP 97.6
--- NOTE | 2022-11-27 07:35 | P.PCN ---
Date of Procedure: 11/27/22 Procedure(s) Performed: PREOPERATIVE DIAGNOSIS: 1- thoracic herniated Disc Diseases 2-thoracic radiculopathy. POSTOPERATIVE DIAGNOSIS: Same as preop diagnosis. PROCEDURE 1. Thoracic epidural steroid injection under fluoroscopic guidance at the T7-8 level. (Fluoroscopy imaging was available in radiology department) ANESTHESIA: moderate sedation with intravenous Versed 2 mg ,and fentanyle 50 Mcg Sedation start time : 0 723 Sedation end time : 0730 EBL: Minimal PROCEDURE INDICATION: The patient with low back pain and radiculitis symptoms unresponsive to conservative treatment. Fluoroscopy was used to optimize visualization of the needle placement and to maximize safety. PROCEDURE DESCRIPTION / TECHNIQUE: The patient was seen and identified in the preoperative area. Risks, benefits, complications including but not limited to infections ,bleeding ,allergic reaction to the medications ,nerve damage and not complete pain releife , and alternatives were discussed with the patient. The patient agreed to proceed with the procedure and signed the consent. IV was started, and vital signs were stable. Patient was taken to the OR and time out was completed. The patient was placed in the prone position on procedure table and a pillow was placed under the abdomen to reduce lumbar lordosis. The lumbosacral area was prepped and draped in the usual sterile fashion.ere closely monitored during the procedure. Conscious sedation was used during the procedure to decrease patients anxiety. Vital signs was monitered during the entire procedure. Using anterior-posterior fluoroscopy, the T7-8 ( Right paramedial ) interlaminar space was identified and the skin over this site was marked and then infiltrated with 1% lidocaine subcutaneously. Subsequently, a 20-gauge Tuohy epidural needle was inserted and advanced toward the epidural space using the ``Loss of resistance technique and guided by AP and lateral fluoroscopy., after negative aspiration for blood and CSF and in the absence of paresthesias. Again after negative aspiration, a 6 ml mixture containing 40 mg of Depo-medrol ( Preservetive Free ), and 2 ml of preservative free Normal Saline, and 2 ml of preservative free lidocaine 1% solution was injected and a washout of epidurogram was seen. Needle was withdrawn intact, skin was cleansed, and bandages were applied. COMPLICATIONS: None DISPOSITION / PLANS: The patient was placed in a supine position and transferred to the recovery area in a stable condition for observation. There was no evidence of lower extremity motor or sensory deficit after the procedure. Patient was discharged from the recovery room after meeting discharge criteria. Home discharge instructions were given to the patient by the staff. The patient was reexamined prior to discharge. The patient will schedule a follow up in the clinic in 2-4 weeks. Isovue was not injected, because patient had ALLERGY to IVP dye. Patient take Eliquis , and the last dose was taken more than 72 hours ago.
[2022-11-27 07:49] VITALS: RESP 16
[2022-11-27 08:11] VITALS: BP 108/72; PULSE 72
--- NOTE | 2022-11-27 08:13 | FL ---
Fluoroscopy History: T-Spine Epid Inj 13sec fluoro time...2 images to PACS.
== END ==
LOC: ORPAIN 06:26
PROVIDERS: ATTEND Specialist
DX: M51.14 Intervertebral disc disorders with radiculopathy, thoracic region (principal); Z88.0 Allergy status to penicillin; Z91.041 Radiographic dye allergy status
CPT/HCPCS: 62321; J2250; J1200; J1030; J3010

== ENCOUNTER 2023-01-21 11:48 | Emergency (ER) | payer MEDICARE, OTHER ==
[2023-01-21 12:08] VITALS: TEMP 98
[2023-01-21] MEDS ORDERED: SODIUM CHLORIDE 0.9% 500 ML 500 ML IV STA (13:01)
--- NOTE | 2023-01-21 13:07 | ED ---
Arrhythmia/Palpitations HPI - General Chief Complaint: Arrhythmia/Palpitations Stated Complaint: SOB, lightheaded Time Seen by Provider: 01/21/23 12:50 Source: patient, family, RN notes reviewed, old records reviewed Mode of arrival: wheelchair Limitations: no limitations - History of Present Illness Initial Comments: This is a nontoxic-appearing 67-year-old female that presents to the emergency room with complaints of shortness of breath and palpitations off and on for the past 2-3 days. States that did see her bell maker last week Dr. Spencer who changed her furosemide to 20 mg daily instead of every other day. She is not taking any potassium supplementation. He is scheduling her for an ECHO. She states also has been having multiple episodes of diarrhea that started last night, brown and watery. No abnormal bleeding. No abdominal pain. No fevers. No sick contacts. She denies any chest pain. Is short of breath with exertion. States that she stopped taking her eliquis last night for an upcoming facet block with her pain management team scheduled for Thursday. MD Complaint: palpitations, atrial fibrillation -: days(s) (3) Context: occurred during rest Arrhythmia History: atrial fibrillation, on anti-coagulants (stopped last night for upcoming procedure) Associated Symptoms: other (diarrhea) - Related Data Home Medications Medication Instructions Recorded Confirmed Pantoprazole Sodium [Protonix] 40 mg PO DAILY 06/27/17 01/21/23 Latanoprost/Pf [Latanoprost 0.005% 1 drop RIGHT EYE DAILY 01/07/22 01/21/23 Eye Drop] Levothyroxine Sodium [Synthroid] 75 mcg PO DAILY 01/07/22 01/21/23 amLODIPine [Norvasc] 10 mg PO DAILY 01/07/22 01/21/23 traMADol HCL [Ultram] 50 mg PO TID 01/07/22 01/21/23 Losartan Potassium [Cozaar] 100 mg PO DAILY 10/10/22 01/21/23 Rosuvastatin [Crestor] 10 mg PO MOTH 10/10/22 01/21/23 Cyclobenzaprine [Flexeril] 10 mg PO HS PRN 11/24/22 01/21/23 Ergocalciferol [Vitamin D2 (1250 1,250 mcg PO SA 11/24/22 01/21/23 Mcg = 93428 Iu)] Apixaban [Eliquis] 5 mg PO BID 01/21/23 01/21/23 Furosemide [Lasix] 20 mg PO DAILY 01/21/23 01/21/23 Previous Rx's Medication Instructions Recorded Flecainide [Tambocor] 50 mg PO Q12HR 30 Days #60 tab 01/08/22 Metoprolol Succinate (ER) [Toprol 50 mg PO DAILY 30 Days #30 tab 01/09/22 XL] Allergies Allergy/AdvReac Type Severity Reaction Status Date / Time adhesive tape Allergy miller skin Verified 01/21/23 15:49 erythromycin base Allergy Nausea & Verified 01/21/23 15:49 Vomiting Iodinated Contrast Media Allergy Swelling Verified 01/21/23 15:49 [Iodinated Contrast- Oral and IV Dye] Iodine and Iodide Containing Allergy Swelling Verified 01/21/23 15:49 Produc Penicillins Allergy Unknown Verified 01/21/23 15:49 prednisone Allergy facial Verified 01/21/23 15:49 swelling contrast dye Allergy Swelling Uncoded 01/21/23 15:49 silk tape Allergy miller skin Uncoded 01/21/23 15:49 steroid injection Allergy facial Uncoded 01/21/23 15:49 swelling Review of Systems ROS Statement: Those systems with pertinent positive or pertinent negative responses have been documented in the HPI. ROS Other: All systems not noted in ROS Statement are negative. 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 History of Any Multi-Drug Resistant Organisms: None Reported Past Surgical History: Back Surgery, Cholecystectomy, Hysterectomy, Orthopedic Surgery Additional Past Surgical History / Comment(s): Posterior lumbar decompression/fusion, L eye prosthesis, R shoulder scopy/ligament repair, skin cancer removed from face, colonoscopy/benign polyp. Past Anesthesia/Blood Transfusion Reactions: No Reported Reaction Past Psychological History: Anxiety Smoking Status: Former smoker Past Alcohol Use History: None Reported Past Drug Use History: None Reported - Past Family History Mother Family Medical History: Congestive Heart Failure (CHF), Myocardial Infarction ([place]), Renal Disease Father Family Medical History: CVA/TIA, Diabetes Mellitus General Exam Limitations: no limitations General appearance: alert, in no apparent distress Head exam: Present: atraumatic, normocephalic Eye exam: Absent: scleral icterus, conjunctival injection, periorbital swelling Neck exam: Absent: tenderness, meningismus Respiratory exam: Present: normal lung sounds bilaterally. Absent: respiratory distress, accessory muscle use Cardiovascular Exam: Present: regular rate, irregular rhythm GI/Abdominal exam: Present: soft. Absent: distended, tenderness, guarding, rebound, rigid Extremities exam: Present: full ROM, normal capillary refill. Absent: tenderness, pedal edema, joint swelling, calf tenderness Back exam: Absent: tenderness, CVA tenderness (R), CVA tenderness (L), rash noted Neurological exam: Present: alert, oriented X3 Psychiatric exam: Present: normal affect, normal mood Skin exam: Present: warm, dry, normal color. Absent: cyanosis, diaphoretic, petechiae, pallor Course Vital Signs 01/21/23 01/21/23 12:05 14:45 Temperature 98.0 F Pulse Rate 89 71 Respiratory 20 18 Rate Blood Pressure 166/72 136/61 O2 Sat by Pulse 95 97 Oximetry EKG Findings - EKG Results: EKG: sinus rhythm (Sinus rhythm with a ventricular rate of 81, TX interval 0.154, QRS 0.110, QTC 0.430, normal axis; previous EKG 01/07/2022 shows A. fib with RVR with a rate of 152) Medical Decision Making - Medical Decision Making EKG shows Sinus rhythm with a ventricular rate of 81, TX interval 0.154, QRS 0.110, QTC 0.430, normal axis; previous EKG 01/07/2022 shows A. fib with RVR with a rate of 152 Vital signs are stable. CBC normal. Electrolytes are unremarkable. D-dimer is negative. Troponin negative at 0.012. TSH is 1.180. Potassium of 4.1. Chest x-ray interpreted by me shows no evidence of consolidation, trachea is midline. Cardiac silhouette within normal size. Radiologist interpretation no acute process. Patient was given 500 mL bolus due to complaints of multiple episodes of diarrhea yesterday. Patient has no chest pain. She was directed to follow up with her bell maker and primary care doctor this week. Return to the emergency room with any new or concerning symptoms. Continue her previously prescribed medications. Case discussed with Dr. Magana Was pt. sent in by a medical professional or institution (, [facility], INTERVENTIONAL TECHNOLOGIST, urgent care, hospital, or fdc...) When possible be specific @ -No Did you speak to anyone other than the patient for history (EMS, parent, family, police, friend...)? What history was obtained from this source @ -No Did you review nursing and triage notes (agree or disagree)? Why? @ -I reviewed and agree with nursing and triage notes Were old charts reviewed (outside hosp., previous admission, EMS record, old EKG, old radiological studies, urgent care reports/EKG's, fdc records)? Report findings @ -Yes previous EKG Differential Diagnosis (chest pain, altered mental status, abdominal pain women, abdominal pain men, vaginal bleeding, weakness, fever, dyspnea, syncope, headache, dizziness, GI bleed, back pain, seizure, CVA, palpatations, mental health, musculoskeletal)? @ -Differential Palpitations Ventricular arrhythmias, atrial arrhythmias, myocardial infarction, anemia, thyrotoxicosis, electrolyte imbalance, hypokalemia, pulmonary embolism, pulmonary disease, drugs, alcohol, anxiety, stress.... This is not meant to be an all-inclusive list. EKG interpreted by me (3pts min.). @ -As above X-rays interpreted by me (1pt min.). @ -Yes as above CT interpreted by me (1pt min.). @ -None done U/S interpreted by me (1pt. min.). @ -None done What testing was considered but not performed or refused? (CT, X-rays, U/S, labs)? Why? @ -None What meds were considered but not given or refused? Why? @ -None Did you discuss the management of the patient with other professionals (professionals i.e. , KRIST[facility], INTERVENTIONAL TECHNOLOGIST, lab, RT, psych nurse, manager social responsibility, licensed architect, teacher, commercial credit officer, manager rn case)? Give summary @ -No Was smoking cessation discussed for >3mins.? @ -No Was critical care preformed (if so, how long)? @ -No Were there social determinants of health that impacted care today? How? (Homelessness, low income, unemployed, alcoholism, drug addiction, transportation, low edu. Level, literacy, decrease access to med. care, long term, rehab)? @ -No Was there de-escalation of care discussed even if they declined (Discuss DNR or withdrawal of care, Hospice)? DNR status @ -No What co-morbidities impacted this encounter? (DM, HTN, Smoking, COPD, CAD, Cancer, CVA, ARF, Chemo, Hep., AIDS, mental health diagnosis, sleep apnea, morbid obesity)? @ -A. fib, GERD, hypertension, hypothyroidism Was patient admitted / discharged? Hospital course, mention meds given and route, prescriptions, significant lab abnormalities, going to OR and other pertinent info. @ -Discharged Undiagnosed new problem with uncertain prognosis? @ -No Drug Therapy requiring intensive monitoring for toxicity (Heparin, Nitro, Insulin, Cardizem)? @ -No Were any procedures done? @ -No Diagnosis/symptom? @ -Palpitations, shortness of breath, history of atrial fibrillation Acute, or Chronic, or Acute on Chronic? @ -Acute Uncomplicated (without systemic symptoms) or Complicated (systemic symptoms)? @ -Uncomplicated Side effects of treatment? @ -No Exacerbation, Progression, or Severe Exacerbation? @ -No Poses a threat to life or bodily function? How? (Chest pain, [place], [place], pneumonia, PE, COPD, DKA, ARF, appy, cholecystitis, CVA, Diverticulitis, Homicidal, Suicidal, threat to staff... and all critical care pts) @ -No - Lab Data Result diagrams: 01/21/23 13:13 01/21/23 13:13 Lab Results 01/21/23 01/21/23 01/21/23 Range/Units 13:13 13:13 13:13 WBC 7.0 (3.8-10.6) k/uL RBC 5.27 (3.80-5.40) m/uL Hgb 15.6 (11.4-16.0) gm/dL Hct 45.1 (34.0-46.0) % MCV 85.6 (80.0-100.0) fL MCH 29.5 (25.0-35.0) pg MCHC 34.5 (31.0-37.0) g/dL RDW 13.1 (11.5-15.5) % Plt Count 311 (150-450) k/uL MPV 7.3 Neutrophils % 75 % Lymphocytes % 18 % Monocytes % 4 % Eosinophils % 1 % Basophils % 1 % Neutrophils # 5.2 (1.3-7.7) k/uL Lymphocytes # 1.2 (1.0-4.8) k/uL Monocytes # 0.3 (0-1.0) k/uL Eosinophils # 0.1 (0-0.7) k/uL Basophils # 0.0 (0-0.2) k/uL PT 10.0 (9.0-12.0) sec INR 0.9 (<1.2) APTT 23.4 (22.0-30.0) sec D-Dimer 0.23 (<0.60) mg/L FEU Sodium 143 (137-145) mmol/L Potassium 4.1 (3.5-5.1) mmol/L Chloride 107 (98-107) mmol/L Carbon Dioxide 29 (22-30) mmol/L Anion Gap 7 mmol/L BUN 14 (7-17) mg/dL Creatinine 0.78 (0.52-1.04) mg/dL Est GFR (CKD-EPI)AfAm >90 (>60 ml/min/1.73 sqM) Est GFR (CKD-EPI)NonAf 79 (>60 ml/min/1.73 sqM) Glucose 134 H (74-99) mg/dL Calcium 9.1 (8.4-10.2) mg/dL Magnesium 2.0 (1.6-2.3) mg/dL Total Bilirubin 0.4 (0.2-1.3) mg/dL AST 32 (14-36) U/L ALT 37 H (4-34) U/L Alkaline Phosphatase 80 (38-126) U/L Troponin I (0.000-0.034) ng/mL Total Protein 7.3 (6.3-8.2) g/dL Albumin 4.2 (3.5-5.0) g/dL TSH 1.180 (0.465-4.680) mIU/L 01/21/23 Range/Units 13:13 WBC (3.8-10.6) k/uL RBC (3.80-5.40) m/uL Hgb (11.4-16.0) gm/dL Hct (34.0-46.0) % MCV (80.0-100.0) fL MCH (25.0-35.0) pg MCHC (31.0-37.0) g/dL RDW (11.5-15.5) % Plt Count (150-450) k/uL MPV Neutrophils % % Lymphocytes % % Monocytes % % Eosinophils % % Basophils % % Neutrophils # (1.3-7.7) k/uL Lymphocytes # (1.0-4.8) k/uL Monocytes # (0-1.0) k/uL Eosinophils # (0-0.7) k/uL Basophils # (0-0.2) k/uL PT (9.0-12.0) sec INR (<1.2) APTT (22.0-30.0) sec D-Dimer (<0.60) mg/L FEU Sodium (137-145) mmol/L Potassium (3.5-5.1) mmol/L Chloride (98-107) mmol/L Carbon Dioxide (22-30) mmol/L Anion Gap mmol/L BUN (7-17) mg/dL Creatinine (0.52-1.04) mg/dL Est GFR (CKD-EPI)AfAm (>60 ml/min/1.73 sqM) Est GFR (CKD-EPI)NonAf (>60 ml/min/1.73 sqM) Glucose (74-99) mg/dL Calcium (8.4-10.2) mg/dL Magnesium (1.6-2.3) mg/dL Total Bilirubin (0.2-1.3) mg/dL AST (14-36) U/L ALT (4-34) U/L Alkaline Phosphatase (38-126) U/L Troponin I <0.012 (0.000-0.034) ng/mL Total Protein (6.3-8.2) g/dL Albumin (3.5-5.0) g/dL TSH (0.465-4.680) mIU/L Disposition Clinical Impression: Palpitations, Shortness of breath, History of atrial fibrillation Disposition: HOME SELF-CARE Condition: Good Instructions (If sedation given, give patient instructions): Heart Palpitations (ED) Additional Instructions: Continue your previously prescribed medications. Contact your primary care doctor tomorrow morning to notify him of your symptoms and your visit to the ER today. Return to the emergency room with any new or concerning symptoms. Is patient prescribed a controlled substance at d/c from ED?: No Referrals: Apurva Richardson DO [Primary Care Provider] - 1-2 days Time of Disposition: 14:33
[2023-01-21 13:32] LABS: Basophils % (A) 1 %; Eosinophils # (A) 0.1 k/uL (0-0.7); Eosinophils % (A) 1 %; HCT 45.1 % (34.0-46.0); HGB 15.6 gm/dL (11.4-16.0); Lymphocytes # (A) 1.2 k/uL (1.0-4.8); Lymphocytes % (A) 18 %; MCH 29.5 pg (25.0-35.0); MCHC 34.5 g/dL (31.0-37.0); MCV 85.6 fL (80.0-100.0); Mean Platelet Volume 7.3; Monocytes # (A) 0.3 k/uL (0-1.0); Monocytes % (A) 4 %; Neutrophils # (A) 5.2 k/uL (1.3-7.7); Neutrophils % (A) 75 %; Platelet Count 311 k/uL (150-450); RBC 5.27 m/uL (3.80-5.40); RDW 13.1 % (11.5-15.5)
[2023-01-21 13:34] LABS: ALT 37 U/L (4-34); AST 32 U/L (14-36); African American GFR (CKD) >90 (>60 ml/min/1.73 sqM); Albumin 4.2 g/dL (3.5-5.0); Alkaline Phosphatase 80 U/L (38-126); Anion Gap 7 mmol/L; Blood Urea Nitrogen 14 mg/dL (7-17); Calcium 9.1 mg/dL (8.4-10.2); Carbon Dioxide 29 mmol/L (22-30); Chloride 107 mmol/L (98-107); Glucose 134 mg/dL (74-99); Non-African American GFR(CKD) 79 (>60 ml/min/1.73 sqM); Potassium 4.1 mmol/L (3.5-5.1); Sodium 143 mmol/L (137-145); Total Bilirubin 0.4 mg/dL (0.2-1.3); Total Protein 7.3 g/dL (6.3-8.2)
[2023-01-21 13:36] LABS: INR 0.9 (<1.2); Partial Thromboplastin Time 23.4 sec (22.0-30.0)
--- NOTE | 2023-01-21 13:40 | XR ---
EXAMINATION TYPE: XR chest 2V DATE OF EXAM: 01/21/2023 COMPARISON: NONE TECHNIQUE: PA and lateral views submitted. HISTORY: irregular heart rhythm FINDINGS: The lungs are clear and there is no pneumothorax, pleural effusion, or focal pneumonia. Heart size normal and no overt failure. Osseous structures demonstrate hypertrophic and degenerative changes of the spine. Postsurgical change involving the shoulder. Surgical clips in the abdomen. No overt failur e. IMPRESSION: 1. No acute process.
[2023-01-21 14:47] VITALS: BP 136/61; PULSE 71; RESP 18
== END 2023-01-21 14:46 | disposition home or self-care (01) ==
LOC: EC 11:48
DX: I48.91 Unspecified atrial fibrillation (principal); I10 Essential (primary) hypertension; M19.90 Unspecified osteoarthritis, unspecified site; K21.9 Gastro-esophageal reflux disease without esophagitis; E03.9 Hypothyroidism, unspecified; Z79.01 Long term (current) use of anticoagulants; Z79.890 Hormone replacement therapy; Z79.899 Other long term (current) drug therapy; Z87.891 Personal history of nicotine dependence; Z88.0 Allergy status to penicillin; Z88.1 Allergy status to other antibiotic agents; Z88.8 Allergy status to other drugs, medicaments and biological substances; Z91.048 Other nonmedicinal substance allergy status; Z91.041 Radiographic dye allergy status
CPT/HCPCS: 36415; 71046; 80053; 83735; 84443; 84484; 85025; 85379; 85610; 85730; 93005; 99285

== ENCOUNTER 2023-01-23 06:04 | Day surgery (SDC) | payer MEDICARE, OTHER ==
[2023-01-23] MEDS ORDERED: LIDOCAINE 1% (10MG/ML) FOR IV START INTRADERMA PRN (06:14)
[2023-01-23] MEDS ORDERED: LACTATED RINGERS 1,000 ML IV SCH (06:14)
[2023-01-23 06:25] VITALS: TEMP 98.5
[2023-01-23] MEDS ORDERED: diphenhydrAMINE 50 MG/ML 1 ML VIAL ONE (06:44)
[2023-01-23] MEDS ORDERED: diphenhydrAMINE 50 MG/ML 1 ML VIAL IVP ONE (06:48)
[2023-01-23] MEDS ORDERED: MIDAZOLAM 2 MG/2 ML VIAL ONE (06:53)
[2023-01-23] MEDS ORDERED: methylPREDNISolone ACETATE 40 MG/ML 1 ML VIAL ONE (06:53)
[2023-01-23] MEDS ORDERED: fentaNYL (PF) 50 MCG/ML 2 ML AMP ONE (06:53)
[2023-01-23] MEDS ORDERED: ROPIVACAINE 5 MG/ML 20 ML AMPULE ONE (06:53)
--- NOTE | 2023-01-23 07:18 | P.PCN ---
Date of Procedure: 01/23/23 Procedure(s) Performed: PREOPERATIVE DIAGNOSIS : 1- Thoracic spondylosis with Facet Arthropathy without myelopathy . 2-thoracic herniated disc disease POSTOPERATIVE DIAGNOSIS: Same as preop diagnosis. PROCEDURE: Diagnostic bilateral T7 ,T8 ,T9 medial branch block under f luoroscopy guidance(fluoroscopy images available in the radiology Department ) ( To target the facet joint between bilateral T7- 8, and T8- 9) ANESTHESIA:, Monitored anesthesia care as per anesthesia department. EBL: Minimal COMPLICATION: None PROCEDURE INDICATION: Chronic low back pain secondary to Facet arthropathy unresponsive to conservative treatment. PROCEDURE DESCRIPTION: the patient was seen and identified in the preop holding area , risks and benefits and possible complications of the procedure and alternative were discussed with the patient, and the patient agreed to proceed with the procedure and signed the consent and vital signs monitored during the procedure and fluoroscopy was used to maximize the benefit and accuracy of the needle placement, and sedation was given to decrease patient anxiety, patient was taken to the procedure room and placed in prone position vital signs monitored in the back prepped with chlorhexidine X3 then under strict sterile technique using a right oblique fluoroscopy ,the junction of the transverse process and the superior articulating process of the right T7, T8 ,T9 vertebra which corresponding to the fluoroscopy image of the eye of the [place] dog on the block side for the medial branches and subsequently , after local infiltration of skin and subcu tissuies with Ropivacaine 0.5 % , one mL at each level ,then 22-gauge Quincke-type needles , 3 needle was used , each one of them placed at the junction of the base of the transverse process and the superior articular process at the appropriate level, and the needle was advanced until the periosteum contacted, needle placement confirmed with AP oblique and lateral view and after appropriate needle placement confirmed, and after negative aspiration for heme and CSF and there was no paresthesia 1-1/2 mL of Ropivacaine 0.5% mixed with 20 mg Depo-Medrol , then half mL injected at each level after negative aspiration the needle subsequently removed and the same procedure repeated for the left side at left side at T7, T8 ,T9 levels. At the end of the procedure and the needles removed and a bandage applied after the skin was cleaned the cleaning solution patient taken to recovery room in stable condition and monitors in the recovery room for 20-30 minutes and discharged home in stable condition after discharge criteria met and patient will follow up with the pain clinic in 2-4 weeks
[2023-01-23] MEDS ORDERED: IV FLUID CONTINUATION 1,000 ML IV ONE (07:22)
[2023-01-23 07:43] VITALS: BP 127/78; PULSE 78; RESP 18
--- NOTE | 2023-01-23 08:03 | FL ---
Intraoperative/procedural fluoroscopic services were provided for bilateral thoracic facet block. Tot al fluoroscopy time is 40 seconds with a total of 4 submitted images to PACS. Total DAP 0.51996. Ple ase see the operative note for further details.
== END 2023-01-23 07:55 | disposition home or self-care (01) ==
LOC: ORPAIN 06:04
PROVIDERS: ATTEND Specialist
DX: M51.24 Other intervertebral disc displacement, thoracic region (principal); M47.814 Spondylosis without myelopathy or radiculopathy, thoracic region; G89.29 Other chronic pain; I10 Essential (primary) hypertension; I48.91 Unspecified atrial fibrillation; E03.9 Hypothyroidism, unspecified; K21.9 Gastro-esophageal reflux disease without esophagitis; F41.9 Anxiety disorder, unspecified; Z88.0 Allergy status to penicillin; Z88.8 Allergy status to other drugs, medicaments and biological substances; Z91.048 Other nonmedicinal substance allergy status; Z91.041 Radiographic dye allergy status; Z87.891 Personal history of nicotine dependence; Z79.890 Hormone replacement therapy; Z79.899 Other long term (current) drug therapy; Z79.01 Long term (current) use of anticoagulants
CPT/HCPCS: 64490; 64491; J2250; J1200; J1030; J3010; J2795

== ENCOUNTER → 2023-02-11 | Outpatient (CLI) | payer MEDICARE, OTHER ==
--- NOTE | 2023-02-11 14:59 | P.PAINPG ---
PQRS Measure Charge Sheet Comment: A 67 yr old female w at side with a history of severe and chronic mid back secondary to thoracic DDD and spondylosis with facet arthropathy without myelopathy presents today for evaluation s/p BL facet block of the medial branches T7-T8, T8-T9 #1. Pt states she experienced 100 % pain relief x 4 hrs s/p procedure. Pain level is provoked at 6 /10 in intensity, constant, localized in the thoracic spine, tight in character w shooting towards the flanks. Pain is provoked by stainding. Pain is alleviated with chiropractic treatments ended when she had a fusion, massage therapy semi weekly which she is currently in, medications, repositioning and rest. Interventional pain procedures completed include TESI T7-8 x1, BL MBB T7-T9 x1 Patient is currently on Tramadol, Tyl Patient denies any side effects of the medication(s), denies excessive drowsiness or sleepiness, denies suicidal ideation and reports that the current pain medication is helping to control the pain and improve activities of daily living. Patient denies any motor or sensory deficits. Patient denies any fever or night sweats, denies any change in the bowel movements or urination. Physical Examination: -Constitutional: Cooperative. Not in acute distress . - Neurologic: Cranial nerve II to XII intact. No focal neurological def icits. - Psychatric: Alert & oriented x 3. Matching mood & appropriate affect. Judgment and insight intact. - Musculoskeletal: Cervical spine: Muscle bulk/ tone/ strength in the bilateral upper extremities normal Vertebral body tenderness to palpation over Spurling test positive Distraction test positive Facet loading test positive TTP Thoracic spine Muscle bulk / tone/ strength in the bilateral paraspinal muscles normal Vertebral body tender to palpation over Facet loading test positive TTP over BL T7-T8, T8-T9 facets Lumbar spine: Motor bulk/ tone/ strength lower extremities , thigh and legs : 5/5 Deep tendon reflexes : Normal Knee Jerk. Normal Ankle Jerk . Vertebral body tenderness to palpation over Lumbar Facet Loading Test positive Straight Leg Raise: positive at 30 degrees right side/ left side Gaenslen's Test positive Sacral spine : Severe tenderness over the Sacroiliac joint: right side / left side Range of motion: Flexion of the lumbar spine <60 degrees Range of motion: Extension of the lumbar spine <20 degrees Gaenslen's Test positive right side / left side Too test: positive right side / left side Thigh Thrust Test positive right side / left side Sacral Thrust Test positive right side / left side Assessment and plan: Chronic LBP secondary to lumbar DDD, spondylosis with facet arthropathy without myelopathy Recommendation of BL facet block of the medial branches T7-T8, T8-T9 #2. May need a series of injections, up until RFA, for optimal pain relief. Risks, benefits of procedure discussed and pt verbalized understanding. Admits to anticoagulant use or medical history of diabetes. Protocol for discontinuation/ continuation of medications yolanda procedure discussed. All questions answered. I have spent less than 30 minutes on patient care today. Dr Duran was a vailable by phone for the evaluation of this patient. The time was used to review the medical records including relevant urine studies and Prescription history (MAPs), review of the available imaging, evaluation and examination of the patient, coordination of care with the medical staff and if applicable referring physicians, as well as creation of the medical record PQRS Narrative: Smoking Status Former smoker Hx Alcohol Use (MH) No Home Medications: Ambulatory Orders Pantoprazole Sodium [Protonix] 40 mg PO DAILY 06/27/17 Latanoprost/Pf [Latanoprost 0.005% Eye Drop] 1 drop RIGHT EYE DAILY 01/07/22 Levothyroxine Sodium [Synthroid] 75 mcg PO DAILY 01/07/22 amLODIPine [Norvasc] 10 mg PO DAILY 01/07/22 traMADol HCL [Ultram] 50 mg PO TID 01/07/22 Flecainide [Tambocor] 50 mg PO Q12HR 30 Days #60 tab 01/08/22 Metoprolol Succinate (ER) [Toprol XL] 50 mg PO DAILY 30 Days #30 tab 01/09/22 Losartan Potassium [Cozaar] 100 mg PO DAILY 10/10/22 Rosuvastatin [Crestor] 10 mg PO MOTH 10/10/22 Cyclobenzaprine [Flexeril] 10 mg PO HS PRN 11/24/22 Ergocalciferol [Vitamin D2 (1250 Mcg = 75241 Iu)] 1,250 mcg PO SA 11/24/22 Apixaban [Eliquis] 5 mg PO BID 01/21/23 Furosemide [Lasix] 20 mg PO DAILY 01/21/23 Controlled Substance Measures - Controlled Substance Measures Is patient prescribed a controlled substance at discharge?: No
[2023-02-11 15:06] VITALS: BP 134/69; PULSE 71; RESP 18; TEMP 98.3
== END ==
LOC: PNWHC3 12:42
PROVIDERS: ATTEND Specialist
DX: M51.24 Other intervertebral disc displacement, thoracic region (principal); M47.816 Spondylosis without myelopathy or radiculopathy, lumbar region; G89.29 Other chronic pain; Z79.891 Long term (current) use of opiate analgesic; Z88.1 Allergy status to other antibiotic agents; Z91.048 Other nonmedicinal substance allergy status; Z91.041 Radiographic dye allergy status; Z88.0 Allergy status to penicillin; Z87.891 Personal history of nicotine dependence
CPT/HCPCS: 99211

== ENCOUNTER → 2023-03-13 | Day surgery (SDC) | payer MEDICARE, OTHER ==
[2023-03-12 08:22] VITALS: BMI 34.3
[~2023-03-13] MED LIST changes: -IV FLUID CONTINUATION 1,000 ML IV ONE; +IV FLUID CONTINUATION 700 ML IV ONE; -LACTATED RINGERS 1,000 ML IV ONE; -LIDOCAINE 1% (10MG/ML) FOR IV START INTRADERMA PRN; +ROPIVACAINE 5 MG/ML 20 ML AMPULE ONE; -diphenhydrAMINE 50 MG/ML 1 ML VIAL IVP ONE; -diphenhydrAMINE 50 MG/ML 1 ML VIAL ONE; -fentaNYL (PF) 50 MCG/ML 2 ML AMP ONE; -methylPREDNISolone ACETATE 40 MG/ML 1 ML VIAL ONE
[2023-03-13 08:18] VITALS: TEMP 97.2
--- NOTE | 2023-03-13 08:30 | P.PCN ---
Date of Procedure: 03/13/23 Description of Procedure: Procedure: Thoracic Medial Branch Block at bilateral T7-T8 and T8-T9 #2 Diagnosis: Thoracic spondylosis ANESTHESIA: See anesthesia record Imaging: Fluoroscopy was used, images where saved to the medical record Procedure description: The patient was seen and examined in the [facility]. Procedure risks and benefits were fully reviewed with the patient. The patient understands this is a diagnostic if local only is used, as will be the case today. The goal of the procedure is to inject medication onto the medial branch or small nerves that innervate the facet joints. In this way, we can hopefully identify which of these joints, if any, may be contributing to their pain. Informed consent for procedure was obtained. The patient was taken into the office fluoroscopy procedure room and placed prone on the table. A pillow was placed under the abdomen to reduce lumbar lordosis. Vital signs were closely monitored during the procedure. The skin over the area was prepped with Betadine X 3 and draped in usual sterile manner. Sterile technique was observed throughout procedure. Under biplanar fluoroscopic guidance, the target injection area of the bilateral T7, T8, T9 where targeted. A 25 gauge 3 1/2 inch spinal needle was then placed at the medial and superior aspect of the pedicle of the targeted level. Aspiration for blood and CSF was negative. 1 cc of 0.5% marcaine was injected into the targeted areas separately. [place] were withdrawn intact. No complications were noted during the procedure. Disposition: The patient tolerated the procedure well. The patient was placed in supine position and transferred to the recovery area for observation and remained stable until discharged home. Home discharge instructions were given to the patient by the staff. The patient will schedule a follow up as directed.
--- NOTE | 2023-03-13 08:38 | FL ---
EXAMINATION TYPE: FL guidance operating room DATE OF EXAM: 03/13/2023 FLUOROSCOPY Fluoroscopy time of 15 seconds was used during thoracic facet block. 1 image/s document/s the proced ure. DOSE AREA PRODUCT (DAP) UGY*M,MGY*CM: 0.73221
[2023-03-13 08:58] VITALS: BP 130/75; PULSE 70; RESP 16
== END ==
LOC: ORPAIN 07:39
PROVIDERS: ATTEND Anesthesiology
DX: M47.814 Spondylosis without myelopathy or radiculopathy, thoracic region (principal); I48.91 Unspecified atrial fibrillation; E78.5 Hyperlipidemia, unspecified; Z87.891 Personal history of nicotine dependence; Z79.899 Other long term (current) drug therapy; Z88.9 Allergy status to unspecified drugs, medicaments and biological substances
CPT/HCPCS: 64490; 64491 ×2; J2250; J2795

== ENCOUNTER → 2023-04-06 | Outpatient (CLI) | payer MEDICARE, OTHER ==
[2023-04-06 14:19] VITALS: BP 146/84; PULSE 72; RESP 18; TEMP 98.2
--- NOTE | 2023-04-09 07:46 | P.PAINPG ---
PQRS Measure Charge Sheet Comment: A 67 yr old female with a history of severe and chronic mid back pain secondary to thoracic DDD and spondylosis with facet arthropathy without myelopathy presents today for evaluation s/p BL MBB T7-8, T8-9 #2. Pt states she experienced 80 % pain relief x 1 day s/p procedure. Pain level is provoked at 6 /10 in intensity, constant, localized in the thoracic spine, sharp in character w/o shooting pain. Pain is provoked by twisting. Pain is alleviated with medications, injections in the past, chiropractic treatments ended when she had a fusion, massage therapy semi weekly which she is currently in, topicals, repositioning and rest. Interventional pain procedures completed include BL MBB T7-9 x2 Patient is currently on Advil Patient denies any side effects of the medication(s), denies excessive drowsiness or sleepiness, denies suicidal ideation and reports that the current pain medication is helping to control the pain and improve activities of daily living. Patient denies any motor or sensory deficits. Patient denies any fever or night sweats, denies any change in the bowel movements or urination. Physical Examination: -Constitutional: Cooperative. Not in acute distress . - Neurologic: Cranial nerve II to XII intact. No focal neurological deficits. - Psychatric: Alert & oriented x 3. Matching mood & appropriate affect. Judgment and insight intact. - Musculoskeletal: Cervical spine: Muscle bulk/ tone/ strength in the bilateral upper extremities normal Vertebral body tenderness to palpation over Spurling test positive Distraction test positive Facet loading test positive TTP Thoracic spine Muscle bulk / tone/ strength in the bilateral paraspinal muscles normal Vertebral body tender to palpation over Facet loading test positive TTP over T7-8, T8-9 Lumbar spine: Motor bulk/ tone/ strength lower extremities , thigh and legs : 5/5 Deep tendon reflexes : Normal Knee Jerk. Normal Ankle Jerk . Vertebral body tenderness to palpation over Lumbar Facet Loading Test positive Straight Leg Raise: positive at 30 degrees right side/ left side Gaenslen's Test positive Sacral spine : Severe tenderness over the Sacroiliac joint: right side / left side Range of motion: Flexion of the lumbar spine <60 degrees Range of motion: Extension of the lumbar spine <20 degrees Gaenslen's Test positive right side / left side Too test: positive right side / left side Thigh Thrust Test positive right side / left side Sacral Thrust Test positive right side / left side Assessment and plan: Chronic mid back pain secondary to thoracic DDD, spondylosis with facet arthropathy without myelopathy Recommendation of BL RFA T7-8, T8-9. Pt exhibited sufficient and substantial pain relief w prior facet blocks of the medial branches. Risks, benefits of procedure discussed and pt verbalized understanding. Admits to anticoagulant use or medical history of diabetes. Protocol for discontinuation/ continuation of medications yolanda procedure discussed. Minimal anesthesia provided, if clinically indicated, consisting of Versed and Fentanyl. All questions answered. I have spent less than 30 minutes on patient care today. Dr Duran was available by phone for the evaluation of this patient. The time was used to review the medical records including relevant urine studies and Prescription history (MAPs), review of the available imaging, evaluation and examination of the patient, coordination of care with the medical staff and if applicable referring physicians, as well as creation of the medical record PQRS Narrative: Smoking Status Former smoker Hx Alcohol Use (MH) No Home Medications: Ambulatory Orders Pantoprazole Sodium [Protonix] 40 mg PO DAILY 06/27/17 Latanoprost/Pf [Latanoprost 0.005% Eye Drop] 1 drop RIGHT EYE DAILY 01/07/22 Levothyroxine Sodium [Synthroid] 75 mcg PO DAILY 01/07/22 amLODIPine [Norvasc] 10 mg PO DAILY 01/07/22 traMADol HCL [Ultram] 50 mg PO TID 01/07/22 Flecainide [Tambocor] 50 mg PO Q12HR 30 Days #60 tab 01/08/22 Metoprolol Succinate (ER) [Toprol XL] 50 mg PO DAILY 30 Days #30 tab 01/09/22 Losartan Potassium [Cozaar] 100 mg PO DAILY 10/10/22 Rosuvastatin [Crestor] 10 mg PO MOTH 10/10/22 Cyclobenzaprine [Flexeril] 10 mg PO HS PRN 11/24/22 Ergocalciferol [Vitamin D2 (1250 Mcg = 65005 Iu)] 1,250 mcg PO SA 11/24/22 Apixaban [Eliquis] 5 mg PO BID 01/21/23 Furosemide [Lasix] 20 mg PO Q2D 01/21/23 Controlled Substance Measures - Controlled Substance Measures Is patient prescribed a controlled substance at discharge?: No
== END ==
LOC: PNWHC3 12:41
PROVIDERS: ATTEND Specialist
DX: M51.34 Other intervertebral disc degeneration, thoracic region (principal); M47.814 Spondylosis without myelopathy or radiculopathy, thoracic region; G89.29 Other chronic pain; Z87.891 Personal history of nicotine dependence; Z91.048 Other nonmedicinal substance allergy status; Z88.1 Allergy status to other antibiotic agents; Z91.041 Radiographic dye allergy status; Z88.0 Allergy status to penicillin; Z91.018 Allergy to other foods
CPT/HCPCS: 99211

== ENCOUNTER 2023-11-26 05:47 | Emergency (ER) | payer MEDICARE, OTHER ==
[2023-11-26 06:13] LABS: Basophils % (A) 0 %; Eosinophils # (A) 0.1 k/uL (0-0.7); Eosinophils % (A) 1 %; HCT 45.6 % (34.0-46.0); HGB 15.3 gm/dL (11.4-16.0); Lymphocytes # (A) 1.4 k/uL (1.0-4.8); Lymphocytes % (A) 14 %; MCH 29.5 pg (25.0-35.0); MCHC 33.5 g/dL (31.0-37.0); MCV 88.1 fL (80.0-100.0); Mean Platelet Volume 6.7; Monocytes # (A) 0.5 k/uL (0-1.0); Monocytes % (A) 5 %; Neutrophils # (A) 7.9 k/uL (1.3-7.7); Neutrophils % (A) 79 %; Platelet Count 304 k/uL (150-450); RBC 5.17 m/uL (3.80-5.40); RDW 13.4 % (11.5-15.5)
[2023-11-26 06:26] LABS: ALT 35 U/L (4-34); AST 28 U/L (14-36); African American GFR (CKD) >90 (>60 ml/min/1.73 sqM); Albumin 3.6 g/dL (3.5-5.0); Alkaline Phosphatase 52 U/L (38-126); Anion Gap 7 mmol/L; Blood Urea Nitrogen 20 mg/dL (7-17); Calcium 8.4 mg/dL (8.4-10.2); Carbon Dioxide 25 mmol/L (22-30); Chloride 110 mmol/L (98-107); Glucose 126 mg/dL (74-99); Magnesium 1.8 mg/dL (1.6-2.3); Non-African American GFR(CKD) 90 (>60 ml/min/1.73 sqM); Potassium 3.8 mmol/L (3.5-5.1); Sodium 142 mmol/L (137-145); Total Bilirubin 0.5 mg/dL (0.2-1.3); Total Protein 6.2 g/dL (6.3-8.2)
[2023-11-26 06:33] LABS: INR 0.9 (<1.2)
--- NOTE | 2023-11-26 07:00 | XR ---
EXAM: XR Chest, 2 Views CLINICAL HISTORY: ITS.REASON XR Reason: dysrhythmia TECHNIQUE: Frontal and lateral views of the chest. COMPARISON: 01/21/23 FINDINGS: Lungs: Unremarkable. No consolidation. Pleural space: Unremarkable. No pneumothorax. Heart: Unremarkable. No cardiomegaly. Mediastinum: Unremarkable. Normal mediastinal contour. Bones/joints: Stable thoracic spondylosis. No acute fracture. Metallic hardware in the right shoulder unchanged. IMPRESSION: Normal chest x-rays.
--- NOTE | 2023-11-26 07:52 | ED ---
Arrhythmia/Palpitations HPI - General Chief Complaint: Arrhythmia/Palpitations Stated Complaint: Afib Time Seen by Provider: 11/26/23 05:58 Source: patient, EMS Mode of arrival: EMS Limitations: no limitations - History of Present Illness Initial Comments: 68-year-old female presents emergency department reporting palpitations. States it woke her from sleep 1 hour ago. She does have a history of A-fib and therefore is concerned that she is in A-fib. She denies any chest pain. No recent illnesses. EMS did start an IV and gave the patient 500 cc of normal saline. Patient states that upon hospital arrival she feels that all of her symptoms are completely resolved. She denies any calf pain or swelling. No nausea or vomiting. No recent medication changes. No other alleviating, precipitating or modifying factors - Related Data Home Medications Medication Instructions Recorded Confirmed Pantoprazole Sodium [Protonix] 40 mg PO DAILY 06/27/17 05/01/23 Latanoprost/Pf [Latanoprost 0.005% 1 drop RIGHT EYE DAILY 01/07/22 05/01/23 Eye Drop] Levothyroxine Sodium [Synthroid] 75 mcg PO DAILY 01/07/22 05/01/23 amLODIPine [Norvasc] 10 mg PO DAILY 01/07/22 05/01/23 traMADol HCL [Ultram] 50 mg PO TID 01/07/22 05/01/23 Losartan Potassium [Cozaar] 100 mg PO DAILY 10/10/22 05/01/23 Rosuvastatin [Crestor] 10 mg PO MOTH 10/10/22 05/01/23 Cyclobenzaprine [Flexeril] 10 mg PO HS PRN 11/24/22 05/01/23 Ergocalciferol [Vitamin D2 (1250 1,250 mcg PO SA 11/24/22 05/01/23 Mcg = 80479 Iu)] Apixaban [Eliquis] 5 mg PO BID 01/21/23 05/01/23 Furosemide [Lasix] 20 mg PO Q2D 01/21/23 05/01/23 Clindamycin [Cleocin] 150 mg PO Q6H 05/01/23 Montelukast [Singulair] 10 mg PO DAILY PRN 05/01/23 Previous Rx's Medication Instructions Recorded Flecainide [Tambocor] 50 mg PO Q12HR 30 Days #60 tab 01/08/22 Metoprolol Succinate (ER) [Toprol 50 mg PO DAILY 30 Days #30 tab 01/09/22 XL] Allergies Allergy/AdvReac Type Severity Reaction Status Date / Time adhesive tape Allergy miller skin Verified 05/01/23 13:20 Iodinated Contrast Media Allergy Swelling Verified 05/01/23 13:14 Penicillins Allergy Rash/Hives Verified 05/01/23 13:20 prednisone Allergy Swelling Verified 05/01/23 13:20 erythromycin base AdvReac Nausea & Verified 05/01/23 13:20 Vomiting steroid injections Allergy Swelling Uncoded 05/01/23 13:20 Review of Systems ROS Statement: Those systems with pertinent positive or pertinent negative responses have been documented in the HPI. ROS Other: All systems not noted in ROS Statement are negative. 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 History of Any Multi-Drug Resistant Organisms: None Reported Past Surgical History: Back Surgery, Cholecystectomy, Hysterectomy, Orthopedic Surgery Additional Past Surgical History / Comment(s): Posterior lumbar decompression/fusion, L eye prosthesis, R shoulder scopy/ligament repair, skin cancer removed from face, colonoscopy/benign polyp. PAIN CLINIC PROCEDURES Past Anesthesia/Blood Transfusion Reactions: No Reported Reaction Past Psychological History: Anxiety Smoking Status: Former smoker - Past Family History Mother Family Medical History: Congestive Heart Failure (CHF), Myocardial Infarction (ND), Renal Disease Father Family Medical History: CVA/TIA, Diabetes Mellitus General Exam Limitations: no limitations General appearance: alert, in no apparent distress Head exam: Present: atraumatic, normocephalic, normal inspection Eye exam: Present: normal appearance, PERRL, EOMI. Absent: scleral icterus, conjunctival injection, periorbital swelling ENT exam: Present: normal exam, mucous membranes moist Neck exam: Present: normal inspection. Absent: tenderness, meningismus, lymphadenopathy Respiratory exam: Present: normal lung sounds bilaterally. Absent: respiratory distress, wheezes, rales, rhonchi, stridor Cardiovascular Exam: Present: regular rate, normal rhythm, normal heart sounds. Absent: systolic murmur, diastolic murmur, rubs, gallop, clicks GI/Abdominal exam: Present: soft, normal bowel sounds. Absent: distended, tenderness, guarding, rebound, rigid Extremities exam: Present: normal inspection, full ROM, normal capillary refill. Absent: tenderness, pedal edema, joint swelling, calf tenderness Back exam: Present: normal inspection Neurological exam: Present: alert, oriented X3, CN II-XII intact Psychiatric exam: Present: normal affect, normal mood Skin exam: Present: warm, dry, intact, normal color. Absent: rash Course Vital Signs 11/26/23 11/26/23 11/26/23 05:49 06:33 08:31 Temperature 98.0 F 98.2 F Pulse Rate 94 90 71 Respiratory 18 16 18 Rate Blood Pressure 154/80 141/74 143/87 O2 Sat by Pulse 98 96 99 Oximetry Medical Decision Making - Medical Decision Making Was pt. sent in by a medical professional or institution (, PA, STOCK REPAIRER, urgent care, hospital, or retirement...) When possible be specific @ -No Did you speak to anyone other than the patient for history (EMS, parent, family, police, friend...)? What history was obtained from this source @ -EMS Did you review nursing and triage notes (agree or disagree)? Why? @ -I reviewed and agree with nursing and triage notes Were old charts reviewed (outside hosp., previous admission, EMS record, old EKG, old radiological studies, urgent care reports/EKG's, retirement records)? Report findings @ -No old charts were reviewed Differential Diagnosis (chest pain, altered mental status, abdominal pain women, abdominal pain men, vaginal bleeding, weakness, fever, dyspnea, syncope, headache, dizziness, GI bleed, back pain, seizure, CVA, palpatations, mental health, musculoskeletal)? @ -Differential Palpitations Ventricular arrhythmias, atrial arrhythmias, myocardial infarction, anemia, thyrotoxicosis, electrolyte imbalance, hypokalemia, pulmonary embolism, pu lmonary disease, drugs, alcohol, anxiety, stress.... This is not meant to be an all-inclusive list. EKG interpreted by me (3pts min.). @ -Yes and demonstrates sinus rhythm with a rate of 94. [place] interval 169. QRS 96. QTc of 400. No acute ST segment elevations or depressions X-rays interpreted by me (1pt min.). @ -Yes and demonstrates no acute process CT interpreted by me (1pt min.). @ -None done U/S interpreted by me (1pt. min.). @ -None done What testing was considered but not performed or refused? (CT, X-rays, U/S, labs)? Why? @ -None What meds were considered but not given or refused? Why? @ -None Did you discuss the management of the patient with other professionals (professionals i.e. , PA, STOCK REPAIRER, lab, RT, psych nurse, social work assistant, dock worker, teacher, ship's officer, high risk case manager)? Give summary @ -No Was smoking cessation discussed for >3mins.? @ -No Was critical care preformed (if so, how long)? @ -No Were there social determinants of health that impacted care today? How? (Homelessness, low income, unemployed, alcoholism, drug addiction, transportation, low edu. Level, literacy, decrease access to med. care, group home, rehab)? @ -No Was there de-escalation of care discussed even if they declined (Discuss DNR or withdrawal of care, Hospice)? DNR status @ -No What co-morbidities impacted this encounter? (DM, HTN, Smoking, COPD, CAD, Cancer, CVA, ARF, Chemo, Hep., AIDS, mental health diagnosis, sleep apnea, morbid obesity)? @ -A-fib Was patient admitted / discharged? Hospital course, mention meds given and route, prescriptions, significant lab abnormalities, going to OR and other pertinent info. @ -Upon arrival patient was placed into room 13. Thorough history and physical exam was performed. Patient placed on continuous pulse ox and cardiac monitoring. Twelve-lead EKG is obtained. Laboratory studies are conducted and chest x-ray is performed. Results are discussed with the patient. She has remained in normal sinus rhythm throughout her stay. At this time the patient feels comfortable being discharged home at this time. Recommend that she foll ow-up with her primary care doctor and return for any new or worsening symptoms. Patient agreeable to the plan she was discharged in stable condition Undiagnosed new problem with uncertain prognosis? @ -No Drug Therapy requiring intensive monitoring for toxicity (Heparin, Nitro, Insulin, Cardizem)? @ -No Were any procedures done? @ -No Diagnosis/symptom? @ -Acute palpitations, history of A-fib Home Acute, or Chronic, or Acute on Chronic? @ -Acute Uncomplicated (without systemic symptoms) or Complicated (systemic symptoms)? @ -Complicated Side effects of treatment? @ -No Exacerbation, Progression, or Severe Exacerbation? @ -No Poses a threat to life or bodily function? How? (Chest pain, [place], ND, pneumonia, PE, COPD, DKA, ARF, appy, cholecystitis, CVA, Diverticulitis, Homicidal, Anne cidal, threat to staff... and all critical care pts) @ -No - Lab Data Result diagrams: 11/26/23 06:00 11/26/23 06:00 Lab Results 11/26/23 11/26/23 11/26/23 Range/Units 06:00 06:00 06:00 WBC 10.0 (3.8-10.6) k/uL RBC 5.17 (3.80-5.40) m/uL Hgb 15.3 (11.4-16.0) gm/dL Hct 45.6 (34.0-46.0) % MCV 88.1 (80.0-100.0) fL MCH 29.5 (25.0-35.0) pg MCHC 33.5 (31.0-37.0) g/dL RDW 13.4 (11.5-15.5) % Plt Count 304 (150-450) k/uL MPV 6.7 Neutrophils % 79 % Lymphocytes % 14 % Monocytes % 5 % Eosinophils % 1 % Basophils % 0 % Neutrophils # 7.9 H (1.3-7.7) k/uL Lymphocytes # 1.4 (1.0-4.8) k/uL Monocytes # 0.5 (0-1.0) k/uL Eosinophils # 0.1 (0-0.7) k/uL Basophils # 0.0 (0-0.2) k/uL PT 10.0 (10.0-12.5) sec INR 0.9 (<1.2) APTT 20.0 L (22.0-30.0) sec Sodium 142 (137-145) mmol/L Potassium 3.8 (3.5-5.1) mmol/L Chloride 110 H (98-107) mmol/L Carbon Dioxide 25 (22-30) mmol/L Anion Gap 7 mmol/L BUN 20 H (7-17) mg/dL Creatinine 0.68 (0.52-1.04) mg/dL Est GFR (CKD-EPI)AfAm >90 (>60 ml/min/1.73 sqM) Est GFR (CKD-EPI)NonAf 90 (>60 ml/min/1.73 sqM) Glucose 126 H (74-99) mg/dL Calcium 8.4 (8.4-10.2) mg/dL Magnesium 1.8 (1.6-2.3) mg/dL Total Bilirubin 0.5 (0.2-1.3) mg/dL AST 28 (14-36) U/L ALT 35 H (4-34) U/L Alkaline Phosphatase 52 (38-126) U/L Troponin I (0.000-0.034) ng/mL Total Protein 6.2 L (6.3-8.2) g/dL Albumin 3.6 (3.5-5.0) g/dL TSH 2.700 (0.465-4.680) mIU/L 11/26/23 Range/Units 06:00 WBC (3.8-10.6) k/uL RBC (3.80-5.40) m/uL Hgb (11.4-16.0) gm/dL Hct (34.0-46.0) % MCV (80.0-100.0) fL MCH (25.0-35.0) pg MCHC (31.0-37.0) g/dL RDW (11.5-15.5) % Plt Count (150-450) k/uL MPV Neutrophils % % Lymphocytes % % Monocytes % % Eosinophils % % Basophils % % Neutrophils # (1.3-7.7) k/uL Lymphocytes # (1.0-4.8) k/uL Monocytes # (0-1.0) k/uL Eosinophils # (0-0.7) k/uL Basophils # (0-0.2) k/uL PT (10.0-12.5) sec INR (<1.2) APTT (22.0-30.0) sec Sodium (137-145) mmol/L Potassium (3.5-5.1) mmol/L Chloride (98-107) mmol/L Carbon Dioxide (22-30) mmol/L Anion Gap mmol/L BUN (7-17) mg/dL Creatinine (0.52-1.04) mg/dL Est GFR (CKD-EPI)AfAm (>60 ml/min/1.73 sqM) Est GFR (CKD-EPI)NonAf (>60 ml/min/1.73 sqM) Glucose (74-99) mg/dL Calcium (8.4-10.2) mg/dL Magnesium (1.6-2.3) mg/dL Total Bilirubin (0.2-1.3) mg/dL AST (14-36) U/L ALT (4-34) U/L Alkaline Phosphatase (38-126) U/L Troponin I <0.012 (0.000-0.034) ng/mL Total Protein (6.3-8.2) g/dL Albumin (3.5-5.0) g/dL TSH (0.465-4.680) mIU/L Disposition Clinical Impression: Palpitations Disposition: HOME SELF-CARE Condition: Stable Instructions (If sedation given, give patient instructions): Heart Palpitations (ED) Additional Instructions: Please check your heart rate at home if it feels elevated. Follow-up with your heart doctor and return for any new or worsening symptoms Is patient prescribed a controlled substance at d/c from ED?: No Referrals: Apurva Richardson DO [Primary Care Provider] - 1-2 days Time of Disposition: 07:52
[2023-11-26 09:11] VITALS: BP 143/87; PULSE 71; RESP 18; TEMP 98.2
== END 2023-11-26 08:35 | disposition home or self-care (01) ==
LOC: EC 05:47
DX: I48.91 Unspecified atrial fibrillation (principal); I10 Essential (primary) hypertension; K21.9 Gastro-esophageal reflux disease without esophagitis; E07.9 Disorder of thyroid, unspecified; F41.9 Anxiety disorder, unspecified; Z79.890 Hormone replacement therapy; Z79.899 Other long term (current) drug therapy; Z79.01 Long term (current) use of anticoagulants; Z88.0 Allergy status to penicillin; Z88.1 Allergy status to other antibiotic agents; Z88.8 Allergy status to other drugs, medicaments and biological substances; Z91.041 Radiographic dye allergy status
CPT/HCPCS: 36415; 71046; 80053; 83735; 84443; 84484; 85025; 85610; 85730; 93005; 99285

== ENCOUNTER → 2023-12-29 | Outpatient (CLI) | payer MEDICARE, OTHER ==
--- NOTE | 2023-12-29 16:27 | CTL ---
EXAMINATION TYPE: CT Low Dose Lung DATE OF EXAM ORDERED: 12/29/2023 HISTORY: History of smoking. Lung cancer screening CT DLP: 135.[address] CTDI: 4.0 mGy Automated exposure control for dose reduction was used. SCREENING VISIT: Initial COMPARISON: None TECHNIQUE: Low dose computed tomography scan was performed through the chest at 1 mm thick sections a nd reconstructed images in the coronal plane at [address] DIAGNOSTIC QUALITY: Satisfactory FINDINGS: LUNG NODULES: None. LUNGS: COPD: Severity: None Fibrosis: Severity: None Lymph nodes: None Other findings: None RIGHT PLEURAL SPACE: Effusion: None Calcification: None Thickening: None Pneumothorax: None LEFT PLEURAL SPACE: Effusion: None Calcification: None Thickening: None Pneumothorax: None HEART: Heart Size: Normal Coronary calcification: Mild Pericardial effusion: None OTHER FINDINGS: Upper abdomen: Normal Bony thorax: Normal Supraclavicular region: Normal Other: Ascending thoracic aorta at the level the main pulmonary artery measures 3.2 cm. The main pul monary artery at the bifurcation measures 2.8 cm. IMPRESSION: No suspicious changes for primary or metastatic neoplasm. FOLLOW UP CT CHEST RECOMMENDATION: Follow-up low-dose CT chest one year CT LUNG RAD: Lung-Rad 1 Negative
== END | disposition home or self-care (01) ==
LOC: RADCTMAIN 11:26
PROVIDERS: ATTEND Family Medicine
DX: Z12.2 Encounter for screening for malignant neoplasm of respiratory organs (principal); Z87.891 Personal history of nicotine dependence
CPT/HCPCS: 71271